=== PATIENT | male | born 1940 | race Caucasian/White ===

== ENCOUNTER → 2016-06-24 | Outpatient (CLI) | payer MEDICARE, OTHER | END | disposition home or self-care (01) | LOC: Rad HDHVI 11:01 | PROVIDERS: ATTEND Internal Medicine Cardiovascular Disease | DX: M41.84 Other forms of scoliosis, thoracic region (principal); M47.894 Other spondylosis, thoracic region; I77.810 Thoracic aortic ectasia | CPT/HCPCS: 72070 ==

== ENCOUNTER → 2016-07-02 | Outpatient (CLI) | payer MEDICARE, OTHER | END | disposition home or self-care (01) | LOC: Rad HDHVI 10:02 | PROVIDERS: ATTEND Internal Medicine Cardiovascular Disease | DX: I50.9 Heart failure, unspecified (principal); I48.0 Paroxysmal atrial fibrillation; M48.06 Spinal stenosis, lumbar region | CPT/HCPCS: 93306 ==

== ENCOUNTER → 2016-11-20 | Outpatient (CLI) | payer MEDICARE, OTHER ==
[~2016-11-20] VITALS: Ht 177.8 cm; Wt 99.8 kg
[~2016-11-20] MED LIST: ADENOSINE 84 MG in GIVE UN-DILUTED 0 ML IV ONE; ADENOSINE 90 MG/30 ML INJ IV ONE
== END | disposition home or self-care (01) ==
LOC: Rad HDHVI 10:04
PROVIDERS: ATTEND Internal Medicine Cardiovascular Disease
DX: I11.0 Hypertensive heart disease with heart failure (principal); J44.9 Chronic obstructive pulmonary disease, unspecified; E78.00 Pure hypercholesterolemia, unspecified; F17.210 Nicotine dependence, cigarettes, uncomplicated; Z95.0 Presence of cardiac pacemaker
CPT/HCPCS: 78452; 93005; 96374; 96375; A9500; J0153

== ENCOUNTER → 2016-12-22 | Outpatient (CLI) | payer MEDICARE, OTHER ==
[~2016-12-22] MED LIST changes: -ADENOSINE 84 MG in GIVE UN-DILUTED 0 ML IV ONE; -ADENOSINE 90 MG/30 ML INJ IV ONE; +ALPR0.25 PO; +ATOR20TA50 PO; +CARI-316 PO; +CHOL1TAB28 PO; +GABA-497 PO; +HYDR-4663 PO; +LIDO5DIS21 TOP; +LISI-706 PO; +METO-158 PO; +OME20T PO; +WARF4TAB33 PO
[2016-12-22 11:00] VITALS: BP 124/76
[2016-12-22 11:30] VITALS: BP 137/80
[2016-12-22 16:03] LABS: CONDITION Y; DEFINITIVE SEE PRINTOUT; Hemoglobin 11.8 g/dL (13.5-17.5); Mean Corpuscular Hemoglobin 23.9 pg (28.0-32.0); Mean Corpuscular Volume 74.7 fL (80.0-100.0); Mean Platelet Volume 10.8 fL (7.4-10.4); Platelet Count (auto) 184 10^3/uL (140-450); SUSPECT SEE PRINTOUT; White Blood Cell 20.9 10^3/uL (4.4-10.8)
[2016-12-22 16:10] LABS: Metamyelocytes % 0; Myelocytes % 0; Promyelocytes % 0; Reactive Lymphocytes 0; Red Cell Distribution Width 22.7 % (11.6-16.0)
[2016-12-22 16:11] LABS: INR 2.27 (0.9-1.15); Partial Thromboplastin Time 37.3 sec (22.64-33.71)
[2016-12-22 16:15] LABS: BUN/Creatinine Ratio 13.6; Calcium 8.7 mg/dL (8.5-10.1); Potassium 3.9 mmol/L (3.5-5.1)
[2016-12-22 16:25] LABS: Prothrombin Time 24.9 sec (9.37-12.3)
[2016-12-22 16:44] LABS: Anisocytosis Slight; Hypochromia Slight; Large Platelets FEW; Platelet Estimate Adequate
== END | disposition home or self-care (01) ==
LOC: Rad HDHVI 10:56
PROVIDERS: ATTEND Internal Medicine Cardiovascular Disease
DX: Z01.812 Encounter for preprocedural laboratory examination (principal); I10 Essential (primary) hypertension; J44.9 Chronic obstructive pulmonary disease, unspecified; D64.9 Anemia, unspecified; R79.1 Abnormal coagulation profile; Z95.0 Presence of cardiac pacemaker
CPT/HCPCS: 36415; 71020; 80048; 85007; 85027; 85610; 85730; 93005; G0463

== ENCOUNTER 2016-12-24 06:59 | Day surgery (SDC) | payer MEDICARE, OTHER ==
[2016-12-24] MEDS ORDERED: LIDOCAINE 2%HCL (LOCAL ANESTH.) INJ 20ML MDV ONE ×2 (07:37→08:57)
[2016-12-24] MEDS ORDERED: IOHEXOL 350 MG/ML 100ML IJ ONE (07:37)
[2016-12-24] MEDS ORDERED: fentaNYL CITRATE 100 MCG/2 ML VL ONE (08:32)
[2016-12-24] MEDS ORDERED: MIDAZOLAM HCL 1MG/1ML-2 ML VIAL ONE (08:32)
== END 2016-12-24 13:00 | disposition home or self-care (01) ==
LOC: CATH 06:59
PROVIDERS: ATTEND Internal Medicine Cardiovascular Disease
DX: I25.10 Atherosclerotic heart disease of native coronary artery without angina pectoris (principal); J44.9 Chronic obstructive pulmonary disease, unspecified; F17.200 Nicotine dependence, unspecified, uncomplicated; I10 Essential (primary) hypertension; E78.5 Hyperlipidemia, unspecified; I73.9 Peripheral vascular disease, unspecified
CPT/HCPCS: 93458; C1760; C1894; J1644; J2250; J3010; J7030; Q9967

== ENCOUNTER → 2017-07-06 | Outpatient (CLI) | payer MEDICARE, OTHER ==
[~2017-07-06] MED LIST changes: -GABA-497 PO; +GABA300C10 PO; -HYDR-4663 PO; +HYDR-4683 PO
== END | disposition home or self-care (01) ==
LOC: Rad HDHVI 10:01
PROVIDERS: ATTEND Internal Medicine Cardiovascular Disease
DX: M79.89 Other specified soft tissue disorders (principal)
CPT/HCPCS: 93926; 93970

== ENCOUNTER → 2017-08-20 | Outpatient (CLI) | payer MEDICARE, OTHER ==
[2017-08-20 12:24] LABS: BUN/Creatinine Ratio 15.3; Calcium 9.4 mg/dL (8.5-10.1); Potassium 4.2 mmol/L (3.5-5.1); Uric Acid 7.9 mg/dL (3.5-7.2)
== END | disposition home or self-care (01) ==
LOC: CHF HDHVI 10:23
PROVIDERS: ATTEND Internal Medicine Cardiovascular Disease
DX: M10.9 Gout, unspecified (principal); I10 Essential (primary) hypertension; I48.91 Unspecified atrial fibrillation
CPT/HCPCS: 36415; 80048; 84550; G0463

== ENCOUNTER → 2017-08-27 | Outpatient (CLI) | payer MEDICARE, OTHER ==
[2017-08-27 11:05] VITALS: BP 121/66
== END | disposition home or self-care (01) ==
LOC: LAB 11:07
PROVIDERS: ATTEND Internal Medicine Cardiovascular Disease
DX: I48.91 Unspecified atrial fibrillation (principal)
CPT/HCPCS: G0463

== ENCOUNTER → 2017-09-03 | Outpatient (CLI) | payer MEDICARE, OTHER ==
[2017-09-03 11:55] VITALS: BP 94/64
[2017-09-03 12:15] VITALS: BP 99/59
== END | disposition home or self-care (01) ==
LOC: CHF HDHVI 11:50
PROVIDERS: ATTEND Internal Medicine Cardiovascular Disease
DX: I48.91 Unspecified atrial fibrillation (principal)
CPT/HCPCS: 85610; G0463

== ENCOUNTER → 2017-09-08 | Outpatient (CLI) | payer MEDICARE, OTHER ==
[2017-09-08 11:10] VITALS: BP 90/54
[2017-09-08 11:30] VITALS: BP 80/59
== END | disposition home or self-care (01) ==
LOC: CHF HDHVI 11:06
PROVIDERS: ATTEND Internal Medicine Cardiovascular Disease
DX: I48.91 Unspecified atrial fibrillation (principal); I10 Essential (primary) hypertension
CPT/HCPCS: 85610; G0463

== ENCOUNTER → 2017-09-21 | Outpatient (CLI) | payer MEDICARE, OTHER ==
[~2017-09-21] VITALS: Ht 30.5 cm; Wt 88.0 kg
[~2017-09-21] MED LIST changes: +SODIUM CHLORIDE 0.9% 500 ML IV ONE
[2017-09-21 12:20] VITALS: BP 107/63
[2017-09-21 16:18] LABS: Hematocrit 36.2 % (41.0-53.0); Hemoglobin 10.9 g/dL (13.5-17.5); Mean Corpuscular Hemoglobin 24.1 pg (28.0-32.0); Mean Corpuscular Volume 80.6 fL (80.0-100.0); Platelet Count (auto) 272 10^3/uL (140-450); Red Blood Cells 4.49 10^6/uL (4.5-5.90)
[2017-09-21 16:19] LABS: BUN/Creatinine Ratio 12.9; Calcium 9.1 mg/dL (8.5-10.1); Magnesium 2.3 mg/dL (1.6-2.6); Potassium 4.3 mmol/L (3.5-5.1)
[2017-09-21 16:46] LABS: Red Cell Distribution Width 21.5 % (11.8-14.3)
[2017-09-21 16:55] LABS: Basophils % (manual) 0 (0.0-2.0); Eosinophils % (manual) 0 (0-7); Promyelocytes % 0; Reactive Lymphocytes 0
[2017-09-21 18:30] LABS: Band Neutrophils % (manual) 4; Lymphocytes % (manual) 1 (10.0-50.0); Metamyelocytes % 7; Monocytes % (manual) 2 (0-12); Myelocytes % 6
[2017-09-21 18:31] LABS: Blast Cells 10
== END | disposition home or self-care (01) ==
LOC: CHF HDHVI 10:47
PROVIDERS: ATTEND Internal Medicine Cardiovascular Disease
DX: D64.9 Anemia, unspecified (principal); I10 Essential (primary) hypertension; E83.40 Disorders of magnesium metabolism, unspecified; I48.91 Unspecified atrial fibrillation
CPT/HCPCS: 36415; 80048; 83735; 85007; 85027; 85610; 88300; 96360; G0463; J7040

== ENCOUNTER → 2017-09-22 | Outpatient (CLI) | payer MEDICARE, OTHER ==
[~2017-09-22] MED LIST changes: +KETOROLAC TROMETH 60MG/2ML VIAL IM ONE; -SODIUM CHLORIDE 0.9% 500 ML IV ONE
[2017-09-22 08:55] VITALS: BP 107/59
[2017-09-22 09:53] LABS: BUN/Creatinine Ratio 12.2; Calcium 8.9 mg/dL (8.5-10.1); Potassium 3.7 mmol/L (3.5-5.1)
[2017-09-22 10:15] VITALS: BP 106/58
[2017-09-22 10:18] LABS: Hematocrit 35.3 % (41.0-53.0); Hemoglobin 10.7 g/dL (13.5-17.5); Mean Corpuscular Hemoglobin 24.1 pg (28.0-32.0); Mean Corpuscular Hgb Conc. 30.2 g/dL (32.0-36.0); Mean Corpuscular Volume 79.8 fL (80.0-100.0); Platelet Count (auto) 254 10^3/uL (140-450); Red Blood Cells 4.43 10^6/uL (4.5-5.90)
[2017-09-22 10:21] LABS: Red Cell Distribution Width 21.2 % (11.8-14.3); White Blood Cell 205.2 10^3/uL (4.4-10.8)
[2017-09-22 10:27] LABS: Basophils % (manual) 0 (0.0-2.0); Promyelocytes % 0; Reactive Lymphocytes 0
[2017-09-22 13:11] LABS: Band Neutrophils % (manual) 6; Blast Cells 1; Eosinophils % (manual) 1 (0-7); Lymphocytes % (manual) 1 (10.0-50.0); Metamyelocytes % 1; Monocytes % (manual) 2 (0-12); Myelocytes % 25
== END | disposition home or self-care (01) ==
LOC: CHF HDHVI 08:54
PROVIDERS: ATTEND Internal Medicine Cardiovascular Disease
DX: D72.829 Elevated white blood cell count, unspecified (principal); I10 Essential (primary) hypertension
CPT/HCPCS: 36415; 80048; 85007; 85027; 96372; G0463; J1885

== ENCOUNTER → 2017-10-25 | Outpatient (CLI) | payer MEDICARE, OTHER ==
[~2017-10-25] MED LIST changes: +AMIO200T33 PO; +DILT30TA24 PO; -KETOROLAC TROMETH 60MG/2ML VIAL IM ONE; +METO25TA62 PO; +NILO150C PO
[2017-10-25 14:21] LABS: Hematocrit 35.4 % (41.0-53.0); Hemoglobin 11.2 g/dL (13.5-17.5); White Blood Cell 10.9 10^3/uL (4.4-10.8)
[2017-10-25 14:22] LABS: Mean Corpuscular Hemoglobin 26.7 pg (28.0-32.0); Mean Corpuscular Hgb Conc. 31.7 g/dL (32.0-36.0); Mean Corpuscular Volume 84.2 fL (80.0-100.0); Platelet Count (auto) 390 10^3/uL (140-450)
[2017-10-25 14:28] LABS: Red Cell Distribution Width 21.1 % (11.8-14.3)
[2017-10-25 14:40] LABS: Band Neutrophils % (manual) 0; Basophils % (manual) 0 (0.0-2.0); Blast Cells 0; Eosinophils % (manual) 0 (0-7); Promyelocytes % 0; Reactive Lymphocytes 0
[2017-10-25 15:57] LABS: Lymphocytes % (manual) 22 (10.0-50.0); Metamyelocytes % 1; Monocytes % (manual) 8 (0-12); Myelocytes % 4
== END | disposition home or self-care (01) ==
LOC: LAB 13:36
PROVIDERS: ATTEND Internal Medicine Cardiovascular Disease
DX: D64.0 Hereditary sideroblastic anemia (principal); I11.0 Hypertensive heart disease with heart failure; I50.9 Heart failure, unspecified; I48.91 Unspecified atrial fibrillation; D64.9 Anemia, unspecified; J44.9 Chronic obstructive pulmonary disease, unspecified; E78.5 Hyperlipidemia, unspecified; I73.9 Peripheral vascular disease, unspecified; E78.00 Pure hypercholesterolemia, unspecified; I48.0 Paroxysmal atrial fibrillation; Z87.891 Personal history of nicotine dependence; Z95.0 Presence of cardiac pacemaker
CPT/HCPCS: 36415; 85007; 85027

== ENCOUNTER 2017-11-02 15:27 | Inpatient (IN) | payer MEDICARE, OTHER ==
[~2017-11-02] VITALS: Ht 177.8 cm; Wt 93.0 kg
[~2017-11-02 15:27] MED LIST changes: -AMIO200T33 PO; -DILT30TA24 PO; -IOHEXOL 300 MG/ML 100ML BOTTLE IJ ONE; -METO25TA62 PO; -NILO150C PO; -VANCOMYCIN 1GM/250ML 250 ML IV ONE; -cefTRIAXone 1GM/10ml IVPUSH 10 ML IV ONE; -cefTRIAXone SOD 1,000 MG VL IM ONE
[2017-11-02 16:00] VITALS: BP 131/59
[2017-11-02] MEDS: SODIUM CHLORIDE 0.9% 1,000 ML IV SCH (16:00)
[2017-11-02 16:32] VITALS: BP 131/59
[2017-11-02 16:35] VITALS: BP 131/59
[2017-11-02] MEDS ORDERED: AMIO200T33 PO (17:12)
[2017-11-02] MEDS ORDERED: METO25TA62 PO (17:12)
[2017-11-02] MEDS ORDERED: DILT30TA24 PO (17:12)
[2017-11-02] MEDS ORDERED: NILO150C PO (17:14)
[2017-11-02] MEDS: cefTRIAXone 1GM/10ml IVPUSH 10 ML IV SCH (17:15)
[2017-11-02] MEDS: DILTIAZEM HCL 60 MG TAB PO SCH ×2 (17:50→22:21)
[2017-11-02] MEDS ORDERED: VANCOMYCIN 1GM/250ML 250 ML IV ONE (18:00)
[2017-11-02] MEDS: HYDROcodone-ACET 10/325MG TAB PO PRN (18:31)
[2017-11-02 22:00] VITALS: BP 118/67
[2017-11-02] MEDS: METOPROLOL SUCCINATE XL 50 MG TAB PO SCH (22:00)
[2017-11-02] MEDS: GABAPENTIN 300 MG CAP PO SCH (22:17)
[2017-11-02] MEDS: ATORVASTATIN 20 MG TAB PO SCH (22:18)
[2017-11-02] MEDS: TASIGNA 150 MG PO SCH (22:18)
[2017-11-02] MEDS: AMIODARONE HCL 200 MG TAB PO SCH (22:19)
[2017-11-02] MEDS: CARISOPRODOL 350 MG TAB PO PRN (22:20)
[2017-11-02] MEDS: ALPRAZolam 0.25 MG TAB PO SCH (22:20)
[2017-11-03] MEDS: SODIUM CHLORIDE 0.9% 1,000 ML IV SCH ×3 (02:15→22:15)
[2017-11-03] MEDS: DILTIAZEM HCL 60 MG TAB PO SCH ×4 (05:15→21:23)
[2017-11-03] MEDS: GABAPENTIN 300 MG CAP PO SCH ×3 (05:15→21:23)
[2017-11-03 05:30] VITALS: BP 127/67
[2017-11-03 06:32] LABS: Hematocrit 29.5 % (41.0-53.0); Hemoglobin 9.5 g/dL (13.5-17.5); Mean Corpuscular Hemoglobin 27.9 pg (28.0-32.0); Mean Corpuscular Volume 87.1 fL (80.0-100.0); Platelet Count (auto) 147 10^3/uL (140-450); Red Blood Cells 3.39 10^6/uL (4.5-5.90); White Blood Cell 7.6 10^3/uL (4.4-10.8)
[2017-11-03 06:57] LABS: Potassium 3.3 mmol/L (3.5-5.1)
[2017-11-03 07:15] LABS: Albumin 2.8 g/dL (3.4-5.0); BUN/Creatinine Ratio 7.1; Bilirubin, Total 0.9 mg/dL (0.2-1.0); Calcium 8.2 mg/dL (8.5-10.1); Total Protein 6.2 g/dL (6.4-8.2)
[2017-11-03 07:27] LABS: Red Cell Distribution Width 25.7 % (11.8-14.3)
[2017-11-03 07:29] LABS: Band Neutrophils % (manual) 0; Basophils % (manual) 0 (0.0-2.0); Blast Cells 0; Eosinophils % (manual) 0 (0-7); Metamyelocytes % 0; Promyelocytes % 0; Reactive Lymphocytes 0
[2017-11-03 09:00] VITALS: BP 136/69
[2017-11-03 10:00] LABS: Lymphocytes % (manual) 18 (10.0-50.0); Monocytes % (manual) 10 (0-12); Myelocytes % 1
[2017-11-03] MEDS: cefTRIAXone 1GM/10ml IVPUSH 10 ML IV SCH (10:09)
[2017-11-03] MEDS: PANTOPRAZOLE 40 MG TAB PO SCH (10:11)
[2017-11-03] MEDS: TASIGNA 150 MG PO SCH ×2 (10:11→21:25)
[2017-11-03] MEDS: AMIODARONE HCL 200 MG TAB PO SCH ×2 (10:11→21:24)
[2017-11-03] MEDS: METOPROLOL SUCCINATE XL 50 MG TAB PO SCH ×2 (10:23→21:23)
[2017-11-03] MEDS: ALPRAZolam 0.25 MG TAB PO SCH ×2 (10:23→21:23)
[2017-11-03 13:00] VITALS: BP 138/79
[2017-11-03] MEDS: HYDROcodone-ACET 10/325MG TAB PO PRN (14:18)
[2017-11-03 15:03] LABS: % Iron Saturation 13.2 % (20-55)
[2017-11-03 15:07] LABS: Folate (Folic Acid) 5.57 ng/mL (5.38-24)
[2017-11-03 16:51] VITALS: BP 139/72
[2017-11-03 20:00] VITALS: BP 111/64
[2017-11-03] MEDS: CARISOPRODOL 350 MG TAB PO PRN (21:22)
[2017-11-03] MEDS: ATORVASTATIN 20 MG TAB PO SCH (21:24)
[2017-11-04 04:59] VITALS: BP 117/55
[2017-11-04] MEDS: GABAPENTIN 300 MG CAP PO SCH ×3 (05:18→21:51)
[2017-11-04] MEDS: DILTIAZEM HCL 60 MG TAB PO SCH ×4 (05:19→21:54)
[2017-11-04 07:07] LABS: Immunoglobulin G, Serum 669 mg/dL (700-1600)
[2017-11-04] MEDS: SODIUM CHLORIDE 0.9% 1,000 ML IV SCH ×2 (08:15→18:46)
[2017-11-04 09:00] VITALS: BP 144/66
[2017-11-04] MEDS: TASIGNA 150 MG PO SCH ×2 (10:00→21:54)
[2017-11-04] MEDS: cefTRIAXone 1GM/10ml IVPUSH 10 ML IV SCH (10:28)
[2017-11-04] MEDS: AMIODARONE HCL 200 MG TAB PO SCH ×2 (10:28→21:52)
[2017-11-04] MEDS: ALPRAZolam 0.25 MG TAB PO SCH ×2 (10:32→21:51)
[2017-11-04] MEDS: PANTOPRAZOLE 40 MG TAB PO SCH (10:32)
[2017-11-04] MEDS: METOPROLOL SUCCINATE XL 50 MG TAB PO SCH ×2 (10:32→21:53)
[2017-11-04 13:00] VITALS: BP 143/80
[2017-11-04] MEDS: HYDROcodone-ACET 10/325MG TAB PO PRN (13:03)
[2017-11-04 17:10] VITALS: BP 136/77
[2017-11-04] MEDS: ATORVASTATIN 20 MG TAB PO SCH (21:53)
[2017-11-04] MEDS: CARISOPRODOL 350 MG TAB PO PRN (21:53)
[2017-11-04 22:41] VITALS: BP 145/74
[2017-11-05] MEDS: SODIUM CHLORIDE 0.9% 1,000 ML IV SCH ×2 (04:15→14:41)
[2017-11-05] MEDS: GABAPENTIN 300 MG CAP PO SCH ×3 (05:14→21:13)
[2017-11-05] MEDS: DILTIAZEM HCL 60 MG TAB PO SCH ×4 (05:14→21:13)
[2017-11-05 05:37] VITALS: BP 126/86
[2017-11-05] MEDS: cefTRIAXone 1GM/10ml IVPUSH 10 ML IV SCH (08:50)
[2017-11-05 09:00] VITALS: BP 116/55
[2017-11-05] MEDS: ALPRAZolam 0.25 MG TAB PO SCH ×2 (09:36→21:14)
[2017-11-05] MEDS: AMIODARONE HCL 200 MG TAB PO SCH ×2 (09:37→21:14)
[2017-11-05] MEDS: METOPROLOL SUCCINATE XL 50 MG TAB PO SCH ×2 (09:37→21:15)
[2017-11-05] MEDS: PANTOPRAZOLE 40 MG TAB PO SCH (09:38)
[2017-11-05] MEDS: TASIGNA 150 MG PO SCH ×2 (09:38→21:16)
[2017-11-05 13:00] VITALS: BP 116/55
[2017-11-05] MEDS: SODIUM FERR GLUC 62.5MG/5ML 125 MG in SODIUM CHL 0.9% 100 ML IV SCH (13:18)
[2017-11-05 16:55] VITALS: BP 139/74
[2017-11-05] MEDS: ATORVASTATIN 20 MG TAB PO SCH (21:14)
[2017-11-05] MEDS: CARISOPRODOL 350 MG TAB PO PRN (21:14)
[2017-11-05 22:12] VITALS: BP 125/75
[2017-11-06] MEDS: HYDROcodone-ACET 10/325MG TAB PO PRN ×3 (00:13→21:41)
[2017-11-06] MEDS: SODIUM CHLORIDE 0.9% 1,000 ML IV SCH ×3 (00:15→20:15)
[2017-11-06 05:30] VITALS: BP 120/83
[2017-11-06] MEDS: GABAPENTIN 300 MG CAP PO SCH ×3 (06:00→21:41)
[2017-11-06] MEDS: DILTIAZEM HCL 60 MG TAB PO SCH ×4 (06:01→21:43)
[2017-11-06] MEDS: ALPRAZolam 0.25 MG TAB PO SCH ×2 (06:16→21:41)
[2017-11-06 08:00] VITALS: BP 137/76
[2017-11-06 08:15] VITALS: BP 137/76
[2017-11-06] MEDS: PANTOPRAZOLE 40 MG TAB PO SCH (10:00)
[2017-11-06] MEDS: METOPROLOL SUCCINATE XL 50 MG TAB PO SCH ×2 (10:02→21:42)
[2017-11-06] MEDS: cefTRIAXone 1GM/10ml IVPUSH 10 ML IV SCH (10:02)
[2017-11-06] MEDS: AMIODARONE HCL 200 MG TAB PO SCH ×2 (10:03→21:43)
[2017-11-06] MEDS: TASIGNA 150 MG PO SCH ×2 (10:05→21:44)
[2017-11-06 13:07] VITALS: BP 131/75
[2017-11-06] MEDS: SODIUM FERR GLUC 62.5MG/5ML 125 MG in SODIUM CHL 0.9% 100 ML IV SCH (13:30)
[2017-11-06 16:41] VITALS: BP 125/74
[2017-11-06] MEDS: ATORVASTATIN 20 MG TAB PO SCH (21:40)
[2017-11-06] MEDS: CARISOPRODOL 350 MG TAB PO PRN (21:40)
[2017-11-06 22:00] VITALS: BP 127/77
[2017-11-07 04:40] VITALS: BP 137/80
[2017-11-07] MEDS: DILTIAZEM HCL 60 MG TAB PO SCH ×4 (06:17→22:00)
[2017-11-07] MEDS: SODIUM CHLORIDE 0.9% 1,000 ML IV SCH ×2 (06:17→16:15)
[2017-11-07] MEDS: GABAPENTIN 300 MG CAP PO SCH ×3 (06:17→22:01)
[2017-11-07 08:15] VITALS: BP 137/80
[2017-11-07 09:00] VITALS: BP 138/93
[2017-11-07] MEDS: TASIGNA 150 MG PO SCH ×2 (09:26→22:13)
[2017-11-07] MEDS: cefTRIAXone 1GM/10ml IVPUSH 10 ML IV SCH (09:26)
[2017-11-07] MEDS: ALPRAZolam 0.25 MG TAB PO SCH ×2 (09:28→22:01)
[2017-11-07] MEDS: METOPROLOL SUCCINATE XL 50 MG TAB PO SCH ×2 (09:28→22:01)
[2017-11-07] MEDS: PANTOPRAZOLE 40 MG TAB PO SCH (09:28)
[2017-11-07] MEDS: SODIUM FERR GLUC 62.5MG/5ML 125 MG in SODIUM CHL 0.9% 100 ML IV SCH (11:47)
[2017-11-07 13:00] VITALS: BP 126/76
[2017-11-07 17:00] VITALS: BP 129/71
[2017-11-07 21:27] VITALS: BP 149/92
[2017-11-07] MEDS: AMIODARONE HCL 200 MG TAB PO SCH (22:00)
[2017-11-07] MEDS: ATORVASTATIN 20 MG TAB PO SCH (22:00)
[2017-11-07] MEDS: CARISOPRODOL 350 MG TAB PO PRN (22:02)
[2017-11-07] MEDS: HYDROcodone-ACET 10/325MG TAB PO PRN (22:02)
[2017-11-08] MEDS: SODIUM CHLORIDE 0.9% 1,000 ML IV SCH ×3 (03:41→22:07)
[2017-11-08 04:45] VITALS: BP 127/81
[2017-11-08] MEDS: GABAPENTIN 300 MG CAP PO SCH ×3 (05:48→22:06)
[2017-11-08] MEDS: DILTIAZEM HCL 60 MG TAB PO SCH ×4 (05:48→22:06)
[2017-11-08 08:00] VITALS: BP 124/74
[2017-11-08 09:00] VITALS: BP 124/74
[2017-11-08] MEDS: TASIGNA 150 MG PO SCH ×2 (09:11→22:03)
[2017-11-08] MEDS: cefTRIAXone 1GM/10ml IVPUSH 10 ML IV SCH (09:11)
[2017-11-08] MEDS: PANTOPRAZOLE 40 MG TAB PO SCH (09:11)
[2017-11-08] MEDS: ALPRAZolam 0.25 MG TAB PO SCH ×2 (09:13→22:04)
[2017-11-08] MEDS: AMIODARONE HCL 200 MG TAB PO SCH ×2 (09:13→22:05)
[2017-11-08] MEDS: METOPROLOL SUCCINATE XL 50 MG TAB PO SCH ×2 (09:13→22:04)
[2017-11-08] MEDS: SODIUM FERR GLUC 62.5MG/5ML 125 MG in SODIUM CHL 0.9% 100 ML IV SCH (12:29)
[2017-11-08 13:00] VITALS: BP 130/77
[2017-11-08 14:12] LABS: Hematocrit 31.7 % (41.0-53.0); Hemoglobin 9.9 g/dL (13.5-17.5); Mean Corpuscular Hemoglobin 27.1 pg (28.0-32.0); Mean Corpuscular Hgb Conc. 31.2 g/dL (32.0-36.0); Mean Corpuscular Volume 86.8 fL (80.0-100.0); Platelet Count (auto) 221 10^3/uL (140-450); Red Blood Cells 3.65 10^6/uL (4.5-5.90); White Blood Cell 13.5 10^3/uL (4.4-10.8)
[2017-11-08 14:15] LABS: Red Cell Distribution Width 24.1 % (11.8-14.3)
[2017-11-08 14:16] LABS: Band Neutrophils % (manual) 0; Basophils % (manual) 0 (0.0-2.0); Blast Cells 0; Eosinophils % (manual) 0 (0-7); Promyelocytes % 0; Reactive Lymphocytes 0
[2017-11-08 15:16] LABS: Lymphocytes % (manual) 5 (10.0-50.0); Metamyelocytes % 3; Monocytes % (manual) 7 (0-12); Myelocytes % 3
[2017-11-08 17:00] VITALS: BP 151/94
[2017-11-08 22:04] VITALS: BP 143/75
[2017-11-08] MEDS: ATORVASTATIN 20 MG TAB PO SCH (22:04)
[2017-11-08] MEDS: HYDROcodone-ACET 10/325MG TAB PO PRN (22:34)
[2017-11-08] MEDS: CARISOPRODOL 350 MG TAB PO PRN (22:34)
[2017-11-09 04:57] VITALS: BP 133/77
[2017-11-09] MEDS: GABAPENTIN 300 MG CAP PO SCH ×3 (06:25→21:58)
[2017-11-09] MEDS: DILTIAZEM HCL 60 MG TAB PO SCH ×4 (06:26→22:00)
[2017-11-09 07:23] VITALS: BP 106/70
[2017-11-09 08:00] VITALS: BP 133/84
[2017-11-09] MEDS: SODIUM CHLORIDE 0.9% 1,000 ML IV SCH ×2 (08:15→18:15)
[2017-11-09] MEDS: AMIODARONE HCL 200 MG TAB PO SCH ×2 (09:17→21:58)
[2017-11-09] MEDS: PANTOPRAZOLE 40 MG TAB PO SCH (09:17)
[2017-11-09] MEDS: TASIGNA 150 MG PO SCH ×2 (09:17→22:18)
[2017-11-09] MEDS: METOPROLOL SUCCINATE XL 50 MG TAB PO SCH ×2 (09:18→22:01)
[2017-11-09] MEDS: cefTRIAXone 1GM/10ml IVPUSH 10 ML IV SCH (09:19)
[2017-11-09] MEDS: ALPRAZolam 0.25 MG TAB PO SCH ×2 (09:19→21:58)
[2017-11-09 11:49] VITALS: BP 138/83
[2017-11-09 13:58] LABS: INR 1.09 (0.9-1.15); Prothrombin Time 11.6 sec (9.27-12.13)
[2017-11-09] MEDS: SODIUM FERR GLUC 62.5MG/5ML 125 MG in SODIUM CHL 0.9% 100 ML IV SCH (14:37)
[2017-11-09 16:14] VITALS: BP 146/79
[2017-11-09] MEDS: ATORVASTATIN 20 MG TAB PO SCH (21:57)
[2017-11-09 22:00] VITALS: BP 139/83
[2017-11-09] MEDS: CARISOPRODOL 350 MG TAB PO PRN (22:18)
[2017-11-09] MEDS: HYDROcodone-ACET 10/325MG TAB PO PRN (22:19)
[2017-11-10] MEDS: SODIUM CHLORIDE 0.9% 1,000 ML IV SCH ×2 (04:15→14:15)
[2017-11-10 05:30] VITALS: BP 105/60
[2017-11-10] MEDS: GABAPENTIN 300 MG CAP PO SCH ×3 (05:48→21:48)
[2017-11-10] MEDS: DILTIAZEM HCL 60 MG TAB PO SCH ×4 (05:50→21:49)
[2017-11-10 08:27] VITALS: BP 116/61
[2017-11-10] MEDS: cefTRIAXone 1GM/10ml IVPUSH 10 ML IV SCH (10:47)
[2017-11-10] MEDS: AMIODARONE HCL 200 MG TAB PO SCH ×2 (10:48→21:48)
[2017-11-10] MEDS: TASIGNA 150 MG PO SCH ×2 (10:48→21:51)
[2017-11-10] MEDS: PANTOPRAZOLE 40 MG TAB PO SCH (10:48)
[2017-11-10] MEDS: METOPROLOL SUCCINATE XL 50 MG TAB PO SCH ×2 (10:49→21:50)
[2017-11-10] MEDS: ALPRAZolam 0.25 MG TAB PO SCH ×2 (10:49→21:51)
[2017-11-10] MEDS: SODIUM FERR GLUC 62.5MG/5ML 125 MG in SODIUM CHL 0.9% 100 ML IV SCH (12:00)
[2017-11-10 12:42] VITALS: BP 132/75
[2017-11-10 17:09] VITALS: BP 132/72
[2017-11-10 21:30] VITALS: BP 133/78
[2017-11-10] MEDS: CARISOPRODOL 350 MG TAB PO PRN (21:49)
[2017-11-10] MEDS: ATORVASTATIN 20 MG TAB PO SCH (21:49)
[2017-11-10] MEDS: HYDROcodone-ACET 10/325MG TAB PO PRN (21:58)
[2017-11-11] MEDS: SODIUM CHLORIDE 0.9% 1,000 ML IV SCH ×2 (00:15→09:07)
[2017-11-11 04:56] VITALS: BP 101/60
[2017-11-11] MEDS: GABAPENTIN 300 MG CAP PO SCH (05:15)
[2017-11-11] MEDS: DILTIAZEM HCL 60 MG TAB PO SCH ×2 (05:16→12:00)
[2017-11-11 07:26] LABS: Basophils # (auto) 0.4 uL; Basophils % (auto) 2.7 % (0.0-2.0); Eosinophils # (auto) 0.2 uL; Eosinophils % (auto) 1.2 % (0.0-7.0); Hematocrit 35.9 % (41.0-53.0); Hemoglobin 11.3 g/dL (13.5-17.5); Lymphocytes # (auto) 1.4 uL; Lymphocytes % (auto) 8.4 % (10.0-50.0); Mean Corpuscular Hemoglobin 27.1 pg (28.0-32.0); Mean Corpuscular Hgb Conc. 31.4 g/dL (32.0-36.0); Mean Corpuscular Volume 86.4 fL (80.0-100.0); Monocytes # (auto) 0.9 uL; Monocytes % (auto) 5.5 % (0.0-12.0); Neutrophils # (auto) 13.5 uL; Neutrophils % (auto) 82.2 % (37.0-80.0); Nucleated Red Blood Cells % 0.3 %; Platelet Count (auto) 275 10^3/uL (140-450); Red Blood Cells 4.16 10^6/uL (4.5-5.90); White Blood Cell 16.5 10^3/uL (4.4-10.8)
[2017-11-11 07:31] LABS: BUN/Creatinine Ratio 5.8; Calcium 8.2 mg/dL (8.5-10.1); Red Cell Distribution Width 23.7 % (11.8-14.3)
[2017-11-11 07:50] LABS: Potassium 2.8 mmol/L (3.5-5.1)
[2017-11-11 08:12] VITALS: BP 123/70
[2017-11-11] MEDS ORDERED: POTASSIUM CHL 20 Meq TABLET PO ONE ×3 (08:30→13:00)
[2017-11-11] MEDS: AMIODARONE HCL 200 MG TAB PO SCH (09:05)
[2017-11-11] MEDS: cefTRIAXone 1GM/10ml IVPUSH 10 ML IV SCH (09:05)
[2017-11-11] MEDS: TASIGNA 150 MG PO SCH (09:05)
[2017-11-11] MEDS: PANTOPRAZOLE 40 MG TAB PO SCH (09:06)
[2017-11-11] MEDS: METOPROLOL SUCCINATE XL 50 MG TAB PO SCH (09:06)
[2017-11-11] MEDS: ALPRAZolam 0.25 MG TAB PO SCH (09:06)
[2017-11-11] MEDS: POTASSIUM CHL 20 Meq TABLET PO SCH ×2 (09:06→11:33)
[2017-11-11] MEDS ORDERED: LEVOFLOXACIN 750MG 150 ML IV SCH (12:00)
[2017-11-11] MEDS ORDERED: SODIUM FERR GLUC 62.5MG/5ML 125 MG in SODIUM CHL 0.9% 100 ML IV SCH (13:00)
[2017-11-11 13:40] VITALS: BP 121/69
[2017-11-12] MEDS ORDERED: NILO150C PO (18:04)
[2017-11-12] MEDS ORDERED: HYDR-4683 PO (18:35)
== END 2017-11-11 17:50 | disposition home or self-care (01) | DRG 871 ==
LOC: WEST WING 15:28 → TELE-WESTW 11-06 05:41
PROVIDERS: ADMIT Internal Medicine Cardiovascular Disease; ATTEND Internal Medicine Cardiovascular Disease
DX: A41.9 Sepsis, unspecified organism (principal); J15.0 Pneumonia due to Klebsiella pneumoniae; J90 Pleural effusion, not elsewhere classified; E44.0 Moderate protein-calorie malnutrition; C92.10 Chronic myeloid leukemia, BCR/ABL-positive, not having achieved remission; I48.2 Chronic atrial fibrillation; R16.1 Splenomegaly, not elsewhere classified; J44.0 Chronic obstructive pulmonary disease with (acute) lower respiratory infection; J43.9 Emphysema, unspecified; E86.1 Hypovolemia; D50.9 Iron deficiency anemia, unspecified; I10 Essential (primary) hypertension; Z87.891 Personal history of nicotine dependence; I25.10 Atherosclerotic heart disease of native coronary artery without angina pectoris; Z85.828 Personal history of other malignant neoplasm of skin; Z95.0 Presence of cardiac pacemaker
CPT/HCPCS: 36415; 71046; 71250; 71260; 80048; 80053; 82607; 82746; 82784; 83540; 83550; 84550; 85007; 85025; 85027; 85610; 87040; 87070; 87077; 87081; 87186; 87205; 96365; 96367; G0463; J1956

== ENCOUNTER → 2017-11-02 | Outpatient (CLI) | payer MEDICARE, OTHER ==
[~2017-11-02] MED LIST changes: +IOHEXOL 300 MG/ML 100ML BOTTLE IJ ONE; +VANCOMYCIN 1GM/250ML 250 ML IV ONE; +cefTRIAXone 1GM/10ml IVPUSH 10 ML IV ONE; +cefTRIAXone SOD 1,000 MG VL IM ONE
[2017-11-02 15:02] LABS: Hematocrit 30.9 % (41.0-53.0); Hemoglobin 9.8 g/dL (13.5-17.5); Mean Corpuscular Hemoglobin 27.6 pg (28.0-32.0); Mean Corpuscular Hgb Conc. 31.8 g/dL (32.0-36.0); Mean Corpuscular Volume 86.8 fL (80.0-100.0); Platelet Count (auto) 187 10^3/uL (140-450); Red Blood Cells 3.56 10^6/uL (4.5-5.90); White Blood Cell 12.9 10^3/uL (4.4-10.8)
[2017-11-02 15:25] VITALS: BP 130/66
[2017-11-02 16:03] LABS: Red Cell Distribution Width 25.6 % (11.8-14.3)
[2017-11-02 16:16] LABS: Band Neutrophils % (manual) 0; Basophils % (manual) 0 (0.0-2.0); Blast Cells 0; Eosinophils % (manual) 0 (0-7); Promyelocytes % 0; Reactive Lymphocytes 0
[2017-11-02 16:18] LABS: Lymphocytes % (manual) 12 (10.0-50.0); Metamyelocytes % 2; Monocytes % (manual) 7 (0-12); Myelocytes % 2
[2017-11-04 21:51] LABS: BUN/Creatinine Ratio 5.4; Calcium 8.1 mg/dL (8.5-10.1)
== END | disposition home or self-care (01) ==
LOC: CHF HDHVI 13:40
PROVIDERS: ATTEND Internal Medicine Cardiovascular Disease
DX: J90 Pleural effusion, not elsewhere classified (principal); R04.2 Hemoptysis; J43.9 Emphysema, unspecified; I25.10 Atherosclerotic heart disease of native coronary artery without angina pectoris; R16.1 Splenomegaly, not elsewhere classified; C92.10 Chronic myeloid leukemia, BCR/ABL-positive, not having achieved remission; R07.9 Chest pain, unspecified; R50.9 Fever, unspecified; I48.91 Unspecified atrial fibrillation; I11.0 Hypertensive heart disease with heart failure; I50.9 Heart failure, unspecified; E78.5 Hyperlipidemia, unspecified; E78.00 Pure hypercholesterolemia, unspecified; I48.0 Paroxysmal atrial fibrillation; Z87.891 Personal history of nicotine dependence; Z95.0 Presence of cardiac pacemaker
CPT/HCPCS: 36415; 71046; 80048; 85007; 85027; 96365; 96367; G0463

== ENCOUNTER 2017-11-12 04:15 | Inpatient (IN) | payer MEDICARE, OTHER ==
[~2017-11-12] VITALS: Ht 177.8 cm; Wt 93.4 kg
[~2017-11-12 04:15] MED LIST changes: +AMIO200T33 PO; -CHOL1TAB28 PO; +DILT30TA24 PO; -LIDO5DIS21 TOP; -LISI-706 PO; -METO-158 PO; +METO25TA62 PO; +NILO150C PO; -WARF4TAB33 PO
[2017-11-12] MEDS ORDERED: cefTRIAXone 1GM/10ml IVPUSH 10 ML IV ONE ×2 (04:45→11:30)
[2017-11-12] MEDS ORDERED: methylPREDNISolone SOD SUCC 125 MG/2 ML VL IV ONE (04:45)
[2017-11-12] MEDS ORDERED: ALBUTEROL SULF 2.5 MG/0.5ML(0.5%) NEB SOLN NEB ONE (04:45)
[2017-11-12] MEDS ORDERED: IPRATROPIUM BROM 0.5 MG/2.5ML INH SOL NEB ONE (04:45)
[2017-11-12 05:12] LABS: Neutrophils # (auto) 22.7 uL; Platelet Count (auto) 273 10^3/uL (140-450)
[2017-11-12 05:14] LABS: Basophils # (auto) 0.5 uL; Basophils % (auto) 1.8 % (0.0-2.0); Eosinophils # (auto) 0.2 uL; Eosinophils % (auto) 0.9 % (0.0-7.0); Hematocrit 36.2 % (41.0-53.0); Hemoglobin 11.3 g/dL (13.5-17.5); Mean Corpuscular Hemoglobin 27.6 pg (28.0-32.0); Mean Corpuscular Hgb Conc. 31.1 g/dL (32.0-36.0); Mean Corpuscular Volume 88.9 fL (80.0-100.0); Monocytes # (auto) 1.3 uL; Monocytes % (auto) 5.2 % (0.0-12.0); Neutrophils % (auto) 88.1 % (37.0-80.0); Nucleated Red Blood Cells % 0.1 %; Red Blood Cells 4.08 10^6/uL (4.5-5.90); White Blood Cell 25.8 10^3/uL (4.4-10.8)
[2017-11-12 05:18] LABS: Red Cell Distribution Width 24.8 % (11.8-14.3)
[2017-11-12 05:33] LABS: Alanine Aminotransferase 18 U/L (16-61); Albumin 3.4 g/dL (3.4-5.0); Alkaline Phosphatase 90 U/L (45-117); Anion Gap 10 (5-15); Aspartate Aminotransferase 15 U/L (15-37); Bilirubin, Total 1.1 mg/dL (0.2-1.0); Blood Urea Nitrogen 9 mg/dL (7-18); Calcium 8.1 mg/dL (8.5-10.1); Carbon Dioxide 26 mmol/L (21-32); Chloride 105 mmol/L (98-107); GFR African American 70 mL/min; GFR Non-African American 58 mL/min; Glucose 179 mg/dL (74-106); Magnesium 2.3 mg/dL (1.6-2.6); Potassium 3.7 mmol/L (3.5-5.1); Sodium 141 mmol/L (136-145); Total Protein 7.4 g/dL (6.4-8.2)
[2017-11-12] MEDS: MAGNESIUM SULFATE 1GM/100ML 100 ML IV SCH ×2 (06:11→07:45)
[2017-11-12 08:44] LABS: Urine Bacteria NONE SEEN /hpf (None Seen); Urine Blood Negative /uL (Negative); Urine Hyaline Cast FEW /lpf (0 - 2); Urine Specific Gravity 1.006 (1.001-1.035); Urine WBC 2 /hpf (0 - 3)
[2017-11-12] MEDS ORDERED: MORPHINE SULFATE 8mg/ml INJ SDV IV PRN (11:00)
[2017-11-12] MEDS ORDERED: NITROGLYCERIN 0.4 MG SL TAB SL PRN (11:00)
[2017-11-12] MEDS: SODIUM CHLORIDE 0.9% 1,000 ML IV SCH ×2 (11:00→21:04)
[2017-11-12] MEDS ORDERED: ALPRAZolam 0.25 MG TAB PO ONE (11:30)
[2017-11-12] MEDS ORDERED: PANTOPRAZOLE 40 MG TAB PO ONE (11:30)
[2017-11-12] MEDS ORDERED: AMIODARONE HCL 200 MG TAB PO ONE (11:30)
[2017-11-12] MEDS ORDERED: METOPROLOL SUCCINATE XL 50 MG TAB PO ONE (11:30)
[2017-11-12] MEDS ORDERED: VANCOMYCIN 1GM/250ML 250 ML IV ONE (11:30)
[2017-11-12] MEDS ORDERED: IPRATROPIUM BROM 0.5 MG/2.5ML INH SOL NEB SCH (12:00)
[2017-11-12] MEDS: DILTIAZEM HCL 60 MG TAB PO SCH ×3 (12:16→22:05)
[2017-11-12] MEDS: VANCOMYCIN 1GM/250ML 250 ML IV SCH (13:27)
[2017-11-12] MEDS: methylPREDNISolone SOD SUCC 40 MG/ML VL IV SCH ×2 (14:08→22:02)
[2017-11-12 14:43] VITALS: BP 142/91
[2017-11-12 17:00] VITALS: BP 141/79
[2017-11-12 17:15] VITALS: BP 141/79
[2017-11-12] MEDS ORDERED: NILO150C PO (18:04)
[2017-11-12] MEDS ORDERED: HYDR-4683 PO (18:35)
[2017-11-12] MEDS: IPRATROPIUM BROM 0.5 MG/2.5ML INH SOL NEB SCH (20:07)
[2017-11-12 22:00] VITALS: BP 122/67
[2017-11-12] MEDS ORDERED: [UNRECOGNIZED DRUG - OTHER] PO SCH (22:00)
[2017-11-12] MEDS: ALPRAZolam 0.25 MG TAB PO SCH (22:00)
[2017-11-12] MEDS: METOPROLOL SUCCINATE XL 50 MG TAB PO SCH (22:04)
[2017-11-12] MEDS: ATORVASTATIN 20 MG TAB PO SCH (22:05)
[2017-11-12] MEDS: AMIODARONE HCL 200 MG TAB PO SCH (22:06)
[2017-11-12] MEDS: HYDROcodone-ACET 10/325MG TAB PO PRN (22:07)
[2017-11-12] MEDS: CARISOPRODOL 350 MG TAB PO PRN (22:19)
[2017-11-13] MEDS: IPRATROPIUM BROM 0.5 MG/2.5ML INH SOL NEB SCH ×4 (01:43→19:39)
[2017-11-13 05:00] VITALS: BP 114/71
[2017-11-13] MEDS: methylPREDNISolone SOD SUCC 40 MG/ML VL IV SCH ×3 (06:00→22:00)
[2017-11-13] MEDS: DILTIAZEM HCL 60 MG TAB PO SCH ×4 (06:00→22:00)
[2017-11-13 06:27] LABS: Albumin 2.9 g/dL (3.4-5.0); Calcium 8.4 mg/dL (8.5-10.1); Potassium 4.8 mmol/L (3.5-5.1)
[2017-11-13 06:30] LABS: BUN/Creatinine Ratio 12.1
[2017-11-13 06:32] LABS: Bilirubin, Total 0.7 mg/dL (0.2-1.0); Total Protein 6.8 g/dL (6.4-8.2)
[2017-11-13] MEDS: SODIUM CHLORIDE 0.9% 1,000 ML IV SCH (06:34)
[2017-11-13 09:00] VITALS: BP 144/86
[2017-11-13] MEDS ORDERED: VANCOMYCIN 1GM/250ML 250 ML IV SCH (10:00)
[2017-11-13] MEDS: ALPRAZolam 0.25 MG TAB PO SCH ×2 (11:21→22:00)
[2017-11-13] MEDS: PANTOPRAZOLE 40 MG TAB PO SCH (11:22)
[2017-11-13] MEDS: AMIODARONE HCL 200 MG TAB PO SCH ×2 (11:22→22:00)
[2017-11-13] MEDS: METOPROLOL SUCCINATE XL 50 MG TAB PO SCH ×2 (11:23→22:00)
[2017-11-13] MEDS: TASIGNA 150 MG PO SCH ×2 (11:25→22:00)
[2017-11-13] MEDS: cefTRIAXone 1GM/10ml IVPUSH 10 ML IV SCH (11:26)
[2017-11-13] MEDS: VANCOMYCIN 1GM/250ML 250 ML IV SCH (12:33)
[2017-11-13 12:44] VITALS: BP 146/81
[2017-11-13] MEDS: SODIUM FERR GLUC 62.5MG/5ML 125 MG in SODIUM CHL 0.9% 100 ML IV SCH (14:11)
[2017-11-13 14:17] LABS: Eosinophils # (auto) 0 uL; Lymphocytes # (auto) 0.5 uL; Platelet Count (auto) 227 10^3/uL (140-450); White Blood Cell 24.8 10^3/uL (4.4-10.8)
[2017-11-13 14:19] LABS: Basophils # (auto) 0.1 uL; Basophils % (auto) 0.3 % (0.0-2.0); Hematocrit 34.3 % (41.0-53.0); Hemoglobin 10.7 g/dL (13.5-17.5); Lymphocytes % (auto) 2.2 % (10.0-50.0); Mean Corpuscular Hemoglobin 27.1 pg (28.0-32.0); Mean Corpuscular Hgb Conc. 31.1 g/dL (32.0-36.0); Mean Corpuscular Volume 87.1 fL (80.0-100.0); Monocytes # (auto) 0.7 uL; Neutrophils # (auto) 23.4 uL; Neutrophils % (auto) 94.5 % (37.0-80.0); Red Blood Cells 3.93 10^6/uL (4.5-5.90)
[2017-11-13 14:23] LABS: Red Cell Distribution Width 23.8 % (11.8-14.3)
[2017-11-13 14:30] LABS: BUN/Creatinine Ratio 12.5; Calcium 8.1 mg/dL (8.5-10.1); Potassium 4.4 mmol/L (3.5-5.1)
[2017-11-13] MEDS: POTASSIUM CHL 20 Meq TABLET PO SCH (15:23)
[2017-11-13] MEDS: FUROSEMIDE 40 MG/4 ML VIAL IV SCH (15:25)
[2017-11-13] MEDS: HYDROcodone-ACET 10/325MG TAB PO PRN ×2 (16:34→22:59)
[2017-11-13 17:00] VITALS: BP 143/87
[2017-11-13] MEDS: ATORVASTATIN 20 MG TAB PO SCH (22:00)
[2017-11-13 22:13] VITALS: BP 134/77
[2017-11-13] MEDS: CARISOPRODOL 350 MG TAB PO PRN (22:59)
[2017-11-14 04:46] VITALS: BP 109/69
[2017-11-14] MEDS: methylPREDNISolone SOD SUCC 40 MG/ML VL IV SCH ×3 (05:38→21:43)
[2017-11-14] MEDS: DILTIAZEM HCL 60 MG TAB PO SCH ×4 (05:38→21:46)
[2017-11-14 06:00] LABS: Albumin 3.3 g/dL (3.4-5.0); BUN/Creatinine Ratio 14.7; Bilirubin, Total 0.5 mg/dL (0.2-1.0); Calcium 7.9 mg/dL (8.5-10.1); Potassium 3.5 mmol/L (3.5-5.1); Total Protein 6.9 g/dL (6.4-8.2)
[2017-11-14] MEDS: IPRATROPIUM BROM 0.5 MG/2.5ML INH SOL NEB SCH ×3 (06:14→18:00)
[2017-11-14 07:55] VITALS: BP 106/61
[2017-11-14] MEDS: METOPROLOL SUCCINATE XL 50 MG TAB PO SCH ×2 (10:00→21:45)
[2017-11-14] MEDS: cefTRIAXone 1GM/10ml IVPUSH 10 ML IV SCH (11:07)
[2017-11-14] MEDS: SODIUM FERR GLUC 62.5MG/5ML 125 MG in SODIUM CHL 0.9% 100 ML IV SCH (11:07)
[2017-11-14] MEDS: TASIGNA 150 MG PO SCH ×2 (11:08→21:47)
[2017-11-14] MEDS: PANTOPRAZOLE 40 MG TAB PO SCH (11:08)
[2017-11-14] MEDS: POTASSIUM CHL 20 Meq TABLET PO SCH (11:09)
[2017-11-14] MEDS: AMIODARONE HCL 200 MG TAB PO SCH ×2 (11:09→21:43)
[2017-11-14] MEDS: ALPRAZolam 0.25 MG TAB PO SCH ×2 (11:09→21:47)
[2017-11-14] MEDS: FUROSEMIDE 40 MG/4 ML VIAL IV SCH (11:11)
[2017-11-14] MEDS: VANCOMYCIN 1GM/250ML 250 ML IV SCH (13:00)
[2017-11-14 13:12] VITALS: BP 136/78
[2017-11-14 16:13] VITALS: BP 131/74
[2017-11-14] MEDS: HYDROcodone-ACET 10/325MG TAB PO PRN (20:11)
[2017-11-14] MEDS: ATORVASTATIN 20 MG TAB PO SCH (21:44)
[2017-11-14 22:00] VITALS: BP 132/76
[2017-11-15] MEDS: IPRATROPIUM BROM 0.5 MG/2.5ML INH SOL NEB SCH ×4 (00:08→19:15)
[2017-11-15 04:53] VITALS: BP 119/72
[2017-11-15] MEDS: methylPREDNISolone SOD SUCC 40 MG/ML VL IV SCH ×3 (05:23→21:10)
[2017-11-15] MEDS: DILTIAZEM HCL 60 MG TAB PO SCH ×4 (05:24→21:11)
[2017-11-15 06:28] LABS: Bilirubin, Total 0.5 mg/dL (0.2-1.0); Calcium 7.6 mg/dL (8.5-10.1); Potassium 3.4 mmol/L (3.5-5.1); Total Protein 6.1 g/dL (6.4-8.2)
[2017-11-15 09:00] VITALS: BP 129/79
[2017-11-15] MEDS ORDERED: POTASSIUM CHL 20 Meq TABLET PO ONE (09:45)
[2017-11-15] MEDS: SODIUM FERR GLUC 62.5MG/5ML 125 MG in SODIUM CHL 0.9% 100 ML IV SCH (10:00)
[2017-11-15] MEDS: FUROSEMIDE 40 MG/4 ML VIAL IV SCH (10:15)
[2017-11-15] MEDS: TASIGNA 150 MG PO SCH ×2 (10:16→21:12)
[2017-11-15] MEDS: cefTRIAXone 1GM/10ml IVPUSH 10 ML IV SCH (10:16)
[2017-11-15] MEDS: AMIODARONE HCL 200 MG TAB PO SCH ×2 (10:16→21:11)
[2017-11-15] MEDS: PANTOPRAZOLE 40 MG TAB PO SCH (10:17)
[2017-11-15] MEDS: METOPROLOL SUCCINATE XL 50 MG TAB PO SCH ×2 (10:17→21:12)
[2017-11-15] MEDS: POTASSIUM CHL 20 Meq TABLET PO SCH (10:17)
[2017-11-15] MEDS: ALPRAZolam 0.25 MG TAB PO SCH ×2 (10:17→21:13)
[2017-11-15 10:48] LABS: Red Blood Cells 4.34 10^6/uL (4.5-5.90)
[2017-11-15 10:50] LABS: Hemoglobin 11.7 g/dL (13.5-17.5); Mean Corpuscular Hgb Conc. 30.8 g/dL (32.0-36.0); Mean Corpuscular Volume 87.5 fL (80.0-100.0); Platelet Count (auto) 198 10^3/uL (140-450); Red Cell Distribution Width 24.3 % (11.8-14.3); White Blood Cell 14.8 10^3/uL (4.4-10.8)
[2017-11-15 10:51] LABS: Band Neutrophils % (manual) 0; Basophils % (manual) 0 (0.0-2.0); Blast Cells 0; Eosinophils % (manual) 0 (0-7); Myelocytes % 0; Promyelocytes % 0; Reactive Lymphocytes 0
[2017-11-15 11:58] LABS: Lymphocytes % (manual) 5 (10.0-50.0); Metamyelocytes % 1; Monocytes % (manual) 2 (0-12)
[2017-11-15 12:42] VITALS: BP 129/79
[2017-11-15 13:00] VITALS: BP 145/96
[2017-11-15] MEDS: VANCOMYCIN 1GM/250ML 250 ML IV SCH (13:42)
[2017-11-15] MEDS: HYDROcodone-ACET 10/325MG TAB PO PRN ×2 (13:43→19:38)
[2017-11-15 17:00] VITALS: BP 155/99
[2017-11-15] MEDS: ATORVASTATIN 20 MG TAB PO SCH (21:10)
[2017-11-15 22:00] VITALS: BP 134/81
[2017-11-16] MEDS: VANCOMYCIN 1GM/250ML 250 ML IV SCH ×2 (00:57→15:05)
[2017-11-16 05:00] VITALS: BP 125/72
[2017-11-16] MEDS: methylPREDNISolone SOD SUCC 40 MG/ML VL IV SCH ×2 (05:17→15:06)
[2017-11-16] MEDS: DILTIAZEM HCL 60 MG TAB PO SCH ×2 (05:17→12:13)
[2017-11-16 06:20] LABS: Potassium 3.7 mmol/L (3.5-5.1)
[2017-11-16 06:32] LABS: Albumin 2.9 g/dL (3.4-5.0); BUN/Creatinine Ratio 20.7; Calcium 7.5 mg/dL (8.5-10.1)
[2017-11-16 06:35] LABS: Bilirubin, Total 0.7 mg/dL (0.2-1.0); Total Protein 6.3 g/dL (6.4-8.2)
[2017-11-16] MEDS: IPRATROPIUM BROM 0.5 MG/2.5ML INH SOL NEB SCH ×3 (07:10→12:00)
[2017-11-16 08:18] VITALS: BP 142/88
[2017-11-16] MEDS: SODIUM FERR GLUC 62.5MG/5ML 125 MG in SODIUM CHL 0.9% 100 ML IV SCH (10:00)
[2017-11-16] MEDS: ALPRAZolam 0.25 MG TAB PO SCH (10:00)
[2017-11-16] MEDS: HYDROcodone-ACET 10/325MG TAB PO PRN (10:14)
[2017-11-16] MEDS: cefTRIAXone 1GM/10ml IVPUSH 10 ML IV SCH (10:14)
[2017-11-16] MEDS: PANTOPRAZOLE 40 MG TAB PO SCH (10:15)
[2017-11-16] MEDS: POTASSIUM CHL 20 Meq TABLET PO SCH (10:15)
[2017-11-16] MEDS: AMIODARONE HCL 200 MG TAB PO SCH (10:16)
[2017-11-16] MEDS: METOPROLOL SUCCINATE XL 50 MG TAB PO SCH (10:17)
[2017-11-16] MEDS: FUROSEMIDE 40 MG/4 ML VIAL IV SCH (10:17)
[2017-11-16] MEDS: TASIGNA 150 MG PO SCH (10:22)
[2017-11-16 16:10] VITALS: BP 140/78
[2017-11-16 16:18] VITALS: BP 140/78
[2017-11-16] MEDS ORDERED: TASIGNA 150 MG PO SCH (22:00)
== END 2017-11-16 17:30 | disposition home or self-care (01) | DRG 871 ==
LOC: ER 04:16 → TELE 04:17 → TELE-WESTW 15:40
PROVIDERS: ADMIT Internal Medicine Cardiovascular Disease; ATTEND Internal Medicine Cardiovascular Disease
DX: A41.9 Sepsis, unspecified organism (principal); J18.9 Pneumonia, unspecified organism; J96.90 Respiratory failure, unspecified, unspecified whether with hypoxia or hypercapnia; I11.0 Hypertensive heart disease with heart failure; I48.91 Unspecified atrial fibrillation; I50.20 Unspecified systolic (congestive) heart failure; C92.10 Chronic myeloid leukemia, BCR/ABL-positive, not having achieved remission; J44.0 Chronic obstructive pulmonary disease with (acute) lower respiratory infection; I25.10 Atherosclerotic heart disease of native coronary artery without angina pectoris; Z92.21 Personal history of antineoplastic chemotherapy
CPT/HCPCS: 36415; 36600; 71045; 80048; 80053; 80202; 81001; 82805; 83605; 83735; 83880; 84484; 85007; 85025; 85027; 87040; 87081; 93005; 94640; 96365; 96375

== ENCOUNTER → 2017-11-19 | Outpatient (CLI) | payer MEDICARE, OTHER ==
[~2017-11-19] MED LIST changes: +IOHEXOL 350 MG/ML 100ML IJ ONE
[2017-11-19 10:45] VITALS: BP 126/70
[2017-11-19 12:00] VITALS: BP 158/77
[2017-11-19 16:03] LABS: Basophils # (auto) 0 uL; Basophils % (auto) 0.4 % (0.0-2.0); Eosinophils # (auto) 0.1 uL; Eosinophils % (auto) 0.6 % (0.0-7.0); Hematocrit 39.5 % (41.0-53.0); Hemoglobin 12.7 g/dL (13.5-17.5); Lymphocytes # (auto) 0.3 uL; Lymphocytes % (auto) 2.6 % (10.0-50.0); Mean Corpuscular Hemoglobin 28.2 pg (28.0-32.0); Mean Corpuscular Hgb Conc. 32.2 g/dL (32.0-36.0); Mean Corpuscular Volume 87.7 fL (80.0-100.0); Monocytes # (auto) 0.5 uL; Monocytes % (auto) 4.1 % (0.0-12.0); Neutrophils # (auto) 12.2 uL; Neutrophils % (auto) 92.3 % (37.0-80.0); Nucleated Red Blood Cells % 0.1 %; White Blood Cell 13.2 10^3/uL (4.4-10.8)
[2017-11-19 16:11] LABS: Albumin 3.6 g/dL (3.4-5.0); Calcium 7.4 mg/dL (8.5-10.1); Magnesium 2.5 mg/dL (1.6-2.6); Potassium 3.7 mmol/L (3.5-5.1)
[2017-11-19 16:27] LABS: BUN/Creatinine Ratio 21.2; Bilirubin, Total 1.1 mg/dL (0.2-1.0); Total Protein 6.7 g/dL (6.4-8.2)
[2017-11-19 16:56] LABS: Platelet Count (auto) 118 10^3/uL (140-450); Red Cell Distribution Width 23.3 % (11.8-14.3)
== END | disposition home or self-care (01) ==
LOC: CHF HDHVI 10:57
PROVIDERS: ATTEND Internal Medicine Cardiovascular Disease
DX: J90 Pleural effusion, not elsewhere classified (principal); R16.1 Splenomegaly, not elsewhere classified; I11.0 Hypertensive heart disease with heart failure; I50.23 Acute on chronic systolic (congestive) heart failure; D64.9 Anemia, unspecified; J44.9 Chronic obstructive pulmonary disease, unspecified
CPT/HCPCS: 36415; 71260; 80053; 82306; 82565; 83735; 85025; 93005; G0463; Q9967

== ENCOUNTER → 2017-11-30 | Outpatient (CLI) | payer MEDICARE, BC ==
[~2017-11-30] MED LIST changes: -IOHEXOL 350 MG/ML 100ML IJ ONE
[2017-11-30 11:10] VITALS: BP 115/65
[2017-11-30 11:40] VITALS: BP 104/60
== END | disposition home or self-care (01) ==
LOC: CHF HDHVI 11:01
PROVIDERS: ATTEND Internal Medicine Cardiovascular Disease
DX: C95.90 Leukemia, unspecified not having achieved remission (principal); J44.9 Chronic obstructive pulmonary disease, unspecified; I11.0 Hypertensive heart disease with heart failure; I50.9 Heart failure, unspecified; E78.5 Hyperlipidemia, unspecified
CPT/HCPCS: G0463

== ENCOUNTER → 2017-12-08 | Outpatient (CLI) | payer MEDICARE, BC ==
[~2017-12-08] MED LIST changes: +IOHEXOL 350 MG/ML 100ML IJ ONE
[2017-12-08 09:45] VITALS: BP 113/64
[2017-12-08 10:30] VITALS: BP 129/71
== END | disposition home or self-care (01) ==
LOC: Rad HDHVI 09:39
PROVIDERS: ATTEND Internal Medicine Cardiovascular Disease
DX: C92.10 Chronic myeloid leukemia, BCR/ABL-positive, not having achieved remission (principal); J18.9 Pneumonia, unspecified organism; J43.9 Emphysema, unspecified; I25.10 Atherosclerotic heart disease of native coronary artery without angina pectoris; N13.30 Unspecified hydronephrosis; R91.1 Solitary pulmonary nodule; I11.0 Hypertensive heart disease with heart failure; I50.23 Acute on chronic systolic (congestive) heart failure; E78.5 Hyperlipidemia, unspecified; E78.00 Pure hypercholesterolemia, unspecified; R16.1 Splenomegaly, not elsewhere classified; R04.2 Hemoptysis
CPT/HCPCS: 71260; 82565; G0463; Q9967

== ENCOUNTER → 2018-01-25 | Outpatient (CLI) | payer MEDICARE, BC ==
[~2018-01-25] MED LIST changes: -IOHEXOL 350 MG/ML 100ML IJ ONE
== END | disposition home or self-care (01) ==
LOC: Rad HDHVI 08:46
PROVIDERS: ATTEND Internal Medicine Cardiovascular Disease
DX: I70.0 Atherosclerosis of aorta (principal); R16.1 Splenomegaly, not elsewhere classified; J18.9 Pneumonia, unspecified organism; N13.30 Unspecified hydronephrosis
CPT/HCPCS: 71250

== ENCOUNTER → 2018-02-28 | Outpatient (CLI) | payer MEDICARE, BC ==
[~2018-02-28] VITALS: Ht 30.5 cm; Wt 0.5 kg
[~2018-02-28] MED LIST changes: -CARI-316 PO; +CARI350T22 PO; +CYANOCOBALAMIN (B-12) 1000 MCG/1 ML VIAL IM ONE; +CYANOCOBALAMIN (B-12) 1000 MCG/1 ML VIAL ONE; +MVI in SODIUM CHLORIDE 0.9% 1,010 ML ONE; +MVI in SODIUM CHLORIDE 0.9% 500 ML IVB ONE; +ONDANSETRON HCL 4 MG/2 ML VIAL IV ONE; +ONDANSETRON HCL 4 MG/2 ML VIAL ONE
[2018-02-28 16:57] LABS: Basophils # (auto) 0.1 uL; Basophils % (auto) 0.7 % (0.0-2.0); Eosinophils # (auto) 0.1 uL; Eosinophils % (auto) 1.3 % (0.0-7.0); Hematocrit 41.9 % (41.0-53.0); Hemoglobin 14.5 g/dL (13.5-17.5); Lymphocytes # (auto) 1.3 uL; Lymphocytes % (auto) 15.4 % (10.0-50.0); Mean Corpuscular Hemoglobin 32.6 pg (28.0-32.0); Mean Corpuscular Hgb Conc. 34.7 g/dL (32.0-36.0); Mean Corpuscular Volume 94.1 fL (80.0-100.0); Monocytes # (auto) 0.7 uL; Monocytes % (auto) 8.5 % (0.0-12.0); Neutrophils # (auto) 6.2 uL; Neutrophils % (auto) 74.1 % (37.0-80.0); Nucleated Red Blood Cells % 0.2 %; Platelet Count (auto) 99 10^3/uL (140-450); Red Blood Cells 4.46 10^6/uL (4.5-5.90); Red Cell Distribution Width 15.2 % (11.8-14.3); White Blood Cell 8.3 10^3/uL (4.4-10.8)
[2018-02-28 17:13] LABS: Albumin 4.1 g/dL (3.4-5.0); BUN/Creatinine Ratio 17.1; Bilirubin, Total 0.6 mg/dL (0.2-1.0); Calcium 8.6 mg/dL (8.5-10.1); Potassium 4.1 mmol/L (3.5-5.1); Total Protein 7.2 g/dL (6.4-8.2)
[2018-03-01 13:45] VITALS: BP 135/76
== END | disposition home or self-care (01) ==
LOC: CHF HDHVI 14:03
PROVIDERS: ATTEND Internal Medicine Cardiovascular Disease
DX: C92.10 Chronic myeloid leukemia, BCR/ABL-positive, not having achieved remission (principal); D64.9 Anemia, unspecified; I10 Essential (primary) hypertension
CPT/HCPCS: 36415; 80053; 81206; 81207; 83615; 85025; 93005; 96365; 96366; 96372; G0463; J2405; J3411; J3420; J3475

== ENCOUNTER → 2018-05-16 | Outpatient (CLI) | payer MEDICARE, BC ==
[~2018-05-16] MED LIST changes: -CYANOCOBALAMIN (B-12) 1000 MCG/1 ML VIAL IM ONE; -CYANOCOBALAMIN (B-12) 1000 MCG/1 ML VIAL ONE; -MVI in SODIUM CHLORIDE 0.9% 1,010 ML ONE; -MVI in SODIUM CHLORIDE 0.9% 500 ML IVB ONE; -ONDANSETRON HCL 4 MG/2 ML VIAL IV ONE; -ONDANSETRON HCL 4 MG/2 ML VIAL ONE
== END | disposition home or self-care (01) ==
LOC: LAB 09:16
PROVIDERS: ATTEND Internal Medicine Cardiovascular Disease
DX: C61 Malignant neoplasm of prostate (principal)
CPT/HCPCS: 84153

== ENCOUNTER → 2018-11-28 | Outpatient (CLI) | payer MEDICARE, BC ==
[2018-11-28 16:33] LABS: Albumin 4.2 g/dL (3.4-5.0)
[2018-11-28 16:36] LABS: Bilirubin, Direct 0.2 mg/dL (0-0.2); Bilirubin, Total 0.8 mg/dL (0.2-1.0); Total Protein 7.6 g/dL (6.4-8.2)
[2018-12-01 09:07] LABS: Hepatitis B Surface Antibody Negative
[2018-12-01 09:43] LABS: Hepatitis A Total Antibody Positive
[2018-12-01 10:14] LABS: Hepatitis B Core Total AB Negative; Hepatitis B Surface Antigen Negative (Negative); Hepatitis C Antibody Negative (Negative)
== END | disposition home or self-care (01) ==
LOC: LAB 12:26
PROVIDERS: ATTEND Internal Medicine Cardiovascular Disease
DX: K74.1 Hepatic sclerosis (principal); R94.4 Abnormal results of kidney function studies; B20 Human immunodeficiency virus [HIV] disease; Z11.59 Encounter for screening for other viral diseases
CPT/HCPCS: 36415; 80076; 82565; 86704; 86706; 86708; 86803; 87340

== ENCOUNTER → 2018-11-29 | Outpatient (CLI) | payer MEDICARE, BC ==
[~2018-11-29] MED LIST changes: +IOHEXOL 350 MG/ML 100ML IJ ONE; +READI-CAT 2 (BARIUM SULF)(VANILLA SMOOTHIE) 450ML ONE
[2018-11-29 09:57] VITALS: BP 135/71
[2018-11-29 11:03] VITALS: BP 144/76
== END | disposition home or self-care (01) ==
LOC: Rad HDHVI 09:49
PROVIDERS: ATTEND Internal Medicine Cardiovascular Disease
DX: K31.4 Gastric diverticulum (principal); I70.0 Atherosclerosis of aorta; J98.4 Other disorders of lung
CPT/HCPCS: 74177; G0463; Q9967

== ENCOUNTER → 2019-01-16 | Outpatient (CLI) | payer MEDICARE, BC ==
[~2019-01-16] MED LIST changes: -HYDR-4683 PO; +HYDR-4833 PO; -IOHEXOL 350 MG/ML 100ML IJ ONE; +LEVOFLOXACIN 500MG 100 ML IV ONE; +MAGNESIUM CITRATE SOLUTION 300 ML BTL ONE; +MAGNESIUM CITRATE SOLUTION 300 ML BTL PO ONE; +ONDANSETRON HCL 4 MG/2 ML VIAL IV ONE; +ONDANSETRON HCL 4 MG/2 ML VIAL ONE; -READI-CAT 2 (BARIUM SULF)(VANILLA SMOOTHIE) 450ML ONE; +SODIUM CHLORIDE 0.9% 1,000 ML IV ONE
[2019-01-16 14:00] VITALS: BP 138/69
[2019-01-16 15:24] LABS: Albumin 3.9 g/dL (3.4-5.0); Calcium 8.6 mg/dL (8.5-10.1); Magnesium 2.8 mg/dL (1.6-2.6)
[2019-01-16 15:48] LABS: BUN/Creatinine Ratio 7.1; Bilirubin, Total 0.9 mg/dL (0.2-1.0); Potassium 3.7 mmol/L (3.5-5.1); Total Protein 7.8 g/dL (6.4-8.2)
[2019-01-16 15:55] LABS: Basophils # (auto) 0 uL; Basophils % (auto) 0.5 % (0.0-2.0); Eosinophils # (auto) 0.1 uL; Eosinophils % (auto) 0.9 % (0.0-7.0); Hematocrit 40.3 % (41.0-53.0); Hemoglobin 13.5 g/dL (13.5-17.5); Lymphocytes # (auto) 0.9 uL; Lymphocytes % (auto) 11.3 % (10.0-50.0); Mean Corpuscular Hemoglobin 30.8 pg (28.0-32.0); Mean Corpuscular Hgb Conc. 33.6 g/dL (32.0-36.0); Mean Corpuscular Volume 91.6 fL (80.0-100.0); Monocytes # (auto) 0.9 uL; Monocytes % (auto) 11.3 % (0.0-12.0); Neutrophils # (auto) 6.4 uL; Platelet Count (auto) 102 10^3/uL (140-450); Red Cell Distribution Width 14.7 % (11.8-14.3); White Blood Cell 8.4 10^3/uL (4.4-10.8)
--- NOTE | 2019-01-16 16:30 | NUR ---
PRESCRIPTION CALLED INTO PT [facility]ARM[facility]Y FOR LEVAQUIN 500MG PO DAILY X 7 DAYS.
[2019-01-16 17:02] VITALS: BP 133/70
--- NOTE | 2019-01-16 17:02 | NUR ---
[facility] Discharge Instructions See e-MAR for any mediations given with this visit. Patient education given on disease process. Patient verbalized understanding. Previous labs reviewed. Patient discharged in stable condition with after care instructions and follow up appointment. NOTE NS [id number] ADMIN BY RAMU AGGARWAL. LEVAQUIN [id number] ADMIN BY RAMU AGGARWAL. ZOFRAN IVP ADMIN BY RAMU AGGARWAL. MAG CITRATE ADMIN BY RAMU AGGARWAL.
== END | disposition home or self-care (01) ==
LOC: CHF HDHVI 14:01
PROVIDERS: ATTEND Internal Medicine Cardiovascular Disease
DX: I11.0 Hypertensive heart disease with heart failure (principal); I50.9 Heart failure, unspecified; R11.0 Nausea; D64.9 Anemia, unspecified; E83.40 Disorders of magnesium metabolism, unspecified; R53.83 Other fatigue; R50.9 Fever, unspecified
CPT/HCPCS: 36415; 80053; 83735; 83880; 85025; 96361; 96365; 96375; G0463; J1956; J2405; 96367

== ENCOUNTER → 2019-01-18 | Outpatient (CLI) | payer MEDICARE, BC ==
[~2019-01-18] MED LIST changes: -LEVOFLOXACIN 500MG 100 ML IV ONE; -MAGNESIUM CITRATE SOLUTION 300 ML BTL ONE; -MAGNESIUM CITRATE SOLUTION 300 ML BTL PO ONE; -ONDANSETRON HCL 4 MG/2 ML VIAL IV ONE; -ONDANSETRON HCL 4 MG/2 ML VIAL ONE; -SODIUM CHLORIDE 0.9% 1,000 ML IV ONE
[2019-01-18 09:53] VITALS: BP 129/66
--- NOTE | 2019-01-18 09:53 | NUR ---
[facility] PT ARRIVED AT THE [facility] TO FOLLOW UP FROM LAST WEDNESDAY, PT FEELS BETTER 0 DISTRESS VSS
[2019-01-18 10:55] LABS: Basophils # (auto) 0 uL; Basophils % (auto) 0.5 % (0.0-2.0); Eosinophils # (auto) 0.2 uL; Eosinophils % (auto) 2.7 % (0.0-7.0); Hematocrit 38.9 % (41.0-53.0); Lymphocytes # (auto) 0.9 uL; Lymphocytes % (auto) 15.6 % (10.0-50.0); Mean Corpuscular Hemoglobin 30.5 pg (28.0-32.0); Mean Corpuscular Hgb Conc. 33.3 g/dL (32.0-36.0); Mean Corpuscular Volume 91.6 fL (80.0-100.0); Monocytes # (auto) 0.6 uL; Neutrophils # (auto) 4.3 uL; Neutrophils % (auto) 71.2 % (37.0-80.0); Nucleated Red Blood Cells % 0.1 %; Platelet Count (auto) 106 10^3/uL (140-450); Red Blood Cells 4.25 10^6/uL (4.5-5.90); Red Cell Distribution Width 14.9 % (11.8-14.3)
[2019-01-18 11:01] LABS: Potassium 3.8 mmol/L (3.5-5.1)
--- NOTE | 2019-01-18 11:21 | NUR ---
Discharge Instructions See e-MAR for any mediations given with this visit. Patient education given on disease process. Patient verbalized understanding. Previous labs reviewed. Patient discharged in stable condition with after care instructions and follow up appointment. PT LABS DRAWN AND SENT STAT . PT VERBALIZES CONSTIPATION IS IMPROVED, ABX HAVE MADE PT FEEL BETTER LABS WNL. VITAMIN D SPRAY SAMPLE PROVIDED TO THE PATIENT
[2019-01-18 11:26] VITALS: BP 136/74
== END | disposition home or self-care (01) ==
LOC: CHF HDHVI 10:05
PROVIDERS: ATTEND Internal Medicine Cardiovascular Disease
DX: K90.9 Intestinal malabsorption, unspecified (principal); E87.5 Hyperkalemia; R94.4 Abnormal results of kidney function studies; C95.91 Leukemia, unspecified, in remission
CPT/HCPCS: 36415; 82306; 82565; 84132; 84520; 85025; G0463

== ENCOUNTER → 2019-08-08 | Outpatient (CLI) | payer MEDICARE, BC ==
[~2019-08-08] MED LIST changes: -METO25TA62 PO; +METO25TA93 PO
== END | disposition home or self-care (01) ==
LOC: Rad HDHVI 08:02
PROVIDERS: ATTEND Internal Medicine Cardiovascular Disease
DX: R00.2 Palpitations (principal); I11.0 Hypertensive heart disease with heart failure; I50.33 Acute on chronic diastolic (congestive) heart failure
CPT/HCPCS: 93306

== ENCOUNTER → 2019-08-14 | Outpatient (CLI) | payer MEDICARE, BC ==
[~2019-08-14] VITALS: Ht 180.3 cm; Wt 99.8 kg
[~2019-08-14] MED LIST changes: +ADENOSINE 84 MG in GIVE UN-DILUTED 0 ML IV ONE; +ADENOSINE 90 MG/30 ML INJ IV ONE
[2019-08-14 12:02] LABS: Basophils # (auto) 0 10 ^3/uL (0-0.2); Basophils % (auto) 0.5 % (0.0-2.0); Eosinophils # (auto) 0.2 10 ^3/uL (0-0.8); Eosinophils % (auto) 2.1 % (0.0-7.0); Hemoglobin 14.4 g/dL (13.5-17.5); Lymphocytes # (auto) 1.3 10 ^3/uL (0.4-5.4); Mean Corpuscular Hemoglobin 30.1 pg (28.0-32.0); Mean Corpuscular Hgb Conc. 33.4 g/dL (32.0-36.0); Monocytes # (auto) 0.8 10 ^3/uL (0-1.3); Monocytes % (auto) 9.6 % (0.0-12.0); Neutrophils # (auto) 5.6 10 ^3/uL (1.6-8.6); Neutrophils % (auto) 70.8 % (37.0-80.0); Nucleated Red Blood Cells % 0.1 %; Platelet Count (auto) 124 10^3/uL (140-450); Red Blood Cells 4.78 10^6/uL (4.5-5.90); Red Cell Distribution Width 15.6 % (11.8-14.3); White Blood Cell 7.9 10^3/uL (4.4-10.8)
[2019-08-14 12:21] LABS: Potassium 3.6 mmol/L (3.5-5.1)
[2019-08-14 12:32] LABS: Free T4 (Free Thyroxine) 0.97 ng/dL (0.89-1.76); Prostate Specific Antigen 0.42 ng/mL (0.0-4.0)
[2019-08-14 12:33] LABS: BUN/Creatinine Ratio 12.7; Bilirubin, Total 0.7 mg/dL (0.2-1.0); Calcium 8.8 mg/dL (8.5-10.1); Total Protein 7.8 g/dL (6.4-8.2)
[2019-08-14 12:43] LABS: Urine Blood Negative /uL (Negative); Urine Specific Gravity 1.006 (1.001-1.035)
== END | disposition home or self-care (01) ==
LOC: Rad HDHVI 08:11
PROVIDERS: ATTEND Internal Medicine Cardiovascular Disease
DX: I48.91 Unspecified atrial fibrillation (principal); I10 Essential (primary) hypertension; R07.9 Chest pain, unspecified; E03.9 Hypothyroidism, unspecified; K90.9 Intestinal malabsorption, unspecified; C61 Malignant neoplasm of prostate; E29.1 Testicular hypofunction; N39.0 Urinary tract infection, site not specified; D51.9 Vitamin B12 deficiency anemia, unspecified; Z79.899 Other long term (current) drug therapy; Z95.0 Presence of cardiac pacemaker
CPT/HCPCS: 36415; 78452; 80053; 80061; 81003; 82306; 82607; 83036; 84153; 84403; 84439; 84443; 85025; 93005; 96374; 96375; A9500; J0153

== ENCOUNTER 2020-05-12 11:54 | Inpatient (IN) | payer MEDICARE, BC ==
[~2020-05-12] VITALS: Ht 180.3 cm; Wt 91.9 kg
[2020-05-12] MEDS: GABAPENTIN 300 MG CAP PO SCH (00:45)
[2020-05-12] MEDS: AMIODARONE HCL 200 MG TAB PO SCH (00:45)
[2020-05-12] MEDS: METOPROLOL SUCCINATE XL 50 MG TAB PO SCH (00:45)
[~2020-05-12 11:54] MED LIST changes: -ADENOSINE 84 MG in GIVE UN-DILUTED 0 ML IV ONE; -ADENOSINE 90 MG/30 ML INJ IV ONE
[2020-05-12] MEDS ORDERED: ACETAMINOPHEN 500 MG TAB PO ONE ×3 (14:15→22:45)
[2020-05-12 15:40] LABS: Basophils # (auto) 0 10 ^3/uL (0-0.2); Basophils % (auto) 0.3 % (0.0-2.0); Eosinophils # (auto) 0 10 ^3/uL (0-0.8); Hematocrit 40.6 % (41.0-53.0); Hemoglobin 13.7 g/dL (13.5-17.5); Lymphocytes # (auto) 0.4 10 ^3/uL (0.4-5.4); Lymphocytes % (auto) 5.6 % (10.0-50.0); Mean Corpuscular Hemoglobin 30.3 pg (28.0-32.0); Mean Corpuscular Hgb Conc. 33.9 g/dL (32.0-36.0); Mean Corpuscular Volume 89.4 fL (80.0-100.0); Monocytes # (auto) 0.7 10 ^3/uL (0-1.3); Monocytes % (auto) 10.5 % (0.0-12.0); Neutrophils # (auto) 5.6 10 ^3/uL (1.6-8.6); Neutrophils % (auto) 83.6 % (37.0-80.0); Nucleated Red Blood Cells % 0.1 %; Platelet Count (auto) 66 10^3/uL (140-450); Red Blood Cells 4.54 10^6/uL (4.5-5.90); Red Cell Distribution Width 15.4 % (11.8-14.3); White Blood Cell 6.7 10^3/uL (4.4-10.8)
[2020-05-12 15:58] LABS: Albumin 3.7 g/dL (3.4-5.0); Anion Gap 10 (5-15); Blood Urea Nitrogen 18 mg/dL (7-18); Calcium 7.8 mg/dL (8.5-10.1); Carbon Dioxide 23 mmol/L (21-32); Chloride 96 mmol/L (98-107); Potassium 3.4 mmol/L (3.5-5.1); Sodium 129 mmol/L (136-145)
[2020-05-12 16:10] LABS: Alanine Aminotransferase 77 U/L (16-61); Alkaline Phosphatase 88 U/L (45-117); Aspartate Aminotransferase 92 U/L (15-37); BUN/Creatinine Ratio 12.5; Bilirubin, Total 1.1 mg/dL (0.2-1.0); GFR African American 61 mL/min; GFR Non-African American 51 mL/min; Glucose 142 mg/dL (74-106); Lactate Dehydrogenase 466 U/L (87-241); Total Protein 7.5 g/dL (6.4-8.2)
[2020-05-12] MEDS ORDERED: MORPHINE SULF INJ 2 MG/ML SYRINGE 1ML IV PRN (17:00)
[2020-05-12] MEDS ORDERED: POTASSIUM CHL 20 Meq TABLET PO ONE (17:00)
[2020-05-12] MEDS ORDERED: NITROGLYCERIN 0.4 MG SL TAB SL PRN (17:00)
[2020-05-12] MEDS ORDERED: ONDANSETRON HCL 4 MG/2 ML VIAL IV PRN (17:00)
[2020-05-12] MEDS ORDERED: FUROSEMIDE 40 MG/4 ML VIAL IV ONE (17:00)
[2020-05-12 18:32] LABS: INR 1.12 (0.9-1.15); Partial Thromboplastin Time 38.6 sec (23.0-31.2)
[2020-05-12] MEDS ORDERED: NILOTINIB 150 MG PO SCH (22:00)
[2020-05-12] MEDS: ALPRAZolam 0.25 MG TAB PO SCH (22:00)
[2020-05-13] MEDS: NILOTINIB 150 MG PO SCH ×2 (06:00→18:54)
[2020-05-13] MEDS: ZINC SULFATE 220mg CAP or TAB PO SCH (10:00)
[2020-05-13] MEDS: FAMOTIDINE 20 MG TAB PO SCH (10:00)
[2020-05-13] MEDS: ALPRAZolam 0.25 MG TAB PO SCH ×2 (10:00→22:32)
[2020-05-13] MEDS: ASCORBIC ACID 1,000 MG TAB PO SCH (10:00)
[2020-05-13] MEDS: METOPROLOL SUCCINATE XL 50 MG TAB PO SCH ×2 (10:00→22:30)
[2020-05-13] MEDS: AMIODARONE HCL 200 MG TAB PO SCH ×2 (10:00→22:32)
[2020-05-13] MEDS: CHOLECALCIFEROL (VITD3) 2,000 UNIT CAP PO SCH (10:00)
[2020-05-13] MEDS ORDERED: DexAMETHasone SOD PHOS 10MG/1ML VIAL INJ IV SCH (10:00)
[2020-05-13] MEDS ORDERED: REMDESIVIR PER PHARMACY IV SCH (10:00)
[2020-05-13] MEDS: AZITHROMYCIN 500MG/ 250ML 250 ML IV SCH (10:00)
[2020-05-13] MEDS: GABAPENTIN 300 MG CAP PO SCH ×3 (10:27→22:30)
[2020-05-13] MEDS ORDERED: ACETAMINOPHEN 650 mg PER 20.3 mL UD ONE (10:50)
[2020-05-13] MEDS: HYDROcodone-ACET 10/325MG TAB PO PRN (10:56)
[2020-05-13] MEDS: ACETAMINOPHEN 650 mg PER 20.3 mL UD PO PRN ×2 (11:16→22:38)
[2020-05-13] MEDS ORDERED: POTASSIUM CHL 20 Meq TABLET PO ONE ×2 (11:20→11:30)
[2020-05-13] MEDS ORDERED: REMDESIVIR 200 MG in NS 210ml LOADING DOSE ADULT IV ONE (12:15)
[2020-05-13 12:31] LABS: Basophils # (auto) 0 10 ^3/uL (0-0.2); Basophils % (auto) 0.2 % (0.0-2.0); Eosinophils # (auto) 0 10 ^3/uL (0-0.8); Hematocrit 43.2 % (41.0-53.0); Hemoglobin 14.6 g/dL (13.5-17.5); Lymphocytes # (auto) 0.4 10 ^3/uL (0.4-5.4); Lymphocytes % (auto) 6.6 % (10.0-50.0); Mean Corpuscular Hemoglobin 30.3 pg (28.0-32.0); Mean Corpuscular Hgb Conc. 33.8 g/dL (32.0-36.0); Mean Corpuscular Volume 89.6 fL (80.0-100.0); Monocytes # (auto) 0.6 10 ^3/uL (0-1.3); Monocytes % (auto) 8.6 % (0.0-12.0); Neutrophils # (auto) 5.5 10 ^3/uL (1.6-8.6); Neutrophils % (auto) 84.6 % (37.0-80.0); Nucleated Red Blood Cells % 0.1 %; Platelet Count (auto) 79 10^3/uL (140-450); Red Blood Cells 4.82 10^6/uL (4.5-5.90); Red Cell Distribution Width 15.2 % (11.8-14.3); White Blood Cell 6.5 10^3/uL (4.4-10.8)
[2020-05-13 12:41] LABS: Albumin 3.6 g/dL (3.4-5.0)
[2020-05-13 12:44] LABS: BUN/Creatinine Ratio 11.3; Bilirubin, Total 0.9 mg/dL (0.2-1.0); Total Protein 7.6 g/dL (6.4-8.2)
[2020-05-13 13:02] VITALS: BP 128/72
[2020-05-13 17:00] VITALS: BP 129/80
[2020-05-13] MEDS: POTASSIUM CHL 20MEQ/100ML 100 ML IV SCH ×2 (18:54→23:34)
[2020-05-14] MEDS ORDERED: POTASSIUM CHL 20MEQ/100ML 100 ML IV SCH (02:15)
[2020-05-14] MEDS: POTASSIUM CHL 20MEQ/100ML 100 ML IV SCH (02:15)
[2020-05-14 04:51] LABS: Urine Amorphous Crystal FEW /hpf (None Seen); Urine Bacteria FEW /hpf (None Seen); Urine Blood Negative /uL (Negative); Urine Hyaline Cast FEW /lpf (0 - 2); Urine Specific Gravity 1.019 (1.001-1.035); Urine WBC 1 /hpf (0 - 3)
[2020-05-14 06:00] VITALS: BP 109/73
[2020-05-14] MEDS: GABAPENTIN 300 MG CAP PO SCH ×3 (07:26→22:00)
[2020-05-14] MEDS: NILOTINIB 150 MG PO SCH ×2 (07:27→18:25)
[2020-05-14 08:00] VITALS: BP 122/73
[2020-05-14] MEDS: ACETAMINOPHEN 650 mg PER 20.3 mL UD PO PRN (08:17)
[2020-05-14 08:20] LABS: Potassium 3.6 mmol/L (3.5-5.1)
[2020-05-14 08:28] LABS: Albumin 3.2 g/dL (3.4-5.0); BUN/Creatinine Ratio 15.1; Calcium 7.7 mg/dL (8.5-10.1); Total Protein 6.9 g/dL (6.4-8.2)
[2020-05-14] MEDS ORDERED: REMDESIVIR PER PHARMACY IV SCH ×2 (10:00→11:00)
[2020-05-14] MEDS: AZITHROMYCIN 500MG/ 250ML 250 ML IV SCH (10:26)
[2020-05-14] MEDS: ZINC SULFATE 220mg CAP or TAB PO SCH (10:27)
[2020-05-14] MEDS: AMIODARONE HCL 200 MG TAB PO SCH ×2 (10:28→22:01)
[2020-05-14] MEDS: METOPROLOL SUCCINATE XL 50 MG TAB PO SCH ×2 (10:28→22:00)
[2020-05-14] MEDS: FAMOTIDINE 20 MG TAB PO SCH (10:28)
[2020-05-14] MEDS: ASCORBIC ACID 1,000 MG TAB PO SCH (10:29)
[2020-05-14] MEDS: CHOLECALCIFEROL (VITD3) 2,000 UNIT CAP PO SCH (10:29)
[2020-05-14] MEDS: ALPRAZolam 0.25 MG TAB PO SCH ×2 (10:49→22:00)
[2020-05-14 12:00] VITALS: BP 113/75
[2020-05-14] MEDS: DexAMETHasone SOD PHOS 10MG/1ML VIAL INJ IV SCH (14:14)
[2020-05-14 16:59] VITALS: BP 118/62
[2020-05-14] MEDS: REMDESIVIR 100mg in NS 230ml DAILYx4DAYS (NO VENT) IV SCH (17:22)
[2020-05-14 22:00] VITALS: BP 116/74
[2020-05-14] MEDS: CARISOPRODOL 350 MG TAB PO PRN (22:01)
[2020-05-14] MEDS: HYDROcodone-ACET 10/325MG TAB PO PRN (22:02)
[2020-05-14] MEDS: guaiFENesin-DM 100/10mg/5ml SYR PO PRN (22:08)
[2020-05-15 05:00] VITALS: BP 120/71
[2020-05-15] MEDS: GABAPENTIN 300 MG CAP PO SCH ×3 (06:16→23:08)
[2020-05-15] MEDS: NILOTINIB 150 MG PO SCH ×2 (06:21→18:53)
[2020-05-15 07:33] LABS: Albumin 3.4 g/dL (3.4-5.0); Calcium 8.3 mg/dL (8.5-10.1)
[2020-05-15 07:36] LABS: BUN/Creatinine Ratio 20.6; Bilirubin, Total 0.9 mg/dL (0.2-1.0); Total Protein 7.3 g/dL (6.4-8.2)
[2020-05-15 09:00] VITALS: BP 118/69
[2020-05-15] MEDS: FAMOTIDINE 20 MG TAB PO SCH (10:00)
[2020-05-15] MEDS: DexAMETHasone SOD PHOS 10MG/1ML VIAL INJ IV SCH (10:22)
[2020-05-15] MEDS: AMIODARONE HCL 200 MG TAB PO SCH ×2 (10:22→23:08)
[2020-05-15] MEDS: ZINC SULFATE 220mg CAP or TAB PO SCH (10:22)
[2020-05-15] MEDS: AZITHROMYCIN 500MG/ 250ML 250 ML IV SCH (10:22)
[2020-05-15] MEDS: ASCORBIC ACID 1,000 MG TAB PO SCH (10:23)
[2020-05-15] MEDS: METOPROLOL SUCCINATE XL 50 MG TAB PO SCH ×2 (10:23→23:09)
[2020-05-15] MEDS: ALPRAZolam 0.25 MG TAB PO SCH ×2 (10:24→23:09)
[2020-05-15] MEDS: CHOLECALCIFEROL (VITD3) 2,000 UNIT CAP PO SCH (10:24)
[2020-05-15 13:00] VITALS: BP 104/64
[2020-05-15] MEDS: HYDROcodone-ACET 10/325MG TAB PO PRN (14:31)
[2020-05-15 17:00] VITALS: BP 114/77
[2020-05-15] MEDS: REMDESIVIR 100mg in NS 230ml DAILYx4DAYS (NO VENT) IV SCH (17:45)
[2020-05-15] MEDS: ACETAMINOPHEN 650 mg PER 20.3 mL UD PO PRN (20:41)
[2020-05-16 05:00] VITALS: BP 124/73
[2020-05-16] MEDS: NILOTINIB 150 MG PO SCH ×2 (07:38→18:00)
[2020-05-16] MEDS: GABAPENTIN 300 MG CAP PO SCH ×3 (07:38→21:39)
[2020-05-16 07:48] LABS: Calcium 8.1 mg/dL (8.5-10.1); Potassium 3.6 mmol/L (3.5-5.1)
[2020-05-16 07:53] LABS: Albumin 3.1 g/dL (3.4-5.0); BUN/Creatinine Ratio 22.1; Bilirubin, Total 0.8 mg/dL (0.2-1.0); Total Protein 6.7 g/dL (6.4-8.2)
[2020-05-16 08:30] VITALS: BP 124/70
[2020-05-16 09:00] VITALS: BP 124/70
[2020-05-16] MEDS: AMIODARONE HCL 200 MG TAB PO SCH ×2 (09:27→21:39)
[2020-05-16] MEDS: DexAMETHasone SOD PHOS 10MG/1ML VIAL INJ IV SCH (09:27)
[2020-05-16] MEDS: ZINC SULFATE 220mg CAP or TAB PO SCH (09:27)
[2020-05-16] MEDS: FAMOTIDINE 20 MG TAB PO SCH (09:27)
[2020-05-16] MEDS: METOPROLOL SUCCINATE XL 50 MG TAB PO SCH ×2 (09:27→21:40)
[2020-05-16] MEDS: AZITHROMYCIN 500MG/ 250ML 250 ML IV SCH (09:27)
[2020-05-16] MEDS: ALPRAZolam 0.25 MG TAB PO SCH ×2 (09:28→21:40)
[2020-05-16] MEDS: CHOLECALCIFEROL (VITD3) 2,000 UNIT CAP PO SCH (09:28)
[2020-05-16] MEDS: ASCORBIC ACID 1,000 MG TAB PO SCH (09:28)
[2020-05-16] MEDS: HYDROcodone-ACET 10/325MG TAB PO PRN ×2 (09:40→21:50)
[2020-05-16 13:00] VITALS: BP 117/78
[2020-05-16] MEDS: ACETAMINOPHEN 650 mg PER 20.3 mL UD PO PRN (14:38)
[2020-05-16] MEDS: CARISOPRODOL 350 MG TAB PO PRN (14:38)
[2020-05-16] MEDS: REMDESIVIR 100mg in NS 230ml DAILYx4DAYS (NO VENT) IV SCH (16:53)
[2020-05-16 16:58] VITALS: BP 137/74
[2020-05-16 21:50] VITALS: BP 151/77
[2020-05-17 05:00] VITALS: BP 116/72
[2020-05-17] MEDS: NILOTINIB 150 MG PO SCH ×2 (06:28→18:44)
[2020-05-17] MEDS: GABAPENTIN 300 MG CAP PO SCH ×3 (06:29→21:53)
[2020-05-17 07:50] VITALS: BP 129/72
[2020-05-17 08:29] LABS: Calcium 7.9 mg/dL (8.5-10.1); Potassium 3.9 mmol/L (3.5-5.1)
[2020-05-17 08:33] LABS: BUN/Creatinine Ratio 20.8; Bilirubin, Total 0.9 mg/dL (0.2-1.0); Total Protein 6.4 g/dL (6.4-8.2)
[2020-05-17 09:08] VITALS: BP 129/72
[2020-05-17] MEDS: ZINC SULFATE 220mg CAP or TAB PO SCH (10:00)
[2020-05-17] MEDS: DexAMETHasone SOD PHOS 10MG/1ML VIAL INJ IV SCH (10:00)
[2020-05-17] MEDS: AZITHROMYCIN 500MG/ 250ML 250 ML IV SCH (10:00)
[2020-05-17] MEDS: ASCORBIC ACID 1,000 MG TAB PO SCH (10:00)
[2020-05-17] MEDS ORDERED: MAGNESIUM CITRATE SOLUTION 300 ML BTL PO ONE (10:00)
[2020-05-17] MEDS: FAMOTIDINE 20 MG TAB PO SCH (10:00)
[2020-05-17] MEDS: ALPRAZolam 0.25 MG TAB PO SCH ×2 (10:00→21:53)
[2020-05-17] MEDS: METOPROLOL SUCCINATE XL 50 MG TAB PO SCH ×2 (10:00→21:53)
[2020-05-17] MEDS: AMIODARONE HCL 200 MG TAB PO SCH ×2 (10:00→21:52)
[2020-05-17] MEDS: CHOLECALCIFEROL (VITD3) 2,000 UNIT CAP PO SCH (10:00)
[2020-05-17 13:00] VITALS: BP 130/90
[2020-05-17] MEDS ORDERED: LIDOCAINE 5% TOPICAL PATCH TOP ONE (13:45)
[2020-05-17 17:00] VITALS: BP 152/71
[2020-05-17] MEDS: REMDESIVIR 100mg in NS 230ml DAILYx4DAYS (NO VENT) IV SCH (17:17)
[2020-05-17] MEDS: guaiFENesin-DM 100/10mg/5ml SYR PO PRN (18:44)
[2020-05-17] MEDS: HYDROcodone-ACET 10/325MG TAB PO PRN (21:54)
[2020-05-17 22:00] VITALS: BP 126/77
[2020-05-18 05:00] VITALS: BP 119/67
[2020-05-18] MEDS: NILOTINIB 150 MG PO SCH ×3 (06:05→19:03)
[2020-05-18] MEDS: GABAPENTIN 300 MG CAP PO SCH ×3 (06:05→22:15)
[2020-05-18 08:32] VITALS: BP 105/74
[2020-05-18] MEDS: FAMOTIDINE 20 MG TAB PO SCH (10:00)
[2020-05-18] MEDS: DexAMETHasone SOD PHOS 10MG/1ML VIAL INJ IV SCH (10:07)
[2020-05-18] MEDS: AMIODARONE HCL 200 MG TAB PO SCH ×2 (10:08→22:15)
[2020-05-18] MEDS: ZINC SULFATE 220mg CAP or TAB PO SCH (10:08)
[2020-05-18] MEDS: AZITHROMYCIN 500MG/ 250ML 250 ML IV SCH (10:08)
[2020-05-18] MEDS: ASCORBIC ACID 1,000 MG TAB PO SCH (10:09)
[2020-05-18] MEDS: METOPROLOL SUCCINATE XL 50 MG TAB PO SCH ×2 (10:09→22:16)
[2020-05-18] MEDS: ALPRAZolam 0.25 MG TAB PO SCH ×2 (10:10→22:16)
[2020-05-18] MEDS: LIDOCAINE 5% TOPICAL PATCH TOP SCH (10:10)
[2020-05-18] MEDS: CHOLECALCIFEROL (VITD3) 2,000 UNIT CAP PO SCH (10:10)
[2020-05-18 12:22] VITALS: BP 120/91
[2020-05-18 16:50] VITALS: BP 136/78
[2020-05-18] MEDS: HYDROcodone-ACET 10/325MG TAB PO PRN (18:00)
[2020-05-18] MEDS ORDERED: NILO150C PO (18:49)
[2020-05-18 22:00] VITALS: BP 122/79
[2020-05-19 05:00] VITALS: BP 144/72
[2020-05-19] MEDS: NILOTINIB 150 MG PO SCH ×2 (05:53→17:59)
[2020-05-19] MEDS: GABAPENTIN 300 MG CAP PO SCH ×3 (05:53→21:32)
[2020-05-19 09:00] VITALS: BP 120/73
[2020-05-19] MEDS: DexAMETHasone SOD PHOS 10MG/1ML VIAL INJ IV SCH (10:00)
[2020-05-19] MEDS: FAMOTIDINE 20 MG TAB PO SCH (10:00)
[2020-05-19] MEDS ORDERED: FUROSEMIDE 40 MG/4 ML VIAL IV ONE (10:45)
[2020-05-19] MEDS: AZITHROMYCIN 500MG/ 250ML 250 ML IV SCH (11:09)
[2020-05-19] MEDS: ASCORBIC ACID 1,000 MG TAB PO SCH (11:10)
[2020-05-19] MEDS: ZINC SULFATE 220mg CAP or TAB PO SCH (11:10)
[2020-05-19] MEDS: LIDOCAINE 5% TOPICAL PATCH TOP SCH (11:11)
[2020-05-19] MEDS: AMIODARONE HCL 200 MG TAB PO SCH ×2 (11:11→21:32)
[2020-05-19] MEDS: METOPROLOL SUCCINATE XL 50 MG TAB PO SCH ×2 (11:14→21:32)
[2020-05-19] MEDS: ALPRAZolam 0.25 MG TAB PO SCH ×2 (11:14→21:33)
[2020-05-19] MEDS: CHOLECALCIFEROL (VITD3) 2,000 UNIT CAP PO SCH (11:14)
[2020-05-19 12:16] LABS: Basophils # (auto) 0 10 ^3/uL (0-0.2); Basophils % (auto) 0.1 % (0.0-2.0); Eosinophils # (auto) 0 10 ^3/uL (0-0.8); Eosinophils % (auto) 0.3 % (0.0-7.0); Hematocrit 42.2 % (41.0-53.0); Hemoglobin 13.8 g/dL (13.5-17.5); Lymphocytes # (auto) 0.5 10 ^3/uL (0.4-5.4); Lymphocytes % (auto) 3.7 % (10.0-50.0); Mean Corpuscular Hemoglobin 29.7 pg (28.0-32.0); Mean Corpuscular Hgb Conc. 32.8 g/dL (32.0-36.0); Mean Corpuscular Volume 90.7 fL (80.0-100.0); Monocytes # (auto) 0.6 10 ^3/uL (0-1.3); Monocytes % (auto) 4.9 % (0.0-12.0); Neutrophils # (auto) 11.9 10 ^3/uL (1.6-8.6); Platelet Count (auto) 90 10^3/uL (140-450); Red Blood Cells 4.66 10^6/uL (4.5-5.90); Red Cell Distribution Width 15.9 % (11.8-14.3); White Blood Cell 13.1 10^3/uL (4.4-10.8)
[2020-05-19 12:32] LABS: Albumin 2.9 g/dL (3.4-5.0)
[2020-05-19 12:36] LABS: BUN/Creatinine Ratio 17.6; Bilirubin, Total 1.2 mg/dL (0.2-1.0); Total Protein 6.4 g/dL (6.4-8.2)
[2020-05-19 13:00] VITALS: BP 109/65
[2020-05-19] MEDS: HYDROcodone-ACET 10/325MG TAB PO PRN (14:43)
[2020-05-19 17:00] VITALS: BP 121/71
[2020-05-19] MEDS: ACETAMINOPHEN 650 mg PER 20.3 mL UD PO PRN (21:33)
[2020-05-19 22:00] VITALS: BP 124/66
[2020-05-20] MEDS: ACETAMINOPHEN 650 mg PER 20.3 mL UD PO PRN (04:49)
[2020-05-20 05:00] VITALS: BP 119/78
[2020-05-20] MEDS: NILOTINIB 150 MG PO SCH ×2 (05:58→18:39)
[2020-05-20] MEDS: GABAPENTIN 300 MG CAP PO SCH ×3 (05:58→22:09)
[2020-05-20] MEDS: NYSTATIN (MOUTH-THROAT) 500,000 UNITS/5 ML SUSP MT SCH ×4 (05:58→22:08)
[2020-05-20] MEDS: LIDOCAINE 5% TOPICAL PATCH TOP SCH (08:46)
[2020-05-20] MEDS: HYDROcodone-ACET 10/325MG TAB PO PRN ×2 (08:47→22:23)
[2020-05-20 09:08] VITALS: BP 112/79
[2020-05-20] MEDS: AZITHROMYCIN 500MG/ 250ML 250 ML IV SCH (09:34)
[2020-05-20] MEDS: DexAMETHasone SOD PHOS 10MG/1ML VIAL INJ IV SCH (09:34)
[2020-05-20] MEDS: ZINC SULFATE 220mg CAP or TAB PO SCH (09:35)
[2020-05-20] MEDS: AMIODARONE HCL 200 MG TAB PO SCH ×2 (09:35→22:10)
[2020-05-20] MEDS: FAMOTIDINE 20 MG TAB PO SCH (09:35)
[2020-05-20] MEDS: CHOLECALCIFEROL (VITD3) 2,000 UNIT CAP PO SCH (09:36)
[2020-05-20] MEDS: ASCORBIC ACID 1,000 MG TAB PO SCH (09:36)
[2020-05-20] MEDS: METOPROLOL SUCCINATE XL 50 MG TAB PO SCH ×2 (09:36→22:10)
[2020-05-20] MEDS: ALPRAZolam 0.25 MG TAB PO SCH ×2 (09:36→22:09)
[2020-05-20 13:00] VITALS: BP 122/76
[2020-05-20 17:00] VITALS: BP 138/88
[2020-05-20 22:00] VITALS: BP 129/60
[2020-05-21 05:00] VITALS: BP 101/65
[2020-05-21] MEDS: NYSTATIN (MOUTH-THROAT) 500,000 UNITS/5 ML SUSP MT SCH ×4 (05:29→21:59)
[2020-05-21] MEDS: GABAPENTIN 300 MG CAP PO SCH ×3 (05:29→21:58)
[2020-05-21] MEDS: NILOTINIB 150 MG PO SCH ×2 (05:29→17:51)
[2020-05-21 08:00] VITALS: BP 100/70
[2020-05-21 09:00] VITALS: BP 108/70
[2020-05-21] MEDS: DexAMETHasone SOD PHOS 10MG/1ML VIAL INJ IV SCH (09:39)
[2020-05-21] MEDS: LIDOCAINE 5% TOPICAL PATCH TOP SCH (09:39)
[2020-05-21] MEDS: CHOLECALCIFEROL (VITD3) 2,000 UNIT CAP PO SCH (09:40)
[2020-05-21] MEDS: ZINC SULFATE 220mg CAP or TAB PO SCH (09:40)
[2020-05-21] MEDS: ASCORBIC ACID 1,000 MG TAB PO SCH (09:40)
[2020-05-21] MEDS: AZITHROMYCIN 500MG/ 250ML 250 ML IV SCH (09:40)
[2020-05-21] MEDS: ALPRAZolam 0.25 MG TAB PO SCH ×2 (09:41→21:58)
[2020-05-21] MEDS: HYDROcodone-ACET 10/325MG TAB PO PRN ×2 (09:42→17:02)
[2020-05-21] MEDS: FAMOTIDINE 20 MG TAB PO SCH (09:42)
[2020-05-21] MEDS: AMIODARONE HCL 200 MG TAB PO SCH ×2 (09:43→21:58)
[2020-05-21] MEDS: METOPROLOL SUCCINATE XL 50 MG TAB PO SCH ×2 (10:00→21:59)
[2020-05-21 13:00] VITALS: BP 138/89
[2020-05-21 17:00] VITALS: BP 117/84
[2020-05-21 17:12] LABS: Albumin 2.6 g/dL (3.4-5.0); BUN/Creatinine Ratio 20.4; Calcium 8.5 mg/dL (8.5-10.1); Potassium 4.7 mmol/L (3.5-5.1)
[2020-05-21 17:15] LABS: Bilirubin, Total 1.1 mg/dL (0.2-1.0); Total Protein 7.2 g/dL (6.4-8.2)
[2020-05-21 17:17] LABS: Basophils # (auto) 0 10 ^3/uL (0-0.2); Basophils % (auto) 0.1 % (0.0-2.0); Eosinophils # (auto) 0 10 ^3/uL (0-0.8); Eosinophils % (auto) 0.1 % (0.0-7.0); Hematocrit 42.6 % (41.0-53.0); Hemoglobin 13.9 g/dL (13.5-17.5); Lymphocytes # (auto) 0.5 10 ^3/uL (0.4-5.4); Lymphocytes % (auto) 2.5 % (10.0-50.0); Mean Corpuscular Hemoglobin 29.9 pg (28.0-32.0); Mean Corpuscular Hgb Conc. 32.7 g/dL (32.0-36.0); Mean Corpuscular Volume 91.6 fL (80.0-100.0); Monocytes # (auto) 0.7 10 ^3/uL (0-1.3); Monocytes % (auto) 3.7 % (0.0-12.0); Neutrophils # (auto) 18.9 10 ^3/uL (1.6-8.6); Neutrophils % (auto) 93.6 % (37.0-80.0); Platelet Count (auto) 76 10^3/uL (140-450); Red Blood Cells 4.65 10^6/uL (4.5-5.90); Red Cell Distribution Width 15.9 % (11.8-14.3); White Blood Cell 20.2 10^3/uL (4.4-10.8)
[2020-05-21 20:00] VITALS: BP 126/81
[2020-05-22] MEDS: guaiFENesin-DM 100/10mg/5ml SYR PO PRN (01:30)
[2020-05-22] MEDS: HYDROcodone-ACET 10/325MG TAB PO PRN ×3 (01:30→18:00)
[2020-05-22 05:12] VITALS: BP 109/59
[2020-05-22] MEDS: NILOTINIB 150 MG PO SCH ×3 (05:19→18:00)
[2020-05-22] MEDS: NYSTATIN (MOUTH-THROAT) 500,000 UNITS/5 ML SUSP MT SCH ×4 (05:19→22:28)
[2020-05-22] MEDS: GABAPENTIN 300 MG CAP PO SCH ×3 (05:20→22:29)
[2020-05-22] MEDS: DexAMETHasone SOD PHOS 10MG/1ML VIAL INJ IV SCH (10:27)
[2020-05-22] MEDS: ASCORBIC ACID 1,000 MG TAB PO SCH (10:28)
[2020-05-22] MEDS: LIDOCAINE 5% TOPICAL PATCH TOP SCH (10:28)
[2020-05-22] MEDS: CHOLECALCIFEROL (VITD3) 2,000 UNIT CAP PO SCH (10:28)
[2020-05-22] MEDS: FAMOTIDINE 20 MG TAB PO SCH (10:30)
[2020-05-22] MEDS: ZINC SULFATE 220mg CAP or TAB PO SCH (10:32)
[2020-05-22] MEDS: AMIODARONE HCL 200 MG TAB PO SCH ×2 (10:33→22:29)
[2020-05-22] MEDS: METOPROLOL SUCCINATE XL 50 MG TAB PO SCH ×2 (10:34→22:40)
[2020-05-22] MEDS: ALPRAZolam 0.25 MG TAB PO SCH ×2 (10:35→22:29)
[2020-05-22] MEDS: AZITHROMYCIN 500MG/ 250ML 250 ML IV SCH (11:09)
[2020-05-22 22:00] VITALS: BP 96/61
[2020-05-23 05:00] VITALS: BP 111/61
[2020-05-23] MEDS: NILOTINIB 150 MG PO SCH ×2 (06:51→17:43)
[2020-05-23] MEDS: NYSTATIN (MOUTH-THROAT) 500,000 UNITS/5 ML SUSP MT SCH ×4 (06:51→21:36)
[2020-05-23] MEDS: GABAPENTIN 300 MG CAP PO SCH ×3 (06:52→21:36)
[2020-05-23 09:00] VITALS: BP 113/87
[2020-05-23] MEDS: DexAMETHasone SOD PHOS 10MG/1ML VIAL INJ IV SCH (09:29)
[2020-05-23] MEDS: ASCORBIC ACID 1,000 MG TAB PO SCH (09:29)
[2020-05-23] MEDS: AMIODARONE HCL 200 MG TAB PO SCH ×2 (09:29→21:36)
[2020-05-23] MEDS: ZINC SULFATE 220mg CAP or TAB PO SCH (09:29)
[2020-05-23] MEDS: AZITHROMYCIN 500MG/ 250ML 250 ML IV SCH (09:29)
[2020-05-23] MEDS: ALPRAZolam 0.25 MG TAB PO SCH ×2 (09:30→21:38)
[2020-05-23] MEDS: FAMOTIDINE 20 MG TAB PO SCH (09:30)
[2020-05-23] MEDS: HYDROcodone-ACET 10/325MG TAB PO PRN ×2 (09:30→13:20)
[2020-05-23] MEDS: LIDOCAINE 5% TOPICAL PATCH TOP SCH (09:31)
[2020-05-23] MEDS: CHOLECALCIFEROL (VITD3) 2,000 UNIT CAP PO SCH (09:31)
[2020-05-23] MEDS: METOPROLOL SUCCINATE XL 50 MG TAB PO SCH ×2 (09:31→21:37)
[2020-05-23] MEDS ORDERED: MAGNESIUM CITRATE SOLUTION 300 ML BTL PO ONE (10:00)
[2020-05-23 13:00] VITALS: BP 152/73
[2020-05-23 17:00] VITALS: BP 147/85
[2020-05-23] MEDS ORDERED: FUROSEMIDE 40 MG/4 ML VIAL IV ONE (18:45)
[2020-05-23 21:35] VITALS: BP 122/70
[2020-05-24 05:44] VITALS: BP 117/67
[2020-05-24] MEDS: NILOTINIB 150 MG PO SCH ×2 (06:11→18:21)
[2020-05-24] MEDS: NYSTATIN (MOUTH-THROAT) 500,000 UNITS/5 ML SUSP MT SCH ×4 (06:11→22:26)
[2020-05-24] MEDS: HYDROcodone-ACET 10/325MG TAB PO PRN ×2 (06:12→20:11)
[2020-05-24] MEDS: GABAPENTIN 300 MG CAP PO SCH ×3 (06:12→22:26)
[2020-05-24] MEDS: AZITHROMYCIN 500MG/ 250ML 250 ML IV SCH (11:34)
[2020-05-24] MEDS: DexAMETHasone SOD PHOS 10MG/1ML VIAL INJ IV SCH (11:34)
[2020-05-24] MEDS: AMIODARONE HCL 200 MG TAB PO SCH (11:34)
[2020-05-24] MEDS: ZINC SULFATE 220mg CAP or TAB PO SCH (11:34)
[2020-05-24] MEDS: FAMOTIDINE 20 MG TAB PO SCH (11:35)
[2020-05-24] MEDS: ALPRAZolam 0.25 MG TAB PO SCH ×2 (11:36→22:29)
[2020-05-24] MEDS: METOPROLOL SUCCINATE XL 50 MG TAB PO SCH ×2 (11:36→22:28)
[2020-05-24] MEDS: LIDOCAINE 5% TOPICAL PATCH TOP SCH (11:36)
[2020-05-24] MEDS: ASCORBIC ACID 1,000 MG TAB PO SCH (11:36)
[2020-05-24] MEDS: CHOLECALCIFEROL (VITD3) 2,000 UNIT CAP PO SCH (11:36)
[2020-05-24] MEDS: BUDESONIDE (INHALATION) 0.5 MG/2 ML NEB NEB SCH (20:15)
[2020-05-24] MEDS: LEVALBUTEROL HCL 1.25 MG/3 ML NEB NEB SCH (20:15)
[2020-05-24 22:00] VITALS: BP 113/83
[2020-05-25 05:00] VITALS: BP 114/61
[2020-05-25] MEDS: GABAPENTIN 300 MG CAP PO SCH ×3 (05:52→21:33)
[2020-05-25] MEDS: NYSTATIN (MOUTH-THROAT) 500,000 UNITS/5 ML SUSP MT SCH ×4 (05:52→21:33)
[2020-05-25] MEDS: NILOTINIB 150 MG PO SCH ×2 (05:52→19:02)
[2020-05-25] MEDS: LEVALBUTEROL HCL 1.25 MG/3 ML NEB NEB SCH ×4 (06:00→18:44)
[2020-05-25 09:00] VITALS: BP 115/74
[2020-05-25] MEDS: DexAMETHasone SOD PHOS 10MG/1ML VIAL INJ IV SCH (09:06)
[2020-05-25] MEDS: levoFLOXacin 500MG 100 ML IV SCH (09:06)
[2020-05-25] MEDS: ZINC SULFATE 220mg CAP or TAB PO SCH (09:06)
[2020-05-25] MEDS: AMIODARONE HCL 200 MG TAB PO SCH (09:07)
[2020-05-25] MEDS: ASCORBIC ACID 1,000 MG TAB PO SCH (09:07)
[2020-05-25] MEDS: FAMOTIDINE 20 MG TAB PO SCH (09:07)
[2020-05-25] MEDS: ALPRAZolam 0.25 MG TAB PO SCH ×2 (09:07→21:34)
[2020-05-25] MEDS: CHOLECALCIFEROL (VITD3) 2,000 UNIT CAP PO SCH (09:07)
[2020-05-25] MEDS: LIDOCAINE 5% TOPICAL PATCH TOP SCH (09:08)
[2020-05-25] MEDS: METOPROLOL SUCCINATE XL 50 MG TAB PO SCH ×2 (09:10→21:33)
[2020-05-25] MEDS: BUDESONIDE (INHALATION) 0.5 MG/2 ML NEB NEB SCH ×2 (10:00→18:44)
[2020-05-25 13:00] VITALS: BP 108/62
[2020-05-25] MEDS: HYDROcodone-ACET 10/325MG TAB PO PRN ×2 (14:35→21:42)
[2020-05-25] MEDS ORDERED: FURO20TA3 PO (14:47)
[2020-05-25] MEDS ORDERED: POTASSIUM CHL 20 Meq TABLET PO ONE (15:00)
[2020-05-25] MEDS ORDERED: FUROSEMIDE 40 MG/4 ML VIAL IV ONE (15:00)
[2020-05-25 17:28] VITALS: BP 117/69
[2020-05-25 18:53] LABS: Basophils # (auto) 0 10 ^3/uL (0-0.2); Eosinophils # (auto) 0 10 ^3/uL (0-0.8); Hematocrit 45.4 % (41.0-53.0); Hemoglobin 14.7 g/dL (13.5-17.5); Lymphocytes # (auto) 0.5 10 ^3/uL (0.4-5.4); Lymphocytes % (auto) 2.1 % (10.0-50.0); Mean Corpuscular Hemoglobin 29.4 pg (28.0-32.0); Mean Corpuscular Hgb Conc. 32.3 g/dL (32.0-36.0); Mean Corpuscular Volume 90.8 fL (80.0-100.0); Monocytes # (auto) 1.3 10 ^3/uL (0-1.3); Monocytes % (auto) 5.2 % (0.0-12.0); Neutrophils # (auto) 22.5 10 ^3/uL (1.6-8.6); Neutrophils % (auto) 92.7 % (37.0-80.0); Nucleated Red Blood Cells % 0.1 %; Platelet Count (auto) 67 10^3/uL (140-450); Red Blood Cells 4.99 10^6/uL (4.5-5.90); Red Cell Distribution Width 15.6 % (11.8-14.3); White Blood Cell 24.3 10^3/uL (4.4-10.8)
[2020-05-25 19:21] LABS: Albumin 2.9 g/dL (3.4-5.0); Calcium 8.3 mg/dL (8.5-10.1); Potassium 4.8 mmol/L (3.5-5.1)
[2020-05-25 19:26] LABS: BUN/Creatinine Ratio 31.8; Bilirubin, Total 1.3 mg/dL (0.2-1.0); Total Protein 7.8 g/dL (6.4-8.2)
[2020-05-25 21:57] VITALS: BP 97/49
[2020-05-26 05:00] VITALS: BP 102/55
[2020-05-26] MEDS: NYSTATIN (MOUTH-THROAT) 500,000 UNITS/5 ML SUSP MT SCH ×4 (05:29→21:53)
[2020-05-26] MEDS: GABAPENTIN 300 MG CAP PO SCH ×3 (05:29→21:53)
[2020-05-26] MEDS: NILOTINIB 150 MG PO SCH ×2 (05:29→18:06)
[2020-05-26 09:00] VITALS: BP 101/61
[2020-05-26] MEDS: POTASSIUM CHL 20 Meq TABLET PO SCH (10:00)
[2020-05-26] MEDS: BUDESONIDE (INHALATION) 0.5 MG/2 ML NEB NEB SCH (10:00)
[2020-05-26] MEDS: LEVALBUTEROL HCL 1.25 MG/3 ML NEB NEB SCH ×2 (10:20→13:13)
[2020-05-26] MEDS: DexAMETHasone SOD PHOS 10MG/1ML VIAL INJ IV SCH (10:40)
[2020-05-26] MEDS: levoFLOXacin 500MG 100 ML IV SCH (10:41)
[2020-05-26] MEDS: ZINC SULFATE 220mg CAP or TAB PO SCH (10:41)
[2020-05-26] MEDS: AMIODARONE HCL 200 MG TAB PO SCH (10:42)
[2020-05-26] MEDS: FAMOTIDINE 20 MG TAB PO SCH (10:43)
[2020-05-26] MEDS: METOPROLOL SUCCINATE XL 50 MG TAB PO SCH ×2 (10:44→21:54)
[2020-05-26] MEDS: LIDOCAINE 5% TOPICAL PATCH TOP SCH (10:45)
[2020-05-26] MEDS: ALPRAZolam 0.25 MG TAB PO SCH ×2 (10:45→21:53)
[2020-05-26] MEDS: ASCORBIC ACID 1,000 MG TAB PO SCH (10:45)
[2020-05-26] MEDS: CHOLECALCIFEROL (VITD3) 2,000 UNIT CAP PO SCH (10:45)
[2020-05-26 13:00] VITALS: BP 108/66
[2020-05-26] MEDS: HYDROcodone-ACET 10/325MG TAB PO PRN ×2 (13:17→21:54)
[2020-05-26] MEDS: FUROSEMIDE 40 MG/4 ML VIAL IV SCH (13:18)
[2020-05-26] MEDS ORDERED: IPRATROPIUM BROM 0.5 MG/2.5ML INH SOL NEB PRN (16:15)
[2020-05-26 17:00] VITALS: BP 119/76
[2020-05-26] MEDS: BUDESONIDE (INHALATION) 180 MCG IH IN SCH (21:24)
[2020-05-26] MEDS: IPRATROPIUM BROMIDE HFA AER IN PRN (21:25)
[2020-05-26 22:00] VITALS: BP 111/63
[2020-05-27 05:00] VITALS: BP 101/59
[2020-05-27] MEDS: GABAPENTIN 300 MG CAP PO SCH ×3 (05:53→21:08)
[2020-05-27] MEDS: NILOTINIB 150 MG PO SCH ×2 (05:53→19:16)
[2020-05-27] MEDS: NYSTATIN (MOUTH-THROAT) 500,000 UNITS/5 ML SUSP MT SCH ×4 (05:53→21:07)
[2020-05-27] MEDS: HYDROcodone-ACET 10/325MG TAB PO PRN ×2 (05:54→21:49)
[2020-05-27 09:00] VITALS: BP 92/63
[2020-05-27] MEDS: LIDOCAINE 5% TOPICAL PATCH TOP SCH (09:54)
[2020-05-27] MEDS: ASCORBIC ACID 1,000 MG TAB PO SCH (09:54)
[2020-05-27] MEDS: levoFLOXacin 500MG 100 ML IV SCH (09:54)
[2020-05-27] MEDS: FAMOTIDINE 20 MG TAB PO SCH (09:55)
[2020-05-27] MEDS: POTASSIUM CHL 20 Meq TABLET PO SCH (09:55)
[2020-05-27] MEDS: ZINC SULFATE 220mg CAP or TAB PO SCH (09:55)
[2020-05-27] MEDS: AMIODARONE HCL 200 MG TAB PO SCH (09:55)
[2020-05-27] MEDS: FUROSEMIDE 40 MG/4 ML VIAL IV SCH (09:56)
[2020-05-27] MEDS: DexAMETHasone SOD PHOS 10MG/1ML VIAL INJ IV SCH (09:56)
[2020-05-27] MEDS: CHOLECALCIFEROL (VITD3) 2,000 UNIT CAP PO SCH (09:57)
[2020-05-27] MEDS: ALPRAZolam 0.25 MG TAB PO SCH ×2 (09:57→21:08)
[2020-05-27] MEDS: BUDESONIDE (INHALATION) 180 MCG IH IN SCH ×2 (10:00→22:00)
[2020-05-27] MEDS: METOPROLOL SUCCINATE XL 50 MG TAB PO SCH ×2 (10:00→21:47)
[2020-05-27 13:00] VITALS: BP 107/66
[2020-05-27 17:00] VITALS: BP 132/67
[2020-05-27 19:50] LABS: Albumin 2.5 g/dL (3.4-5.0); Calcium 8.1 mg/dL (8.5-10.1)
[2020-05-27 19:54] LABS: BUN/Creatinine Ratio 37.6; Bilirubin, Total 1.3 mg/dL (0.2-1.0); Total Protein 7.2 g/dL (6.4-8.2)
[2020-05-27 21:02] LABS: Potassium 5.7 mmol/L (3.5-5.1)
[2020-05-27 21:42] LABS: Basophils # (auto) 0 10 ^3/uL (0-0.2); Basophils % (auto) 0.1 % (0.0-2.0); Eosinophils # (auto) 0 10 ^3/uL (0-0.8); Eosinophils % (auto) 0.1 % (0.0-7.0); Hematocrit 39.4 % (41.0-53.0); Hemoglobin 12.7 g/dL (13.5-17.5); Lymphocytes # (auto) 0.5 10 ^3/uL (0.4-5.4); Lymphocytes % (auto) 3.4 % (10.0-50.0); Mean Corpuscular Hemoglobin 29.4 pg (28.0-32.0); Mean Corpuscular Hgb Conc. 32.4 g/dL (32.0-36.0); Monocytes # (auto) 0.7 10 ^3/uL (0-1.3); Monocytes % (auto) 4.5 % (0.0-12.0); Neutrophils % (auto) 91.9 % (37.0-80.0); Platelet Count (auto) 75 10^3/uL (140-450); Red Blood Cells 4.33 10^6/uL (4.5-5.90); Red Cell Distribution Width 15.4 % (11.8-14.3); White Blood Cell 15.2 10^3/uL (4.4-10.8)
[2020-05-27 21:59] VITALS: BP 101/59
[2020-05-27] MEDS ORDERED: SODIUM CHLORIDE 0.9% 250 ML IV ONE (22:00)
[2020-05-27] MEDS: IPRATROPIUM BROMIDE HFA AER IN PRN (23:49)
[2020-05-28 05:00] VITALS: BP 91/58
[2020-05-28] MEDS: HYDROcodone-ACET 10/325MG TAB PO PRN ×3 (05:05→19:27)
[2020-05-28] MEDS: GABAPENTIN 300 MG CAP PO SCH ×3 (05:50→22:04)
[2020-05-28] MEDS: NILOTINIB 150 MG PO SCH ×2 (05:50→17:12)
[2020-05-28] MEDS: NYSTATIN (MOUTH-THROAT) 500,000 UNITS/5 ML SUSP MT SCH ×4 (05:50→22:04)
[2020-05-28 06:00] VITALS: BP 107/65
[2020-05-28 09:00] VITALS: BP 107/55
[2020-05-28] MEDS: BUDESONIDE (INHALATION) 180 MCG IH IN SCH ×2 (10:00→21:44)
[2020-05-28] MEDS: DexAMETHasone SOD PHOS 10MG/1ML VIAL INJ IV SCH (11:03)
[2020-05-28] MEDS: FUROSEMIDE 40 MG/4 ML VIAL IV SCH (11:03)
[2020-05-28] MEDS: AMIODARONE HCL 200 MG TAB PO SCH (11:04)
[2020-05-28] MEDS: ZINC SULFATE 220mg CAP or TAB PO SCH (11:04)
[2020-05-28] MEDS: POTASSIUM CHL 20 Meq TABLET PO SCH (11:04)
[2020-05-28] MEDS: levoFLOXacin 500MG 100 ML IV SCH (11:04)
[2020-05-28] MEDS: METOPROLOL SUCCINATE XL 50 MG TAB PO SCH ×2 (11:05→22:00)
[2020-05-28] MEDS: ASCORBIC ACID 1,000 MG TAB PO SCH (11:05)
[2020-05-28] MEDS: CHOLECALCIFEROL (VITD3) 2,000 UNIT CAP PO SCH (11:05)
[2020-05-28] MEDS: FAMOTIDINE 20 MG TAB PO SCH (11:05)
[2020-05-28] MEDS: LIDOCAINE 5% TOPICAL PATCH TOP SCH (11:06)
[2020-05-28] MEDS: LACTULOSE 20Gm/30ML SOLN PO PRN (11:30)
[2020-05-28 13:00] VITALS: BP 142/93
[2020-05-28] MEDS: IPRATROPIUM BROMIDE HFA AER IN PRN ×2 (13:01→21:44)
[2020-05-28 17:00] VITALS: BP 97/54
[2020-05-28 21:13] LABS: Albumin 2.4 g/dL (3.4-5.0); Calcium 8.1 mg/dL (8.5-10.1); Potassium 5.1 mmol/L (3.5-5.1)
[2020-05-28 21:17] LABS: BUN/Creatinine Ratio 34.9; Bilirubin, Total 1.1 mg/dL (0.2-1.0); Total Protein 6.7 g/dL (6.4-8.2)
[2020-05-28 22:00] VITALS: BP 100/67
[2020-05-29 05:00] VITALS: BP 104/71
[2020-05-29] MEDS: NYSTATIN (MOUTH-THROAT) 500,000 UNITS/5 ML SUSP MT SCH ×4 (05:40→22:04)
[2020-05-29] MEDS: NILOTINIB 150 MG PO SCH ×2 (05:40→18:00)
[2020-05-29] MEDS: GABAPENTIN 300 MG CAP PO SCH ×3 (05:40→22:04)
[2020-05-29] MEDS: IPRATROPIUM BROMIDE HFA AER IN PRN ×2 (07:54→22:06)
[2020-05-29] MEDS: BUDESONIDE (INHALATION) 180 MCG IH IN SCH ×2 (07:54→22:06)
[2020-05-29] MEDS: METOPROLOL SUCCINATE XL 50 MG TAB PO SCH ×2 (10:00→22:00)
[2020-05-29] MEDS: FUROSEMIDE 40 MG/4 ML VIAL IV SCH (10:00)
[2020-05-29] MEDS: DexAMETHasone SOD PHOS 10MG/1ML VIAL INJ IV SCH (10:47)
[2020-05-29] MEDS: ZINC SULFATE 220mg CAP or TAB PO SCH (10:48)
[2020-05-29] MEDS: levoFLOXacin 500MG 100 ML IV SCH (10:48)
[2020-05-29] MEDS: AMIODARONE HCL 200 MG TAB PO SCH (10:49)
[2020-05-29] MEDS: POTASSIUM CHL 20 Meq TABLET PO SCH (10:49)
[2020-05-29] MEDS: FAMOTIDINE 20 MG TAB PO SCH (10:50)
[2020-05-29] MEDS: ASCORBIC ACID 1,000 MG TAB PO SCH (10:51)
[2020-05-29] MEDS: CHOLECALCIFEROL (VITD3) 2,000 UNIT CAP PO SCH (10:51)
[2020-05-29] MEDS: HYDROcodone-ACET 10/325MG TAB PO PRN ×2 (10:54→19:32)
[2020-05-29] MEDS: LIDOCAINE 5% TOPICAL PATCH TOP SCH (11:36)
[2020-05-29 13:00] VITALS: BP 115/68
[2020-05-29 18:58] LABS: Basophils # (auto) 0 10 ^3/uL (0-0.2); Basophils % (auto) 0.1 % (0.0-2.0); Eosinophils # (auto) 0 10 ^3/uL (0-0.8); Hematocrit 41.3 % (41.0-53.0); Hemoglobin 13.8 g/dL (13.5-17.5); Lymphocytes # (auto) 0.3 10 ^3/uL (0.4-5.4); Mean Corpuscular Hemoglobin 30.2 pg (28.0-32.0); Mean Corpuscular Hgb Conc. 33.4 g/dL (32.0-36.0); Mean Corpuscular Volume 90.5 fL (80.0-100.0); Monocytes # (auto) 0.5 10 ^3/uL (0-1.3); Monocytes % (auto) 3.6 % (0.0-12.0); Neutrophils % (auto) 94.3 % (37.0-80.0); Nucleated Red Blood Cells % 0.2 %; Platelet Count (auto) 108 10^3/uL (140-450); Red Blood Cells 4.56 10^6/uL (4.5-5.90); Red Cell Distribution Width 15.2 % (11.8-14.3); White Blood Cell 14.8 10^3/uL (4.4-10.8)
[2020-05-29 19:12] LABS: Calcium 8.1 mg/dL (8.5-10.1); Potassium 5.2 mmol/L (3.5-5.1)
[2020-05-29 21:00] VITALS: BP 90/56
[2020-05-30 01:00] VITALS: BP 92/54
[2020-05-30 05:00] VITALS: BP 112/69
[2020-05-30] MEDS: NYSTATIN (MOUTH-THROAT) 500,000 UNITS/5 ML SUSP MT SCH ×4 (05:35→22:30)
[2020-05-30] MEDS: NILOTINIB 150 MG PO SCH ×2 (05:35→17:43)
[2020-05-30] MEDS: GABAPENTIN 300 MG CAP PO SCH ×3 (05:36→22:30)
[2020-05-30] MEDS: HYDROcodone-ACET 10/325MG TAB PO PRN ×2 (08:00→14:19)
[2020-05-30] MEDS: IPRATROPIUM BROMIDE HFA AER IN PRN ×2 (08:03→22:38)
[2020-05-30] MEDS: BUDESONIDE (INHALATION) 180 MCG IH IN SCH ×2 (08:03→22:37)
[2020-05-30 09:00] VITALS: BP 107/68
[2020-05-30] MEDS: DexAMETHasone SOD PHOS 10MG/1ML VIAL INJ IV SCH (09:41)
[2020-05-30] MEDS: levoFLOXacin 500MG 100 ML IV SCH (09:42)
[2020-05-30] MEDS: FUROSEMIDE 40 MG/4 ML VIAL IV SCH (09:42)
[2020-05-30] MEDS: POTASSIUM CHL 20 Meq TABLET PO SCH (09:42)
[2020-05-30] MEDS: AMIODARONE HCL 200 MG TAB PO SCH (09:42)
[2020-05-30] MEDS: ZINC SULFATE 220mg CAP or TAB PO SCH (09:42)
[2020-05-30] MEDS: FAMOTIDINE 20 MG TAB PO SCH (09:42)
[2020-05-30] MEDS: METOPROLOL SUCCINATE XL 50 MG TAB PO SCH ×2 (09:43→22:00)
[2020-05-30] MEDS: CHOLECALCIFEROL (VITD3) 2,000 UNIT CAP PO SCH (09:43)
[2020-05-30] MEDS: ASCORBIC ACID 1,000 MG TAB PO SCH (09:43)
[2020-05-30] MEDS: LIDOCAINE 5% TOPICAL PATCH TOP SCH (09:43)
[2020-05-30 13:00] VITALS: BP 111/66
[2020-05-30 17:00] VITALS: BP 115/71
[2020-05-30 22:00] VITALS: BP 93/57
[2020-05-30] MEDS: ACETAMINOPHEN 650 mg PER 20.3 mL UD PO PRN (22:33)
[2020-05-31 05:00] VITALS: BP 106/46
[2020-05-31] MEDS: NILOTINIB 150 MG PO SCH ×2 (05:20→18:01)
[2020-05-31] MEDS: NYSTATIN (MOUTH-THROAT) 500,000 UNITS/5 ML SUSP MT SCH ×4 (05:20→21:47)
[2020-05-31] MEDS: GABAPENTIN 300 MG CAP PO SCH ×3 (05:20→21:37)
[2020-05-31] MEDS: ACETAMINOPHEN 650 mg PER 20.3 mL UD PO PRN ×2 (06:40→15:34)
[2020-05-31] MEDS: BUDESONIDE (INHALATION) 180 MCG IH IN SCH ×2 (08:07→21:00)
[2020-05-31] MEDS: IPRATROPIUM BROMIDE HFA AER IN PRN (08:07)
[2020-05-31] MEDS: CARISOPRODOL 350 MG TAB PO PRN ×2 (08:49→22:54)
[2020-05-31] MEDS: AMIODARONE HCL 200 MG TAB PO SCH (08:51)
[2020-05-31] MEDS: ZINC SULFATE 220mg CAP or TAB PO SCH (08:51)
[2020-05-31] MEDS: DexAMETHasone SOD PHOS 10MG/1ML VIAL INJ IV SCH (08:52)
[2020-05-31] MEDS: FUROSEMIDE 40 MG/4 ML VIAL IV SCH (08:52)
[2020-05-31] MEDS: levoFLOXacin 500MG 100 ML IV SCH (08:52)
[2020-05-31] MEDS: POTASSIUM CHL 20 Meq TABLET PO SCH (08:53)
[2020-05-31] MEDS: FAMOTIDINE 20 MG TAB PO SCH (08:53)
[2020-05-31] MEDS: METOPROLOL SUCCINATE XL 50 MG TAB PO SCH ×2 (08:54→21:37)
[2020-05-31] MEDS: CHOLECALCIFEROL (VITD3) 2,000 UNIT CAP PO SCH (08:54)
[2020-05-31] MEDS: LIDOCAINE 5% TOPICAL PATCH TOP SCH (08:54)
[2020-05-31] MEDS: ASCORBIC ACID 1,000 MG TAB PO SCH (08:54)
[2020-05-31 09:00] VITALS: BP 103/54
[2020-05-31 13:00] VITALS: BP 108/60
[2020-05-31] MEDS: LACTULOSE 20Gm/30ML SOLN PO PRN (13:42)
[2020-05-31 17:00] VITALS: BP 113/59
[2020-05-31 19:03] LABS: Basophils # (auto) 0 10 ^3/uL (0-0.2); Basophils % (auto) 0.1 % (0.0-2.0); Eosinophils # (auto) 0 10 ^3/uL (0-0.8); Hematocrit 41.1 % (41.0-53.0); Hemoglobin 13.5 g/dL (13.5-17.5); Lymphocytes # (auto) 0.7 10 ^3/uL (0.4-5.4); Lymphocytes % (auto) 4.2 % (10.0-50.0); Mean Corpuscular Hemoglobin 29.5 pg (28.0-32.0); Mean Corpuscular Hgb Conc. 32.7 g/dL (32.0-36.0); Mean Corpuscular Volume 90.1 fL (80.0-100.0); Monocytes # (auto) 0.6 10 ^3/uL (0-1.3); Monocytes % (auto) 4.1 % (0.0-12.0); Neutrophils # (auto) 14.4 10 ^3/uL (1.6-8.6); Neutrophils % (auto) 91.6 % (37.0-80.0); Platelet Count (auto) 160 10^3/uL (140-450); Red Blood Cells 4.56 10^6/uL (4.5-5.90); Red Cell Distribution Width 15.1 % (11.8-14.3); White Blood Cell 15.7 10^3/uL (4.4-10.8)
[2020-05-31 19:44] LABS: Albumin 2.7 g/dL (3.4-5.0); BUN/Creatinine Ratio 28.7; Bilirubin, Total 0.8 mg/dL (0.2-1.0); Total Protein 6.6 g/dL (6.4-8.2)
[2020-05-31] MEDS: HYDROcodone-ACET 10/325MG TAB PO PRN (21:38)
[2020-05-31 22:00] VITALS: BP 115/74
[2020-06-01] MEDS: IPRATROPIUM BROMIDE HFA AER IN PRN ×3 (01:37→23:50)
[2020-06-01 05:30] VITALS: BP 118/65
[2020-06-01] MEDS: NYSTATIN (MOUTH-THROAT) 500,000 UNITS/5 ML SUSP MT SCH ×4 (06:00→22:19)
[2020-06-01] MEDS: GABAPENTIN 300 MG CAP PO SCH ×3 (06:18→22:18)
[2020-06-01] MEDS: NILOTINIB 150 MG PO SCH ×2 (06:18→18:11)
[2020-06-01] MEDS: BUDESONIDE (INHALATION) 180 MCG IH IN SCH ×2 (07:47→22:30)
[2020-06-01 09:00] VITALS: BP 95/56
[2020-06-01] MEDS: DexAMETHasone SOD PHOS 10MG/1ML VIAL INJ IV SCH (09:52)
[2020-06-01] MEDS: LIDOCAINE 5% TOPICAL PATCH TOP SCH (09:52)
[2020-06-01] MEDS: POTASSIUM CHL 20 Meq TABLET PO SCH (09:52)
[2020-06-01] MEDS: AMIODARONE HCL 200 MG TAB PO SCH (09:53)
[2020-06-01] MEDS: METOPROLOL SUCCINATE XL 50 MG TAB PO SCH ×2 (09:53→22:19)
[2020-06-01] MEDS: FUROSEMIDE 40 MG/4 ML VIAL IV SCH (09:54)
[2020-06-01] MEDS: levoFLOXacin 500MG 100 ML IV SCH (09:54)
[2020-06-01] MEDS: FAMOTIDINE 20 MG TAB PO SCH (09:55)
[2020-06-01] MEDS: CHOLECALCIFEROL (VITD3) 2,000 UNIT CAP PO SCH (09:55)
[2020-06-01] MEDS: ZINC SULFATE 220mg CAP or TAB PO SCH (09:55)
[2020-06-01] MEDS: ASCORBIC ACID 1,000 MG TAB PO SCH (09:55)
[2020-06-01] MEDS: HYDROcodone-ACET 10/325MG TAB PO PRN ×2 (12:37→22:53)
[2020-06-01 12:47] VITALS: BP 115/82
[2020-06-01 17:44] VITALS: BP 119/68
[2020-06-01 22:00] VITALS: BP 110/78
[2020-06-02 05:00] VITALS: BP 111/66
[2020-06-02] MEDS: NYSTATIN (MOUTH-THROAT) 500,000 UNITS/5 ML SUSP MT SCH ×4 (06:08→22:15)
[2020-06-02] MEDS: NILOTINIB 150 MG PO SCH ×2 (06:08→18:51)
[2020-06-02] MEDS: GABAPENTIN 300 MG CAP PO SCH ×3 (06:08→22:16)
[2020-06-02 08:25] VITALS: BP 94/61
[2020-06-02 08:41] VITALS: BP 94/61
[2020-06-02] MEDS: BUDESONIDE (INHALATION) 180 MCG IH IN SCH ×2 (09:26→23:00)
[2020-06-02] MEDS: FAMOTIDINE 20 MG TAB PO SCH (10:14)
[2020-06-02] MEDS: POTASSIUM CHL 20 Meq TABLET PO SCH (10:14)
[2020-06-02] MEDS: APIXABAN 5 MG TAB PO SCH ×2 (10:15→22:15)
[2020-06-02] MEDS: METOPROLOL SUCCINATE XL 50 MG TAB PO SCH ×2 (10:15→22:00)
[2020-06-02] MEDS: ASCORBIC ACID 1,000 MG TAB PO SCH (10:15)
[2020-06-02] MEDS: AMIODARONE HCL 200 MG TAB PO SCH (10:15)
[2020-06-02] MEDS: LIDOCAINE 5% TOPICAL PATCH TOP SCH (10:16)
[2020-06-02] MEDS: ACETAMINOPHEN 650 mg PER 20.3 mL UD PO PRN (10:16)
[2020-06-02] MEDS: FUROSEMIDE 40 MG/4 ML VIAL IV SCH (10:16)
[2020-06-02] MEDS: ZINC SULFATE 220mg CAP or TAB PO SCH (10:16)
[2020-06-02] MEDS: CHOLECALCIFEROL (VITD3) 2,000 UNIT CAP PO SCH (10:16)
[2020-06-02] MEDS: levoFLOXacin 500MG 100 ML IV SCH (10:16)
[2020-06-02 13:20] VITALS: BP 86/64
[2020-06-02 14:53] LABS: Basophils # (auto) 0 10 ^3/uL (0-0.2); Basophils % (auto) 0.3 % (0.0-2.0); Eosinophils # (auto) 0.1 10 ^3/uL (0-0.8); Eosinophils % (auto) 0.3 % (0.0-7.0); Hemoglobin 13.4 g/dL (13.5-17.5); Lymphocytes # (auto) 0.9 10 ^3/uL (0.4-5.4); Lymphocytes % (auto) 5.5 % (10.0-50.0); Mean Corpuscular Hemoglobin 29.9 pg (28.0-32.0); Mean Corpuscular Hgb Conc. 33.4 g/dL (32.0-36.0); Mean Corpuscular Volume 89.5 fL (80.0-100.0); Monocytes # (auto) 0.7 10 ^3/uL (0-1.3); Monocytes % (auto) 4.6 % (0.0-12.0); Neutrophils # (auto) 14.6 10 ^3/uL (1.6-8.6); Neutrophils % (auto) 89.3 % (37.0-80.0); Platelet Count (auto) 162 10^3/uL (140-450); Red Blood Cells 4.47 10^6/uL (4.5-5.90); Red Cell Distribution Width 15.5 % (11.8-14.3); White Blood Cell 16.3 10^3/uL (4.4-10.8)
[2020-06-02 15:14] LABS: Albumin 2.6 g/dL (3.4-5.0); Calcium 7.4 mg/dL (8.5-10.1)
[2020-06-02 15:34] LABS: BUN/Creatinine Ratio 25.9; Bilirubin, Total 0.9 mg/dL (0.2-1.0); Total Protein 6.1 g/dL (6.4-8.2)
[2020-06-02 16:08] LABS: Potassium 4.4 mmol/L (3.5-5.1)
[2020-06-02 17:28] VITALS: BP 120/54
[2020-06-02 22:00] VITALS: BP 89/52
[2020-06-02] MEDS: HYDROcodone-ACET 10/325MG TAB PO PRN (22:16)
[2020-06-02] MEDS: IPRATROPIUM BROMIDE HFA AER IN PRN (23:00)
[2020-06-03 04:50] VITALS: BP 109/66
[2020-06-03] MEDS: GABAPENTIN 300 MG CAP PO SCH ×3 (05:37→22:14)
[2020-06-03] MEDS: NYSTATIN (MOUTH-THROAT) 500,000 UNITS/5 ML SUSP MT SCH ×4 (05:37→22:14)
[2020-06-03] MEDS: NILOTINIB 150 MG PO SCH ×2 (05:37→17:55)
[2020-06-03] MEDS: BUDESONIDE (INHALATION) 180 MCG IH IN SCH ×2 (07:14→23:00)
[2020-06-03 08:15] VITALS: BP 101/63
[2020-06-03 09:00] VITALS: BP 109/68
[2020-06-03] MEDS: levoFLOXacin 500MG 100 ML IV SCH (10:13)
[2020-06-03] MEDS: ZINC SULFATE 220mg CAP or TAB PO SCH (10:13)
[2020-06-03] MEDS: APIXABAN 5 MG TAB PO SCH ×2 (10:13→22:15)
[2020-06-03] MEDS: FAMOTIDINE 20 MG TAB PO SCH (10:14)
[2020-06-03] MEDS: POTASSIUM CHL 20 Meq TABLET PO SCH (10:14)
[2020-06-03] MEDS: LIDOCAINE 5% TOPICAL PATCH TOP SCH (10:15)
[2020-06-03] MEDS: ASCORBIC ACID 1,000 MG TAB PO SCH (10:15)
[2020-06-03] MEDS: CHOLECALCIFEROL (VITD3) 2,000 UNIT CAP PO SCH (10:15)
[2020-06-03] MEDS: METOPROLOL SUCCINATE XL 50 MG TAB PO SCH ×3 (10:28→22:15)
[2020-06-03] MEDS: FUROSEMIDE 40 MG/4 ML VIAL IV SCH (10:28)
[2020-06-03] MEDS: AMIODARONE HCL 200 MG TAB PO SCH (10:28)
[2020-06-03 14:48] VITALS: BP 107/66
[2020-06-03] MEDS: LACTULOSE 20Gm/30ML SOLN PO PRN (16:05)
[2020-06-03 22:00] VITALS: BP 95/48
[2020-06-03] MEDS: CARISOPRODOL 350 MG TAB PO PRN (23:00)
[2020-06-03] MEDS: IPRATROPIUM BROMIDE HFA AER IN PRN (23:00)
[2020-06-04 05:00] VITALS: BP 91/58
[2020-06-04] MEDS: NYSTATIN (MOUTH-THROAT) 500,000 UNITS/5 ML SUSP MT SCH ×4 (06:16→22:01)
[2020-06-04] MEDS: GABAPENTIN 300 MG CAP PO SCH ×3 (06:16→22:01)
[2020-06-04] MEDS: NILOTINIB 150 MG PO SCH ×2 (06:16→18:48)
[2020-06-04] MEDS: BUDESONIDE (INHALATION) 180 MCG IH IN SCH ×2 (07:35→20:48)
[2020-06-04] MEDS: levoFLOXacin 500MG 100 ML IV SCH (09:31)
[2020-06-04] MEDS: ZINC SULFATE 220mg CAP or TAB PO SCH (09:31)
[2020-06-04] MEDS: AMIODARONE HCL 200 MG TAB PO SCH (09:32)
[2020-06-04] MEDS: APIXABAN 5 MG TAB PO SCH ×2 (09:32→22:01)
[2020-06-04] MEDS: ASCORBIC ACID 1,000 MG TAB PO SCH (09:32)
[2020-06-04] MEDS: FAMOTIDINE 20 MG TAB PO SCH (09:32)
[2020-06-04] MEDS: POTASSIUM CHL 20 Meq TABLET PO SCH ×2 (09:32→09:34)
[2020-06-04] MEDS: CHOLECALCIFEROL (VITD3) 2,000 UNIT CAP PO SCH (09:32)
[2020-06-04] MEDS: LIDOCAINE 5% TOPICAL PATCH TOP SCH (09:33)
[2020-06-04] MEDS: METOPROLOL SUCCINATE XL 50 MG TAB PO SCH ×3 (09:33→22:30)
[2020-06-04] MEDS: FUROSEMIDE 40 MG/4 ML VIAL IV SCH (09:33)
[2020-06-04 12:30] VITALS: BP 120/71
[2020-06-04] MEDS: LORazepam 0.5 MG TAB PO PRN (13:31)
[2020-06-04 17:00] VITALS: BP 98/69
[2020-06-04] MEDS: CARISOPRODOL 350 MG TAB PO PRN (20:07)
[2020-06-04] MEDS: IPRATROPIUM BROMIDE HFA AER IN PRN (20:48)
[2020-06-04 21:00] VITALS: BP 82/44
[2020-06-04] MEDS ORDERED: FAMOTIDINE 20 MG TAB PO SCH (22:00)
[2020-06-04 22:30] VITALS: BP 75/42
[2020-06-04] MEDS ORDERED: KETOROLAC TROMETH 30 MG/ML 1ML VIAL IV PRN (22:45)
[2020-06-04] MEDS ORDERED: SODIUM CHLORIDE 0.9% 500 ML IV ONE (23:45)
[2020-06-05] VITALS (7 sets, daily range): BP systolic 87–116; BP diastolic 51–68
[2020-06-05] MEDS: ACETAMINOPHEN 650 mg PER 20.3 mL UD PO PRN ×2 (06:32→20:22)
[2020-06-05] MEDS: GABAPENTIN 300 MG CAP PO SCH ×3 (06:32→21:36)
[2020-06-05] MEDS: NILOTINIB 150 MG PO SCH ×2 (06:32→17:48)
[2020-06-05] MEDS: NYSTATIN (MOUTH-THROAT) 500,000 UNITS/5 ML SUSP MT SCH ×4 (06:32→21:35)
[2020-06-05] MEDS: IPRATROPIUM BROMIDE HFA AER IN PRN ×2 (07:35→21:39)
[2020-06-05] MEDS: METOPROLOL SUCCINATE XL 50 MG TAB PO SCH ×2 (10:33→21:36)
[2020-06-05] MEDS: CHOLECALCIFEROL (VITD3) 2,000 UNIT CAP PO SCH (10:33)
[2020-06-05] MEDS: FAMOTIDINE 20 MG TAB PO SCH (10:33)
[2020-06-05] MEDS: POTASSIUM CHL 20 Meq TABLET PO SCH (10:33)
[2020-06-05] MEDS: ASCORBIC ACID 1,000 MG TAB PO SCH (10:33)
[2020-06-05] MEDS: LIDOCAINE 5% TOPICAL PATCH TOP SCH (10:33)
[2020-06-05] MEDS: APIXABAN 5 MG TAB PO SCH ×2 (10:34→21:36)
[2020-06-05] MEDS: ZINC SULFATE 220mg CAP or TAB PO SCH (10:39)
[2020-06-05] MEDS: AMIODARONE HCL 200 MG TAB PO SCH (10:39)
[2020-06-05] MEDS: levoFLOXacin 500MG 100 ML IV SCH (10:39)
[2020-06-05] MEDS: FUROSEMIDE 40 MG/4 ML VIAL IV SCH (10:40)
[2020-06-05] MEDS: BUDESONIDE (INHALATION) 180 MCG IH IN SCH ×2 (11:51→21:39)
[2020-06-05 13:37] LABS: Basophils # (auto) 0 10 ^3/uL (0-0.2); Basophils % (auto) 0.4 % (0.0-2.0); Eosinophils # (auto) 0.2 10 ^3/uL (0-0.8); Eosinophils % (auto) 1.2 % (0.0-7.0); Hematocrit 36.9 % (41.0-53.0); Hemoglobin 12.3 g/dL (13.5-17.5); Lymphocytes # (auto) 0.9 10 ^3/uL (0.4-5.4); Lymphocytes % (auto) 6.3 % (10.0-50.0); Mean Corpuscular Hemoglobin 29.9 pg (28.0-32.0); Mean Corpuscular Hgb Conc. 33.4 g/dL (32.0-36.0); Mean Corpuscular Volume 89.5 fL (80.0-100.0); Monocytes # (auto) 0.8 10 ^3/uL (0-1.3); Monocytes % (auto) 5.8 % (0.0-12.0); Neutrophils # (auto) 12.1 10 ^3/uL (1.6-8.6); Neutrophils % (auto) 86.3 % (37.0-80.0); Nucleated Red Blood Cells % 0.1 %; Platelet Count (auto) 132 10^3/uL (140-450); Red Blood Cells 4.12 10^6/uL (4.5-5.90); Red Cell Distribution Width 15.3 % (11.8-14.3)
[2020-06-05 13:42] LABS: Albumin 2.4 g/dL (3.4-5.0); Calcium 7.6 mg/dL (8.5-10.1)
[2020-06-05 13:45] LABS: BUN/Creatinine Ratio 19.8; Bilirubin, Total 1.1 mg/dL (0.2-1.0)
[2020-06-06] MEDS: NILOTINIB 150 MG PO SCH ×2 (05:22→18:01)
[2020-06-06] MEDS: NYSTATIN (MOUTH-THROAT) 500,000 UNITS/5 ML SUSP MT SCH ×4 (05:22→21:41)
[2020-06-06] MEDS: GABAPENTIN 300 MG CAP PO SCH ×3 (05:22→21:41)
[2020-06-06 06:00] VITALS: BP 91/59
[2020-06-06] MEDS: IPRATROPIUM BROMIDE HFA AER IN PRN (08:18)
[2020-06-06 08:30] VITALS: BP 87/48
[2020-06-06] MEDS: ZINC SULFATE 220mg CAP or TAB PO SCH (09:40)
[2020-06-06] MEDS: AMIODARONE HCL 200 MG TAB PO SCH (09:40)
[2020-06-06] MEDS: levoFLOXacin 500MG 100 ML IV SCH (09:40)
[2020-06-06] MEDS: FUROSEMIDE 40 MG/4 ML VIAL IV SCH (09:40)
[2020-06-06] MEDS: POTASSIUM CHL 20 Meq TABLET PO SCH (09:41)
[2020-06-06] MEDS: ASCORBIC ACID 1,000 MG TAB PO SCH (09:41)
[2020-06-06] MEDS: METOPROLOL SUCCINATE XL 50 MG TAB PO SCH ×2 (09:41→22:00)
[2020-06-06] MEDS: APIXABAN 5 MG TAB PO SCH ×2 (09:41→21:41)
[2020-06-06] MEDS: CHOLECALCIFEROL (VITD3) 2,000 UNIT CAP PO SCH (09:41)
[2020-06-06] MEDS: LIDOCAINE 5% TOPICAL PATCH TOP SCH (09:41)
[2020-06-06] MEDS: FAMOTIDINE 20 MG TAB PO SCH ×2 (09:41→21:41)
[2020-06-06] MEDS: BUDESONIDE (INHALATION) 180 MCG IH IN SCH ×2 (09:42→22:19)
[2020-06-06 16:00] VITALS: BP 96/68
[2020-06-06] MEDS: DOCUSATE SOD 100 MG CAP PO PRN (20:25)
[2020-06-06 22:00] VITALS: BP 108/80
[2020-06-07] MEDS: LORazepam 0.5 MG TAB PO PRN ×2 (04:32→22:39)
[2020-06-07 05:22] VITALS: BP 116/57
[2020-06-07] MEDS: GABAPENTIN 300 MG CAP PO SCH ×3 (05:52→21:49)
[2020-06-07] MEDS: NYSTATIN (MOUTH-THROAT) 500,000 UNITS/5 ML SUSP MT SCH (05:52)
[2020-06-07] MEDS: NILOTINIB 150 MG PO SCH ×2 (05:52→18:00)
[2020-06-07 08:39] VITALS: BP 90/54
[2020-06-07] MEDS: CHOLECALCIFEROL (VITD3) 2,000 UNIT CAP PO SCH (09:09)
[2020-06-07] MEDS: levoFLOXacin 500MG 100 ML IV SCH (09:09)
[2020-06-07] MEDS: ZINC SULFATE 220mg CAP or TAB PO SCH (09:09)
[2020-06-07] MEDS: ASCORBIC ACID 1,000 MG TAB PO SCH (09:10)
[2020-06-07] MEDS: FAMOTIDINE 20 MG TAB PO SCH ×2 (09:10→21:49)
[2020-06-07] MEDS: POTASSIUM CHL 20 Meq TABLET PO SCH (09:10)
[2020-06-07] MEDS: METOPROLOL SUCCINATE XL 50 MG TAB PO SCH ×2 (09:11→21:49)
[2020-06-07] MEDS: AMIODARONE HCL 200 MG TAB PO SCH (09:11)
[2020-06-07] MEDS: FUROSEMIDE 40 MG/4 ML VIAL IV SCH (09:12)
[2020-06-07] MEDS: APIXABAN 5 MG TAB PO SCH ×2 (09:12→21:48)
[2020-06-07] MEDS: LIDOCAINE 5% TOPICAL PATCH TOP SCH (09:17)
[2020-06-07] MEDS: BUDESONIDE (INHALATION) 180 MCG IH IN SCH ×2 (10:00→22:39)
[2020-06-07 16:00] VITALS: BP 95/61
[2020-06-07 22:29] VITALS: BP 97/50
[2020-06-08 04:49] VITALS: BP 85/47
[2020-06-08 05:26] VITALS: BP 85/47
[2020-06-08] MEDS: NILOTINIB 150 MG PO SCH ×2 (06:06→17:30)
[2020-06-08] MEDS: GABAPENTIN 300 MG CAP PO SCH ×3 (06:06→22:42)
[2020-06-08 06:21] VITALS: BP 107/56
[2020-06-08 08:00] VITALS: BP 105/56
[2020-06-08] MEDS: ZINC SULFATE 220mg CAP or TAB PO SCH (08:30)
[2020-06-08] MEDS: APIXABAN 5 MG TAB PO SCH ×2 (08:31→22:42)
[2020-06-08] MEDS: AMIODARONE HCL 200 MG TAB PO SCH (08:31)
[2020-06-08] MEDS: CHOLECALCIFEROL (VITD3) 2,000 UNIT CAP PO SCH (08:31)
[2020-06-08] MEDS: FAMOTIDINE 20 MG TAB PO SCH ×2 (08:32→22:42)
[2020-06-08] MEDS: POTASSIUM CHL 20 Meq TABLET PO SCH (08:32)
[2020-06-08] MEDS: ASCORBIC ACID 1,000 MG TAB PO SCH (08:32)
[2020-06-08] MEDS: levoFLOXacin 500MG 100 ML IV SCH (08:33)
[2020-06-08] MEDS: LIDOCAINE 5% TOPICAL PATCH TOP SCH (08:33)
[2020-06-08] MEDS: FUROSEMIDE 40 MG/4 ML VIAL IV SCH (08:49)
[2020-06-08] MEDS: BUDESONIDE (INHALATION) 180 MCG IH IN SCH (09:03)
[2020-06-08] MEDS: METOPROLOL SUCCINATE XL 50 MG TAB PO SCH ×2 (10:00→22:00)
[2020-06-08 16:00] VITALS: BP 88/42
[2020-06-08 16:14] LABS: Basophils # (auto) 0 10 ^3/uL (0-0.2); Basophils % (auto) 0.3 % (0.0-2.0); Eosinophils # (auto) 0.1 10 ^3/uL (0-0.8); Eosinophils % (auto) 1.1 % (0.0-7.0); Hematocrit 32.2 % (41.0-53.0); Hemoglobin 11.3 g/dL (13.5-17.5); Lymphocytes # (auto) 0.7 10 ^3/uL (0.4-5.4); Lymphocytes % (auto) 6.4 % (10.0-50.0); Mean Corpuscular Hemoglobin 31.4 pg (28.0-32.0); Mean Corpuscular Hgb Conc. 35.2 g/dL (32.0-36.0); Mean Corpuscular Volume 89.2 fL (80.0-100.0); Monocytes # (auto) 0.8 10 ^3/uL (0-1.3); Monocytes % (auto) 7.3 % (0.0-12.0); Neutrophils % (auto) 84.9 % (37.0-80.0); Platelet Count (auto) 120 10^3/uL (140-450); Red Blood Cells 3.61 10^6/uL (4.5-5.90); Red Cell Distribution Width 15.8 % (11.8-14.3); White Blood Cell 10.6 10^3/uL (4.4-10.8)
[2020-06-08 16:42] LABS: BUN/Creatinine Ratio 14.9; Calcium 8.1 mg/dL (8.5-10.1); Potassium 3.7 mmol/L (3.5-5.1)
[2020-06-08] MEDS: LORazepam 0.5 MG TAB PO PRN (22:45)
[2020-06-08] MEDS: DOCUSATE SOD 100 MG CAP PO PRN (22:45)
[2020-06-09] VITALS: BP 112/69
[2020-06-09] MEDS: GABAPENTIN 300 MG CAP PO SCH ×3 (06:27→21:39)
[2020-06-09] MEDS: BUDESONIDE (INHALATION) 180 MCG IH IN SCH ×3 (06:27→22:02)
[2020-06-09] MEDS: NILOTINIB 150 MG PO SCH ×2 (06:37→17:41)
[2020-06-09 07:57] VITALS: BP 105/65
[2020-06-09] MEDS: FAMOTIDINE 20 MG TAB PO SCH ×2 (08:51→21:39)
[2020-06-09] MEDS: CHOLECALCIFEROL (VITD3) 2,000 UNIT CAP PO SCH (08:51)
[2020-06-09] MEDS: levoFLOXacin 500MG 100 ML IV SCH (08:51)
[2020-06-09] MEDS: LIDOCAINE 5% TOPICAL PATCH TOP SCH (08:51)
[2020-06-09] MEDS: AMIODARONE HCL 200 MG TAB PO SCH (08:52)
[2020-06-09] MEDS: POTASSIUM CHL 20 Meq TABLET PO SCH (08:52)
[2020-06-09] MEDS: ZINC SULFATE 220mg CAP or TAB PO SCH (08:52)
[2020-06-09] MEDS: ASCORBIC ACID 1,000 MG TAB PO SCH (08:52)
[2020-06-09] MEDS: APIXABAN 5 MG TAB PO SCH ×2 (08:52→21:39)
[2020-06-09] MEDS: FUROSEMIDE 40 MG/4 ML VIAL IV SCH (08:53)
[2020-06-09] MEDS: METOPROLOL SUCCINATE XL 50 MG TAB PO SCH (09:52)
[2020-06-09 16:00] VITALS: BP 96/52
[2020-06-09] MEDS: LORazepam 0.5 MG TAB PO PRN (21:40)
[2020-06-09] MEDS: METOPROLOL TARTRATE 25 MG TAB PO SCH (22:00)
[2020-06-10] VITALS: BP 102/54
[2020-06-10] MEDS: GABAPENTIN 300 MG CAP PO SCH ×2 (06:24→14:00)
[2020-06-10] MEDS: NILOTINIB 150 MG PO SCH ×2 (06:25→18:00)
[2020-06-10 07:14] LABS: Hematocrit 31.5 % (41.0-53.0); Hemoglobin 10.8 g/dL (13.5-17.5); Mean Corpuscular Hemoglobin 30.6 pg (28.0-32.0); Mean Corpuscular Hgb Conc. 34.2 g/dL (32.0-36.0); Mean Corpuscular Volume 89.6 fL (80.0-100.0); Platelet Count (auto) 105 10^3/uL (140-450); Red Blood Cells 3.52 10^6/uL (4.5-5.90); Red Cell Distribution Width 16.1 % (11.8-14.3); White Blood Cell 9.6 10^3/uL (4.4-10.8)
[2020-06-10 07:19] LABS: Basophils % (manual) 0 (0.0-2.0); Blast Cells 0; Metamyelocytes % 0; Myelocytes % 0; Promyelocytes % 0; Reactive Lymphocytes 0
[2020-06-10 07:34] LABS: BUN/Creatinine Ratio 15.8; Calcium 8.1 mg/dL (8.5-10.1); Potassium 3.8 mmol/L (3.5-5.1)
[2020-06-10] MEDS: IPRATROPIUM BROMIDE HFA AER IN PRN (07:53)
[2020-06-10] MEDS: BUDESONIDE (INHALATION) 180 MCG IH IN SCH (07:53)
[2020-06-10 08:17] LABS: Band Neutrophils % (manual) 2; Eosinophils % (manual) 2 (0-7); Lymphocytes % (manual) 10 (10.0-50.0); Monocytes % (manual) 7 (0-12)
[2020-06-10 09:00] VITALS: BP 98/50
[2020-06-10] MEDS: AMIODARONE HCL 200 MG TAB PO SCH (10:00)
[2020-06-10] MEDS: FAMOTIDINE 20 MG TAB PO SCH (10:00)
[2020-06-10] MEDS: FUROSEMIDE 40 MG/4 ML VIAL IV SCH (10:00)
[2020-06-10] MEDS: levoFLOXacin 500MG 100 ML IV SCH (10:00)
[2020-06-10] MEDS: ZINC SULFATE 220mg CAP or TAB PO SCH (10:00)
[2020-06-10] MEDS: POTASSIUM CHL 20 Meq TABLET PO SCH (10:00)
[2020-06-10] MEDS: METOPROLOL TARTRATE 25 MG TAB PO SCH (10:00)
[2020-06-10] MEDS: APIXABAN 5 MG TAB PO SCH (10:00)
[2020-06-10] MEDS: LIDOCAINE 5% TOPICAL PATCH TOP SCH (10:00)
[2020-06-10] MEDS: ASCORBIC ACID 1,000 MG TAB PO SCH (10:00)
[2020-06-10] MEDS: CHOLECALCIFEROL (VITD3) 2,000 UNIT CAP PO SCH (10:00)
[2020-06-10 15:59] VITALS: BP 98/50
[2020-06-10 16:34] VITALS: BP 94/51
[2020-06-10] MEDS: ACETAMINOPHEN 650 mg PER 20.3 mL UD PO PRN (17:11)
== END 2020-06-10 18:25 | disposition home health service (06) | DRG 177 ==
LOC: ER 11:54 → TELE 17:06 → TELE-EAST 05-13 13:00
PROVIDERS: ADMIT Internal Medicine Cardiovascular Disease; ATTEND Internal Medicine Cardiovascular Disease
PROC: XW033E5 Introduction of Remdesivir Anti-infective into Peripheral Vein, Percutaneous Approach, New Technology Group 5 (ICD-10-PCS; principal; 2020-05-14)
PROC: 05HF33Z Insertion of Infusion Device into Left Cephalic Vein, Percutaneous Approach (ICD-10-PCS; 2020-05-16)
PROC: B54NZZA Ultrasonography of Left Upper Extremity Veins, Guidance (ICD-10-PCS; 2020-05-16)
PROC: 5A09357 Assistance with Respiratory Ventilation, Less than 24 Consecutive Hours, Continuous Positive Airway Pressure (ICD-10-PCS; 2020-05-23)
PROC: 5A09357 Assistance with Respiratory Ventilation, Less than 24 Consecutive Hours, Continuous Positive Airway Pressure (ICD-10-PCS; 2020-05-24)
DX: U07.1 COVID-19 (principal); J12.89 Other viral pneumonia; J96.01 Acute respiratory failure with hypoxia; I50.22 Chronic systolic (congestive) heart failure; N17.9 Acute kidney failure, unspecified; C91.10 Chronic lymphocytic leukemia of B-cell type not having achieved remission; I13.0 Hypertensive heart and chronic kidney disease with heart failure and stage 1 through stage 4 chronic kidney disease, or unspecified chronic kidney disease; D68.59 Other primary thrombophilia; I48.20 Chronic atrial fibrillation, unspecified; I25.10 Atherosclerotic heart disease of native coronary artery without angina pectoris; I48.91 Unspecified atrial fibrillation; I49.5 Sick sinus syndrome; I25.5 Ischemic cardiomyopathy; I70.0 Atherosclerosis of aorta; D69.6 Thrombocytopenia, unspecified; E87.6 Hypokalemia; N18.9 Chronic kidney disease, unspecified; E87.5 Hyperkalemia; Z88.8 Allergy status to other drugs, medicaments and biological substances; Z79.899 Other long term (current) drug therapy; Z95.0 Presence of cardiac pacemaker; Z91.19 Patient's noncompliance with other medical treatment and regimen
CPT/HCPCS: 36415; 36600; 71045; 80048; 80053; 81001; 82728; 82805; 83615; 83880; 84484; 85007; 85025; 85027; 85379; 85610; 85730; 86141; 87081; 87426; 93005; 94640; 94660; 94760; 97110; 97116; 97163; 97530; G0378; J1100; J1885; J1956; J3480

== ENCOUNTER → 2020-06-12 | Outpatient (CLI) | payer MEDICARE, BC ==
[~2020-06-12] MED LIST changes: -ATOR20TA50 PO; +CYANOCOBALAMIN (B-12) 1000 MCG/1 ML VIAL IM ONE; +CYANOCOBALAMIN (B-12) 1000 MCG/1 ML VIAL ONE; -DILT30TA24 PO; +FURO20TA3 PO; -HYDR-4833 PO; +KETOROLAC TROMETH 60MG/2ML VIAL IM ONE; +KETOROLAC TROMETH 60MG/2ML VIAL ONE; -OME20T PO; +TESTOSTERONE CYPIONATE 200 MG/ML 1ML VIAL IM ONE
[2020-06-12 10:00] VITALS: BP 93/49
[2020-06-12 12:40] VITALS: BP 103/56
== END | disposition home or self-care (01) ==
LOC: Rad HDHVI 09:42
PROVIDERS: ATTEND Internal Medicine Cardiovascular Disease
DX: J18.9 Pneumonia, unspecified organism (principal); I13.0 Hypertensive heart and chronic kidney disease with heart failure and stage 1 through stage 4 chronic kidney disease, or unspecified chronic kidney disease; N18.9 Chronic kidney disease, unspecified; I50.22 Chronic systolic (congestive) heart failure; I25.10 Atherosclerotic heart disease of native coronary artery without angina pectoris; I48.11 Longstanding persistent atrial fibrillation; I42.8 Other cardiomyopathies; E29.1 Testicular hypofunction; U07.1 COVID-19; R06.02 Shortness of breath; D64.9 Anemia, unspecified; R53.83 Other fatigue; Z79.899 Other long term (current) drug therapy
CPT/HCPCS: 71046; 96372; G0463; J1071; J1885; J3420

== ENCOUNTER → 2020-06-19 | Outpatient (CLI) | payer MEDICARE, BC ==
[~2020-06-19] MED LIST changes: +APIX5TAB PO; +ATOR20TA50 PO; +DIGO0.12 PO; +DILT40TA PO; +FUROSEMIDE 100 MG/10ML VIAL IV ONE; +FUROSEMIDE 40 MG/4 ML VIAL ONE; +HYDR-4072 PO; -KETOROLAC TROMETH 60MG/2ML VIAL IM ONE; -KETOROLAC TROMETH 60MG/2ML VIAL ONE; +LEV100T PO; +OMEP-434 PO; +POTA10TA51 PO; +POTASSIUM CHL 20 Meq TABLET PO ONE; -TESTOSTERONE CYPIONATE 200 MG/ML 1ML VIAL IM ONE
[2020-06-19 11:11] LABS: Basophils # (auto) 0 10 ^3/uL (0-0.2); Basophils % (auto) 0.5 % (0.0-2.0); Eosinophils # (auto) 0.1 10 ^3/uL (0-0.8); Eosinophils % (auto) 1.4 % (0.0-7.0); Hematocrit 33.2 % (41.0-53.0); Hemoglobin 10.9 g/dL (13.5-17.5); Lymphocytes # (auto) 0.9 10 ^3/uL (0.4-5.4); Lymphocytes % (auto) 12.5 % (10.0-50.0); Mean Corpuscular Hgb Conc. 32.9 g/dL (32.0-36.0); Mean Corpuscular Volume 91.3 fL (80.0-100.0); Monocytes # (auto) 0.6 10 ^3/uL (0-1.3); Monocytes % (auto) 7.4 % (0.0-12.0); Neutrophils # (auto) 5.9 10 ^3/uL (1.6-8.6); Neutrophils % (auto) 78.2 % (37.0-80.0); Nucleated Red Blood Cells % 0.1 %; Red Blood Cells 3.64 10^6/uL (4.5-5.90); Red Cell Distribution Width 17.6 % (11.8-14.3); White Blood Cell 7.5 10^3/uL (4.4-10.8)
[2020-06-19 11:14] LABS: Potassium 3.3 mmol/L (3.5-5.1)
[2020-06-19 11:22] LABS: Albumin 2.4 g/dL (3.4-5.0); BUN/Creatinine Ratio 10.2; Bilirubin, Total 0.5 mg/dL (0.2-1.0); Calcium 8.8 mg/dL (8.5-10.1); Magnesium 2.4 mg/dL (1.6-2.6); Total Protein 7.4 g/dL (6.4-8.2)
[2020-06-19 13:30] VITALS: BP 127/57
== END | disposition home or self-care (01) ==
LOC: Rad HDHVI 10:19
PROVIDERS: ATTEND Internal Medicine Cardiovascular Disease
DX: D64.9 Anemia, unspecified (principal); I13.0 Hypertensive heart and chronic kidney disease with heart failure and stage 1 through stage 4 chronic kidney disease, or unspecified chronic kidney disease; I50.22 Chronic systolic (congestive) heart failure; N18.9 Chronic kidney disease, unspecified; I25.10 Atherosclerotic heart disease of native coronary artery without angina pectoris; I48.11 Longstanding persistent atrial fibrillation; I82.409 Acute embolism and thrombosis of unspecified deep veins of unspecified lower extremity; I42.8 Other cardiomyopathies; U07.1 COVID-19; R53.83 Other fatigue; R09.02 Hypoxemia; Z79.899 Other long term (current) drug therapy
CPT/HCPCS: 36415; 71046; 80053; 83735; 83880; 85025; 96372; 96374; G0463; J1940; J3420

== ENCOUNTER → 2020-08-05 | Outpatient (CLI) | payer MEDICARE, BC ==
[~2020-08-05] MED LIST changes: -APIX5TAB PO; -ATOR20TA50 PO; -CYANOCOBALAMIN (B-12) 1000 MCG/1 ML VIAL IM ONE; -CYANOCOBALAMIN (B-12) 1000 MCG/1 ML VIAL ONE; -DIGO0.12 PO; -DILT40TA PO; -FUROSEMIDE 100 MG/10ML VIAL IV ONE; -FUROSEMIDE 40 MG/4 ML VIAL ONE; -HYDR-4072 PO; -LEV100T PO; -OMEP-434 PO; -POTA10TA51 PO; -POTASSIUM CHL 20 Meq TABLET PO ONE
== END | disposition home or self-care (01) ==
LOC: Rad HDHVI 10:12
PROVIDERS: ATTEND Internal Medicine Cardiovascular Disease
DX: I48.20 Chronic atrial fibrillation, unspecified (principal); I20.0 Unstable angina
CPT/HCPCS: 93306

== ENCOUNTER → 2020-10-25 | Outpatient (CLI) | payer MEDICARE, BC ==
[~2020-10-25] MED LIST changes: +APIX5TAB PO; +ATOR20TA50 PO; +DIGO0.12 PO; +DILT40TA PO; +HYDR-4072 PO; +LEV100T PO; +OMEP-434 PO; +POTA10TA51 PO
[2020-10-25 10:00] VITALS: BP 136/67
[2020-10-25 10:45] VITALS: BP 136/66
[2020-10-25 12:06] LABS: Basophils # (auto) 0 10 ^3/uL (0-0.2); Basophils % (auto) 0.4 % (0.0-2.0); Eosinophils # (auto) 0.1 10 ^3/uL (0-0.8); Hematocrit 42.2 % (41.0-53.0); Hemoglobin 13.9 g/dL (13.5-17.5); Lymphocytes # (auto) 1.4 10 ^3/uL (0.4-5.4); Mean Corpuscular Hemoglobin 29.6 pg (28.0-32.0); Mean Corpuscular Hgb Conc. 32.9 g/dL (32.0-36.0); Mean Corpuscular Volume 89.8 fL (80.0-100.0); Monocytes # (auto) 0.8 10 ^3/uL (0-1.3); Monocytes % (auto) 8.4 % (0.0-12.0); Neutrophils # (auto) 7.7 10 ^3/uL (1.6-8.6); Neutrophils % (auto) 76.2 % (37.0-80.0); Nucleated Red Blood Cells % 0.1 %; Platelet Count (auto) 101 10^3/uL (140-450); Red Cell Distribution Width 14.6 % (11.8-14.3); White Blood Cell 10.1 10^3/uL (4.4-10.8)
[2020-10-25 12:14] LABS: INR 1.01 (0.9-1.15); Partial Thromboplastin Time 30.8 sec (23.0-31.2)
[2020-10-25 12:20] LABS: Potassium 4.1 mmol/L (3.5-5.1)
[2020-10-25 12:24] LABS: BUN/Creatinine Ratio 14.8; Calcium 8.6 mg/dL (8.5-10.1)
== END | disposition home or self-care (01) ==
LOC: Rad HDHVI 09:51
PROVIDERS: ATTEND Internal Medicine Cardiovascular Disease
DX: Z01.812 Encounter for preprocedural laboratory examination (principal); J98.4 Other disorders of lung; I70.0 Atherosclerosis of aorta
CPT/HCPCS: 36415; 71046; 80048; 85025; 85610; 85730; 93005; G0463

== ENCOUNTER 2020-10-31 07:33 | Day surgery (SDC) | payer MEDICARE, BC ==
[~2020-10-31] VITALS: Ht 177.8 cm; Wt 90.7 kg
[2020-10-31] MEDS ORDERED: MIDAZOLAM HCL 2MG/2ML 2ml VIAL (1mg/ml) IV ONE ×2 (09:30→10:00)
== END 2020-10-31 11:55 | disposition home or self-care (01) ==
LOC: CATH 07:33
PROVIDERS: ATTEND Internal Medicine Cardiovascular Disease
DX: I49.5 Sick sinus syndrome (principal); J43.9 Emphysema, unspecified; I20.8 Other forms of angina pectoris; Z20.822 Contact with and (suspected) exposure to COVID-19; Z98.890 Other specified postprocedural states; Z87.891 Personal history of nicotine dependence; Z79.899 Other long term (current) drug therapy
CPT/HCPCS: 92960; J2250; J7030; U0003; 93005; 99152

== ENCOUNTER → 2020-12-04 | Outpatient (CLI) | payer MEDICARE, BC ==
[2020-12-04 11:52] LABS: Urine Blood Negative /uL (Negative); Urine Specific Gravity 1.018 (1.001-1.035)
== END | disposition home or self-care (01) ==
LOC: LAB 10:36
PROVIDERS: ATTEND Internal Medicine Cardiovascular Disease
DX: C61 Malignant neoplasm of prostate (principal); E11.9 Type 2 diabetes mellitus without complications; N39.0 Urinary tract infection, site not specified
CPT/HCPCS: 36415; 81003; 83036; 84153

== ENCOUNTER → 2021-01-27 | Outpatient (CLI) | payer MEDICARE, BC ==
[~2021-01-27] VITALS: Ht 167.6 cm; Wt 70.3 kg
[~2021-01-27] MED LIST changes: +ADENOSINE 59 MG in GIVE UN-DILUTED 0 ML IV ONE; +ADENOSINE 90 MG/30 ML INJ IV ONE
== END | disposition home or self-care (01) ==
LOC: Rad HDHVI 09:32
PROVIDERS: ATTEND Internal Medicine Cardiovascular Disease
DX: I11.0 Hypertensive heart disease with heart failure (principal); I50.43 Acute on chronic combined systolic (congestive) and diastolic (congestive) heart failure; I48.0 Paroxysmal atrial fibrillation; R07.9 Chest pain, unspecified; I25.5 Ischemic cardiomyopathy; E78.00 Pure hypercholesterolemia, unspecified; Z95.0 Presence of cardiac pacemaker
CPT/HCPCS: 78452; 93005; 96374; 96375; A9500; J0153

== ENCOUNTER 2021-04-26 16:53 | Emergency (ER) | payer MEDICARE, OTHER ==
[~2021-04-26] VITALS: Ht 177.8 cm; Wt 88.5 kg
[~2021-04-26 16:53] MED LIST changes: -ADENOSINE 59 MG in GIVE UN-DILUTED 0 ML IV ONE; -ADENOSINE 90 MG/30 ML INJ IV ONE
[2021-04-26 18:04] LABS: Basophils # (auto) 0.1 10 ^3/uL (0-0.2); Basophils % (auto) 0.7 % (0.0-2.0); Eosinophils # (auto) 0.1 10 ^3/uL (0-0.8); Hematocrit 41.2 % (41.0-53.0); Hemoglobin 13.5 g/dL (13.5-17.5); Lymphocytes # (auto) 1.4 10 ^3/uL (0.4-5.4); Mean Corpuscular Hemoglobin 29.1 pg (28.0-32.0); Mean Corpuscular Hgb Conc. 32.7 g/dL (32.0-36.0); Mean Corpuscular Volume 89.1 fL (80.0-100.0); Monocytes % (auto) 7.4 % (0.0-12.0); Neutrophils % (auto) 80.9 % (37.0-80.0); Nucleated Red Blood Cells % 0.1 %; Red Blood Cells 4.63 10^6/uL (4.5-5.90); Red Cell Distribution Width 17.6 % (11.8-14.3); White Blood Cell 13.6 10^3/uL (4.4-10.8)
[2021-04-26 18:18] LABS: Albumin 2.8 g/dL (3.4-5.0); Calcium 7.9 mg/dL (8.5-10.1); Magnesium 2.9 mg/dL (1.6-2.6); Potassium 5.1 mmol/L (3.5-5.1)
[2021-04-26 18:21] LABS: Bilirubin, Total 1.2 mg/dL (0.2-1.0); Total Protein 6.5 g/dL (6.4-8.2)
[2021-04-26 22:29] LABS: Urine Bacteria FEW /hpf (None Seen); Urine Blood Negative /uL (Negative); Urine Hyaline Cast FEW /lpf (0 - 2); Urine Specific Gravity 1.005 (1.001-1.035); Urine WBC 1 /hpf (0 - 3)
[2021-04-27] MEDS ORDERED: UROJET2 MM (00:40)
[2021-04-27] MEDS ORDERED: PHEN1TAB38 PO (00:40)
[2021-04-27 01:10] VITALS: BP 104/77
== END 2021-04-27 03:16 | disposition home or self-care (01) ==
LOC: ER 16:53
DX: R33.9 Retention of urine, unspecified (principal); I10 Essential (primary) hypertension; I25.10 Atherosclerotic heart disease of native coronary artery without angina pectoris; Z79.899 Other long term (current) drug therapy
CPT/HCPCS: 36415; 80053; 81001; 83735; 84484; 85025; 87086; 93005

== ENCOUNTER → 2021-05-14 | Outpatient (CLI) | payer MEDICARE, OTHER ==
[~2021-05-14] MED LIST changes: +ALPR0.5T7 PO; +ASCO500T11 PO; +CHOL400C7 PO; +COEN100C30 PO; +FURO40TA4 PO; +IOHEXOL 300 MG/ML 100ML BOTTLE IJ ONE; +LIDO4PAD8 EX; +OMEG120017 PO; +PHEN1TAB38 PO; +SACC1CAP3 PO; +UROJET2 MM; +ZINC50TA7 PO
[2021-05-14 11:42] VITALS: BP 151/78
[2021-05-14 12:12] VITALS: BP 138/75
[2021-05-14 15:09] LABS: Basophils # (auto) 0.1 10 ^3/uL (0-0.2); Eosinophils # (auto) 0.1 10 ^3/uL (0-0.8); Eosinophils % (auto) 0.9 % (0.0-7.0); Hemoglobin 12.7 g/dL (13.5-17.5); Monocytes # (auto) 0.8 10 ^3/uL (0-1.3); White Blood Cell 12.8 10^3/uL (4.4-10.8)
[2021-05-14 15:11] LABS: Basophils % (auto) 0.5 % (0.0-2.0); Hematocrit 39.2 % (41.0-53.0); Lymphocytes # (auto) 0.9 10 ^3/uL (0.4-5.4); Lymphocytes % (auto) 7.1 % (10.0-50.0); Mean Corpuscular Hemoglobin 29.4 pg (28.0-32.0); Mean Corpuscular Hgb Conc. 32.4 g/dL (32.0-36.0); Mean Corpuscular Volume 90.6 fL (80.0-100.0); Monocytes % (auto) 6.2 % (0.0-12.0); Neutrophils # (auto) 10.9 10 ^3/uL (1.6-8.6); Neutrophils % (auto) 85.3 % (37.0-80.0); Red Blood Cells 4.33 10^6/uL (4.5-5.90)
[2021-05-14 15:20] LABS: BUN/Creatinine Ratio 9.4; Potassium 4.3 mmol/L (3.5-5.1)
[2021-05-14 15:25] LABS: INR 1.2 (0.9-1.15); Partial Thromboplastin Time 35.2 sec (23.6-33.0)
== END | disposition home or self-care (01) ==
LOC: Rad HDHVI 11:16
PROVIDERS: ATTEND Internal Medicine Cardiovascular Disease
DX: Z01.812 Encounter for preprocedural laboratory examination (principal); Z01.818 Encounter for other preprocedural examination
CPT/HCPCS: 36415; 71046; 80048; 85025; 85610; 85730; 93005; G0463

== ENCOUNTER 2021-05-15 08:47 | Inpatient (IN) | payer MEDICARE, OTHER ==
[~2021-05-15] VITALS: Ht 177.8 cm; Wt 88.3 kg
[2021-05-15] VITALS (17 sets, daily range): BP systolic 117–143; BP diastolic 53–77
[~2021-05-15 08:47] MED LIST changes: -ALPR0.25 PO; -DILT40TA PO; -FURO20TA3 PO; -IOHEXOL 300 MG/ML 100ML BOTTLE IJ ONE; -METO25TA93 PO; -OMEP-434 PO; -PHEN1TAB38 PO; -UROJET2 MM
[2021-05-15] MEDS ORDERED: IOHEXOL 300 MG/ML 100ML BOTTLE IJ ONE (12:59)
[2021-05-15 14:01] LABS: Hepatitis B Surface Antibody Negative (Negative)
[2021-05-15 14:34] LABS: Hepatitis A Total Antibody Positive (Negative)
[2021-05-15] MEDS ORDERED: NILO150C PO (15:27)
[2021-05-15] MEDS ORDERED: CARISOPRODOL 350 MG TAB PO PRN (16:15)
[2021-05-15] MEDS ORDERED: PAIN RELIEF TOP PRN ×2 (16:15→16:45)
[2021-05-15] MEDS ORDERED: LIDOCAINE 4% TOP PRN ×2 (16:15→16:45)
[2021-05-15 16:20] LABS: Hepatitis C Antibody Negative (Negative)
[2021-05-15] MEDS ORDERED: IOHEXOL 350 MG/ML 100ML IJ ONE (17:19)
[2021-05-15] MEDS: ASCORBIC ACID 500 MG TAB PO SCH (21:56)
[2021-05-15] MEDS: ALPRAZolam 0.5 MG TAB PO PRN (21:56)
[2021-05-15] MEDS: GABAPENTIN 300 MG CAP PO SCH (21:56)
[2021-05-15] MEDS: APIXABAN 5 MG TAB PO SCH (21:56)
[2021-05-15] MEDS: ZINC GLUCONATE 50 MG PO SCH (22:00)
[2021-05-15] MEDS ORDERED: CHOLECALCIFEROL (VITD3) 2,000 UNIT CAP/TAB PO SCH (22:00)
[2021-05-16] MEDS: HYDROcodone-ACET 10/325MG TAB PO PRN ×2 (03:31→20:50)
[2021-05-16 05:00] VITALS: BP 125/72
[2021-05-16] MEDS: GABAPENTIN 300 MG CAP PO SCH ×3 (05:56→20:49)
[2021-05-16] MEDS: COENZYME Q10 300 MG PO SCH (08:37)
[2021-05-16] MEDS: ZINC GLUCONATE 50 MG PO SCH ×2 (08:37→22:00)
[2021-05-16] MEDS: FISH OIL 1400 MG PO SCH (08:37)
[2021-05-16] MEDS: SPIRONOLACTONE 25 MG TAB PO SCH (08:38)
[2021-05-16] MEDS: AMIODARONE HCL 200 MG TAB PO SCH (08:39)
[2021-05-16] MEDS: APIXABAN 5 MG TAB PO SCH ×2 (08:40→20:48)
[2021-05-16] MEDS: POTASSIUM CHL 20 Meq TABLET PO SCH (08:40)
[2021-05-16] MEDS: ATORVASTATIN 20 MG TAB PO SCH (08:41)
[2021-05-16] MEDS: FUROSEMIDE 40 MG TAB PO SCH (08:41)
[2021-05-16] MEDS: LEVOTHYROXINE SODIUM 100 MCG TAB PO SCH (08:42)
[2021-05-16] MEDS: ASCORBIC ACID 500 MG TAB PO SCH ×2 (08:42→20:50)
[2021-05-16] MEDS: CHOLECALCIFEROL (VITD3) 1,000UNIT=25mCg TAB PO SCH (08:43)
[2021-05-16 08:46] VITALS: BP 130/72
[2021-05-16 12:37] VITALS: BP 135/72
[2021-05-16 16:54] VITALS: BP 130/64
[2021-05-16] MEDS: DIGOXIN 0.125 MG TAB PO SCH (20:49)
[2021-05-16 22:00] VITALS: BP 131/69
[2021-05-17 05:00] VITALS: BP 111/69
[2021-05-17 06:28] LABS: Potassium 4.4 mmol/L (3.5-5.1)
[2021-05-17] MEDS: GABAPENTIN 300 MG CAP PO SCH ×3 (06:38→22:44)
[2021-05-17 06:49] LABS: BUN/Creatinine Ratio 14.8; Calcium 7.9 mg/dL (8.5-10.1)
[2021-05-17 09:00] VITALS: BP 124/72
[2021-05-17] MEDS: FISH OIL 1400 MG PO SCH (10:00)
[2021-05-17] MEDS: ZINC GLUCONATE 50 MG PO SCH ×2 (10:00→22:00)
[2021-05-17] MEDS: COENZYME Q10 300 MG PO SCH (10:00)
[2021-05-17] MEDS: APIXABAN 5 MG TAB PO SCH ×2 (10:43→22:41)
[2021-05-17] MEDS: ASCORBIC ACID 500 MG TAB PO SCH ×2 (10:43→22:44)
[2021-05-17] MEDS: CHOLECALCIFEROL (VITD3) 1,000UNIT=25mCg TAB PO SCH (10:45)
[2021-05-17] MEDS: LEVOTHYROXINE SODIUM 100 MCG TAB PO SCH (10:48)
[2021-05-17] MEDS: SPIRONOLACTONE 25 MG TAB PO SCH (10:49)
[2021-05-17] MEDS: POTASSIUM CHL 20 Meq TABLET PO SCH (10:50)
[2021-05-17] MEDS: AMIODARONE HCL 200 MG TAB PO SCH (10:50)
[2021-05-17] MEDS: FUROSEMIDE 40 MG TAB PO SCH (10:51)
[2021-05-17] MEDS: ATORVASTATIN 20 MG TAB PO SCH (10:51)
[2021-05-17 13:00] VITALS: BP 134/76
[2021-05-17 17:00] VITALS: BP 139/70
[2021-05-17 22:00] VITALS: BP 115/63
[2021-05-17] MEDS: DIGOXIN 0.125 MG TAB PO SCH (22:43)
[2021-05-17] MEDS: NEOMYCIN-BACITRACIN-POLYM 15GM TOP OINT TOP SCH (22:44)
[2021-05-17] MEDS: HYDROcodone-ACET 10/325MG TAB PO PRN (22:45)
[2021-05-18 05:00] VITALS: BP 119/67
[2021-05-18] MEDS: GABAPENTIN 300 MG CAP PO SCH ×3 (06:12→21:44)
[2021-05-18 09:12] VITALS: BP 143/61
[2021-05-18 10:46] LABS: INR 1.29 (0.9-1.15)
[2021-05-18 10:54] LABS: Calcium 7.9 mg/dL (8.5-10.1); Potassium 4.5 mmol/L (3.5-5.1)
[2021-05-18 10:57] LABS: BUN/Creatinine Ratio 15.7
[2021-05-18 11:01] LABS: Basophils # (auto) 0.1 10 ^3/uL (0-0.2); Basophils % (auto) 0.4 % (0.0-2.0); Eosinophils # (auto) 0.1 10 ^3/uL (0-0.8); Eosinophils % (auto) 0.6 % (0.0-7.0); Hematocrit 40.9 % (41.0-53.0); Hemoglobin 13.4 g/dL (13.5-17.5); Lymphocytes # (auto) 1.2 10 ^3/uL (0.4-5.4); Lymphocytes % (auto) 9.6 % (10.0-50.0); Mean Corpuscular Hemoglobin 29.7 pg (28.0-32.0); Mean Corpuscular Hgb Conc. 32.7 g/dL (32.0-36.0); Monocytes # (auto) 0.6 10 ^3/uL (0-1.3); Neutrophils # (auto) 10.2 10 ^3/uL (1.6-8.6); Neutrophils % (auto) 84.4 % (37.0-80.0); Red Cell Distribution Width 17.5 % (11.8-14.3); White Blood Cell 12.1 10^3/uL (4.4-10.8)
[2021-05-18] MEDS: SPIRONOLACTONE 25 MG TAB PO SCH (11:05)
[2021-05-18] MEDS: POTASSIUM CHL 20 Meq TABLET PO SCH (11:06)
[2021-05-18] MEDS: AMIODARONE HCL 200 MG TAB PO SCH (11:07)
[2021-05-18] MEDS: FUROSEMIDE 40 MG TAB PO SCH (11:08)
[2021-05-18] MEDS: LEVOTHYROXINE SODIUM 100 MCG TAB PO SCH (11:08)
[2021-05-18] MEDS: ASCORBIC ACID 500 MG TAB PO SCH ×2 (11:09→21:44)
[2021-05-18] MEDS: APIXABAN 5 MG TAB PO SCH (11:09)
[2021-05-18] MEDS: ATORVASTATIN 20 MG TAB PO SCH (11:09)
[2021-05-18] MEDS: CHOLECALCIFEROL (VITD3) 1,000UNIT=25mCg TAB PO SCH (11:09)
[2021-05-18] MEDS: COENZYME Q10 300 MG PO SCH (11:10)
[2021-05-18] MEDS: FISH OIL 1400 MG PO SCH (11:13)
[2021-05-18] MEDS: ZINC GLUCONATE 50 MG PO SCH ×2 (11:14→22:00)
[2021-05-18] MEDS: NEOMYCIN-BACITRACIN-POLYM 15GM TOP OINT TOP SCH ×2 (11:14→21:44)
[2021-05-18 14:34] VITALS: BP 143/75
[2021-05-18 16:56] VITALS: BP 103/56
[2021-05-18 18:32] LABS: INR 1.27 (0.9-1.15); Partial Thromboplastin Time 33.9 sec (23.6-33.0)
[2021-05-18] MEDS: HYDROcodone-ACET 10/325MG TAB PO PRN (21:01)
[2021-05-18] MEDS: DIGOXIN 0.125 MG TAB PO SCH (21:44)
[2021-05-18 22:00] VITALS: BP 106/44
[2021-05-19 05:00] VITALS: BP 101/66
[2021-05-19 05:56] LABS: Basophils # (auto) 0.1 10 ^3/uL (0-0.2); Basophils % (auto) 0.8 % (0.0-2.0); Eosinophils # (auto) 0.1 10 ^3/uL (0-0.8); Hemoglobin 12.5 g/dL (13.5-17.5); Lymphocytes % (auto) 12.1 % (10.0-50.0); Monocytes # (auto) 0.6 10 ^3/uL (0-1.3); Neutrophils % (auto) 79.1 % (37.0-80.0)
[2021-05-19 05:58] LABS: Eosinophils % (auto) 1.1 % (0.0-7.0); Hematocrit 38.4 % (41.0-53.0); Mean Corpuscular Hemoglobin 29.3 pg (28.0-32.0); Mean Corpuscular Hgb Conc. 32.6 g/dL (32.0-36.0); Mean Corpuscular Volume 89.7 fL (80.0-100.0); Monocytes % (auto) 6.9 % (0.0-12.0); Neutrophils # (auto) 6.8 10 ^3/uL (1.6-8.6); Red Blood Cells 4.28 10^6/uL (4.5-5.90); Red Cell Distribution Width 17.1 % (11.8-14.3); White Blood Cell 8.6 10^3/uL (4.4-10.8)
[2021-05-19] MEDS: GABAPENTIN 300 MG CAP PO SCH ×3 (06:13→21:35)
[2021-05-19 06:18] LABS: Albumin 2.4 g/dL (3.4-5.0); Potassium 4.4 mmol/L (3.5-5.1)
[2021-05-19 06:23] LABS: BUN/Creatinine Ratio 14.6; Bilirubin, Total 0.6 mg/dL (0.2-1.0); Total Protein 5.7 g/dL (6.4-8.2)
[2021-05-19] MEDS ORDERED: IOHEXOL 300 MG/ML 100ML BOTTLE IJ ONE ×2 (07:37→17:29)
[2021-05-19 09:00] VITALS: BP 140/72
[2021-05-19] MEDS: ATORVASTATIN 20 MG TAB PO SCH (09:55)
[2021-05-19] MEDS: LEVOTHYROXINE SODIUM 100 MCG TAB PO SCH (09:57)
[2021-05-19] MEDS: AMIODARONE HCL 200 MG TAB PO SCH (09:57)
[2021-05-19] MEDS: SPIRONOLACTONE 25 MG TAB PO SCH (09:58)
[2021-05-19] MEDS: FUROSEMIDE 40 MG TAB PO SCH (09:58)
[2021-05-19] MEDS: POTASSIUM CHL 20 Meq TABLET PO SCH (09:58)
[2021-05-19] MEDS: COENZYME Q10 300 MG PO SCH (09:59)
[2021-05-19] MEDS: FISH OIL 1400 MG PO SCH (09:59)
[2021-05-19] MEDS: CHOLECALCIFEROL (VITD3) 1,000UNIT=25mCg TAB PO SCH (10:00)
[2021-05-19] MEDS: ZINC GLUCONATE 50 MG PO SCH ×2 (10:00→21:45)
[2021-05-19] MEDS: ASCORBIC ACID 500 MG TAB PO SCH ×2 (10:00→21:35)
[2021-05-19] MEDS: NEOMYCIN-BACITRACIN-POLYM 15GM TOP OINT TOP SCH ×2 (10:01→21:35)
[2021-05-19 12:16] LABS: Hepatitis B Surface Antibody Negative (Negative)
[2021-05-19 12:44] LABS: Hepatitis A Total Antibody Positive (Negative)
[2021-05-19 13:00] VITALS: BP 126/71
[2021-05-19 13:49] LABS: Hepatitis C Antibody Negative (Negative)
[2021-05-19 17:00] VITALS: BP 145/78
[2021-05-19] MEDS: HYDROcodone-ACET 10/325MG TAB PO PRN (19:57)
[2021-05-19] MEDS: DIGOXIN 0.125 MG TAB PO SCH (21:35)
[2021-05-19 22:00] VITALS: BP 117/65
[2021-05-20] MEDS: GABAPENTIN 300 MG CAP PO SCH ×3 (06:15→22:14)
[2021-05-20] MEDS ORDERED: IOHEXOL 350 MG/ML 100ML IJ ONE (08:45)
[2021-05-20 09:00] VITALS: BP 109/65
[2021-05-20] MEDS: ZINC GLUCONATE 50 MG PO SCH ×2 (10:00→22:00)
[2021-05-20] MEDS: FUROSEMIDE 40 MG TAB PO SCH (10:00)
[2021-05-20] MEDS: FISH OIL 1400 MG PO SCH (10:00)
[2021-05-20] MEDS: COENZYME Q10 300 MG PO SCH (10:00)
[2021-05-20] MEDS: SPIRONOLACTONE 25 MG TAB PO SCH (11:02)
[2021-05-20] MEDS: AMIODARONE HCL 200 MG TAB PO SCH (11:06)
[2021-05-20] MEDS: POTASSIUM CHL 20 Meq TABLET PO SCH (11:06)
[2021-05-20] MEDS: LEVOTHYROXINE SODIUM 100 MCG TAB PO SCH (11:07)
[2021-05-20] MEDS: NEOMYCIN-BACITRACIN-POLYM 15GM TOP OINT TOP SCH ×2 (11:08→22:14)
[2021-05-20] MEDS: CHOLECALCIFEROL (VITD3) 1,000UNIT=25mCg TAB PO SCH (11:08)
[2021-05-20] MEDS: ASCORBIC ACID 500 MG TAB PO SCH ×2 (11:08→22:14)
[2021-05-20] MEDS: ATORVASTATIN 20 MG TAB PO SCH (11:12)
[2021-05-20 13:00] VITALS: BP 124/98
[2021-05-20] MEDS: HYDROcodone-ACET 10/325MG TAB PO PRN ×2 (15:37→22:18)
[2021-05-20 16:16] VITALS: BP 132/65
[2021-05-20 21:40] VITALS: BP 129/69
[2021-05-20] MEDS: DIGOXIN 0.125 MG TAB PO SCH (22:14)
[2021-05-21] VITALS (9 sets, daily range): BP systolic 111–134; BP diastolic 64–71
[2021-05-21] MEDS: GABAPENTIN 300 MG CAP PO SCH ×3 (06:04→21:16)
[2021-05-21] MEDS: FISH OIL 1400 MG PO SCH (10:00)
[2021-05-21] MEDS: ZINC GLUCONATE 50 MG PO SCH ×2 (10:00→21:24)
[2021-05-21] MEDS: COENZYME Q10 300 MG PO SCH (10:00)
[2021-05-21] MEDS: ASCORBIC ACID 500 MG TAB PO SCH ×2 (10:00→21:17)
[2021-05-21] MEDS: SPIRONOLACTONE 25 MG TAB PO SCH (10:11)
[2021-05-21] MEDS: POTASSIUM CHL 20 Meq TABLET PO SCH (10:11)
[2021-05-21] MEDS: AMIODARONE HCL 200 MG TAB PO SCH (10:11)
[2021-05-21] MEDS: ATORVASTATIN 20 MG TAB PO SCH (10:13)
[2021-05-21] MEDS: FUROSEMIDE 40 MG TAB PO SCH (10:13)
[2021-05-21] MEDS: LEVOTHYROXINE SODIUM 100 MCG TAB PO SCH (10:13)
[2021-05-21] MEDS: CHOLECALCIFEROL (VITD3) 1,000UNIT=25mCg TAB PO SCH (10:14)
[2021-05-21] MEDS: NEOMYCIN-BACITRACIN-POLYM 15GM TOP OINT TOP SCH ×2 (10:14→21:17)
[2021-05-21 15:05] LABS: Basophils # (auto) 0.1 10 ^3/uL (0-0.2); Eosinophils # (auto) 0.1 10 ^3/uL (0-0.8); Eosinophils % (auto) 0.7 % (0.0-7.0); Hemoglobin 13.2 g/dL (13.5-17.5); Monocytes # (auto) 0.6 10 ^3/uL (0-1.3)
[2021-05-21 15:06] LABS: Basophils % (auto) 0.5 % (0.0-2.0); Hematocrit 40.6 % (41.0-53.0); Mean Corpuscular Hemoglobin 29.5 pg (28.0-32.0); Mean Corpuscular Hgb Conc. 32.5 g/dL (32.0-36.0); Mean Corpuscular Volume 90.9 fL (80.0-100.0); Monocytes % (auto) 5.6 % (0.0-12.0); Neutrophils # (auto) 8.3 10 ^3/uL (1.6-8.6); Neutrophils % (auto) 83.2 % (37.0-80.0); Nucleated Red Blood Cells % 0.1 %; Red Blood Cells 4.47 10^6/uL (4.5-5.90); Red Cell Distribution Width 17.9 % (11.8-14.3)
[2021-05-21 15:26] LABS: INR 1.2 (0.9-1.15); Partial Thromboplastin Time 31.7 sec (23.6-33.0)
[2021-05-21] MEDS: DIGOXIN 0.125 MG TAB PO SCH (21:16)
[2021-05-22 01:12] VITALS: BP 116/65
[2021-05-22] MEDS: ALPRAZolam 0.5 MG TAB PO PRN (02:22)
[2021-05-22 05:00] VITALS: BP 107/60
[2021-05-22 05:29] LABS: Basophils # (auto) 0.1 10 ^3/uL (0-0.2); Basophils % (auto) 0.9 % (0.0-2.0); Eosinophils # (auto) 0.1 10 ^3/uL (0-0.8); Eosinophils % (auto) 1.5 % (0.0-7.0); Hematocrit 35.1 % (41.0-53.0); Hemoglobin 11.8 g/dL (13.5-17.5); Lymphocytes # (auto) 1.1 10 ^3/uL (0.4-5.4); Lymphocytes % (auto) 17.1 % (10.0-50.0); Mean Corpuscular Hemoglobin 30.5 pg (28.0-32.0); Mean Corpuscular Hgb Conc. 33.7 g/dL (32.0-36.0); Mean Corpuscular Volume 90.6 fL (80.0-100.0); Monocytes # (auto) 0.5 10 ^3/uL (0-1.3); Monocytes % (auto) 7.3 % (0.0-12.0); Neutrophils # (auto) 4.7 10 ^3/uL (1.6-8.6); Neutrophils % (auto) 73.2 % (37.0-80.0); Nucleated Red Blood Cells % 0.1 %; Red Blood Cells 3.87 10^6/uL (4.5-5.90); Red Cell Distribution Width 17.2 % (11.8-14.3); White Blood Cell 6.5 10^3/uL (4.4-10.8)
[2021-05-22] MEDS: GABAPENTIN 300 MG CAP PO SCH ×2 (06:41→11:40)
[2021-05-22] MEDS: COENZYME Q10 300 MG PO SCH (10:00)
[2021-05-22] MEDS: FISH OIL 1400 MG PO SCH (10:00)
[2021-05-22] MEDS: ZINC GLUCONATE 50 MG PO SCH (10:00)
[2021-05-22] MEDS: ASCORBIC ACID 500 MG TAB PO SCH (11:37)
[2021-05-22] MEDS: ATORVASTATIN 20 MG TAB PO SCH (11:37)
[2021-05-22] MEDS: POTASSIUM CHL 20 Meq TABLET PO SCH (11:38)
[2021-05-22] MEDS: SPIRONOLACTONE 25 MG TAB PO SCH (11:40)
[2021-05-22] MEDS: FUROSEMIDE 40 MG TAB PO SCH (11:40)
[2021-05-22] MEDS: DIGOXIN 0.125 MG TAB PO SCH (11:41)
[2021-05-22] MEDS: CHOLECALCIFEROL (VITD3) 1,000UNIT=25mCg TAB PO SCH (11:42)
[2021-05-22] MEDS: AMIODARONE HCL 200 MG TAB PO SCH (11:42)
[2021-05-22] MEDS: LEVOTHYROXINE SODIUM 100 MCG TAB PO SCH (11:42)
[2021-05-22 16:16] VITALS: BP 105/59
[2021-05-22] MEDS: NEOMYCIN-BACITRACIN-POLYM 15GM TOP OINT TOP SCH (18:35)
== END 2021-05-22 18:36 | disposition home or self-care (01) | DRG 432 ==
LOC: CATH 08:47 → OVERFLOW 11:25 → CENTRAL 17:13
PROVIDERS: ADMIT Internal Medicine Cardiovascular Disease; ATTEND Internal Medicine Cardiovascular Disease
PROC: 0W9G3ZZ Drainage of Peritoneal Cavity, Percutaneous Approach (ICD-10-PCS; principal; 2021-05-15)
PROC: 30233R1 Transfusion of Nonautologous Platelets into Peripheral Vein, Percutaneous Approach (ICD-10-PCS; 2021-05-21)
DX: K74.69 Other cirrhosis of liver (principal); J18.9 Pneumonia, unspecified organism; G93.41 Metabolic encephalopathy; R18.8 Other ascites; I50.22 Chronic systolic (congestive) heart failure; C92.10 Chronic myeloid leukemia, BCR/ABL-positive, not having achieved remission; J98.11 Atelectasis; D61.818 Other pancytopenia; N13.30 Unspecified hydronephrosis; E44.0 Moderate protein-calorie malnutrition; R16.2 Hepatomegaly with splenomegaly, not elsewhere classified; U09.9 Post COVID-19 condition, unspecified; K72.90 Hepatic failure, unspecified without coma; I25.10 Atherosclerotic heart disease of native coronary artery without angina pectoris; I48.91 Unspecified atrial fibrillation; F41.9 Anxiety disorder, unspecified; N13.9 Obstructive and reflux uropathy, unspecified; R33.8 Other retention of urine; I70.0 Atherosclerosis of aorta; Z79.01 Long term (current) use of anticoagulants; Z79.899 Other long term (current) drug therapy; Z80.42 Family history of malignant neoplasm of prostate; Z85.828 Personal history of other malignant neoplasm of skin; Z87.891 Personal history of nicotine dependence; Z95.0 Presence of cardiac pacemaker; Z95.5 Presence of coronary angioplasty implant and graft
CPT/HCPCS: 36415; 49082; 71046; 74177; 76700; 78707; 80048; 80053; 82105; 82728; 85025; 85610; 85730; 86038; 86704; 86706; 86708; 86803; 86850; 86900; 86901; 87205; 87340; 89051; 93005; 99152; G0378; G0463

== ENCOUNTER → 2021-05-26 | Outpatient (CLI) | payer MEDICARE, OTHER ==
[2021-05-26 16:01] LABS: Calcium 8.3 mg/dL (8.5-10.1); Potassium 3.9 mmol/L (3.5-5.1)
[2021-05-26 16:03] LABS: BUN/Creatinine Ratio 16.7
[2021-05-26 16:09] LABS: Basophils # (auto) 0.1 10 ^3/uL (0-0.2); Basophils % (auto) 0.9 % (0.0-2.0); Eosinophils # (auto) 0.1 10 ^3/uL (0-0.8); Hematocrit 39.2 % (41.0-53.0); Hemoglobin 12.5 g/dL (13.5-17.5); Lymphocytes # (auto) 0.9 10 ^3/uL (0.4-5.4); Lymphocytes % (auto) 11.3 % (10.0-50.0); Mean Corpuscular Hemoglobin 29.5 pg (28.0-32.0); Mean Corpuscular Hgb Conc. 31.9 g/dL (32.0-36.0); Mean Corpuscular Volume 92.2 fL (80.0-100.0); Monocytes # (auto) 0.6 10 ^3/uL (0-1.3); Neutrophils # (auto) 6.3 10 ^3/uL (1.6-8.6); Neutrophils % (auto) 78.8 % (37.0-80.0); Nucleated Red Blood Cells % 0.1 %; Red Blood Cells 4.25 10^6/uL (4.5-5.90); Red Cell Distribution Width 18.6 % (11.8-14.3)
== END | disposition home or self-care (01) ==
LOC: LAB 11:41
PROVIDERS: ATTEND Internal Medicine Cardiovascular Disease
DX: D64.9 Anemia, unspecified (principal)
CPT/HCPCS: 36415; 80048; 85025

== ENCOUNTER 2021-06-09 12:05 | Day surgery (SDC) | payer MEDICARE, OTHER ==
[~2021-06-09] VITALS: Ht 177.8 cm; Wt 97.7 kg
[2021-06-09] MEDS ORDERED: LIDOCAINE 2%HCL (LOCAL ANESTH.) INJ 20ML MDV ONE (12:14)
[2021-06-09] MEDS ORDERED: fentaNYL CITRATE 100 MCG/2 ML VL IV ONE (13:15)
[2021-06-09] MEDS ORDERED: MIDAZOLAM HCL 2MG/2ML 2ml VIAL (1mg/ml) IV ONE (13:15)
== END 2021-06-09 15:45 | disposition home or self-care (01) ==
LOC: CATH 12:05
PROVIDERS: ATTEND Internal Medicine Cardiovascular Disease
DX: R18.8 Other ascites (principal); I20.9 Angina pectoris, unspecified; J43.9 Emphysema, unspecified; F41.9 Anxiety disorder, unspecified; F32.9 Major depressive disorder, single episode, unspecified; I50.9 Heart failure, unspecified; I48.91 Unspecified atrial fibrillation; Z81.8 Family history of other mental and behavioral disorders; Z87.891 Personal history of nicotine dependence; Z80.42 Family history of malignant neoplasm of prostate; Z20.822 Contact with and (suspected) exposure to COVID-19
CPT/HCPCS: 36415; 49083; 87426; J2250; J7040; 99152

== ENCOUNTER 2021-06-11 15:10 | Emergency (ER) | payer MEDICARE, OTHER ==
[~2021-06-11] VITALS: Ht 177.8 cm; Wt 95.3 kg
[2021-06-11 16:35] LABS: Basophils # (auto) 0 10 ^3/uL (0-0.2); Basophils % (auto) 0.3 % (0.0-2.0); Eosinophils # (auto) 0 10 ^3/uL (0-0.8); Monocytes # (auto) 0.6 10 ^3/uL (0-1.3)
[2021-06-11 16:37] LABS: Hematocrit 37.3 % (41.0-53.0); Hemoglobin 12.7 g/dL (13.5-17.5); Lymphocytes # (auto) 0.5 10 ^3/uL (0.4-5.4); Lymphocytes % (auto) 4.6 % (10.0-50.0); Mean Corpuscular Hemoglobin 31.1 pg (28.0-32.0); Mean Corpuscular Hgb Conc. 34.1 g/dL (32.0-36.0); Mean Corpuscular Volume 91.3 fL (80.0-100.0); Monocytes % (auto) 6.2 % (0.0-12.0); Neutrophils # (auto) 8.8 10 ^3/uL (1.6-8.6); Neutrophils % (auto) 88.9 % (37.0-80.0); Nucleated Red Blood Cells % 0.1 %; Red Blood Cells 4.09 10^6/uL (4.5-5.90); Red Cell Distribution Width 17.6 % (11.8-14.3); White Blood Cell 9.9 10^3/uL (4.4-10.8)
[2021-06-11 17:04] LABS: Albumin 2.4 g/dL (3.4-5.0); Calcium 7.7 mg/dL (8.5-10.1); Potassium 4.7 mmol/L (3.5-5.1)
[2021-06-11 17:06] LABS: BUN/Creatinine Ratio 16.2
[2021-06-11 17:09] LABS: Total Protein 5.6 g/dL (6.4-8.2)
[2021-06-11 20:17] LABS: Urine Amorphous Crystal FEW /hpf (None Seen); Urine Bacteria MOD /hpf (None Seen); Urine Blood TRACE /uL (Negative); Urine Mucus FEW (None Seen); Urine Specific Gravity 1.017 (1.001-1.035); Urine WBC 35 /hpf (0 - 3)
[2021-06-11 23:00] VITALS: BP 128/71
== END 2021-06-11 23:00 | disposition home or self-care (01) ==
LOC: ER 15:10
DX: N39.0 Urinary tract infection, site not specified (principal); R33.9 Retention of urine, unspecified
CPT/HCPCS: 36415; 51702; 80053; 81001; 83605; 85025; 87040

== ENCOUNTER → 2021-06-16 | Outpatient (CLI) | payer MEDICARE, OTHER ==
[2021-06-16 15:25] LABS: Urine Blood TRACE /uL (Negative); Urine Specific Gravity 1.014 (1.001-1.035)
== END | disposition home or self-care (01) ==
LOC: LAB 13:10
PROVIDERS: ATTEND Internal Medicine Cardiovascular Disease
DX: N39.0 Urinary tract infection, site not specified (principal)
CPT/HCPCS: 81003; 87086

== ENCOUNTER 2021-07-01 14:30 | Emergency (ER) | payer MEDICARE, OTHER ==
[~2021-07-01] VITALS: Ht 177.8 cm; Wt 90.7 kg
[2021-07-01 14:41] VITALS: BP 133/47
[2021-07-01 15:40] LABS: Albumin 2.6 g/dL (3.4-5.0); BUN/Creatinine Ratio 12.7; Calcium 8.3 mg/dL (8.5-10.1); Potassium 3.8 mmol/L (3.5-5.1)
[2021-07-01 15:43] LABS: Bilirubin, Total 0.8 mg/dL (0.2-1.0)
[2021-07-01 15:52] LABS: Basophils # (auto) 0 10 ^3/uL (0-0.2); Basophils % (auto) 0.5 % (0.0-2.0); Eosinophils # (auto) 0.1 10 ^3/uL (0-0.8); Eosinophils % (auto) 0.8 % (0.0-7.0); Hematocrit 35.3 % (41.0-53.0); Hemoglobin 11.7 g/dL (13.5-17.5); Lymphocytes % (auto) 12.3 % (10.0-50.0); Mean Corpuscular Hemoglobin 30.4 pg (28.0-32.0); Mean Corpuscular Hgb Conc. 33.2 g/dL (32.0-36.0); Mean Corpuscular Volume 91.5 fL (80.0-100.0); Monocytes # (auto) 0.6 10 ^3/uL (0-1.3); Monocytes % (auto) 7.7 % (0.0-12.0); Neutrophils # (auto) 6.4 10 ^3/uL (1.6-8.6); Neutrophils % (auto) 78.7 % (37.0-80.0); Red Blood Cells 3.86 10^6/uL (4.5-5.90); Red Cell Distribution Width 17.3 % (11.8-14.3); White Blood Cell 8.1 10^3/uL (4.4-10.8)
[2021-07-01 16:22] LABS: INR 1.16 (0.9-1.15); Partial Thromboplastin Time 33.7 sec (23.6-33.0)
== END 2021-07-01 16:00 | disposition left against medical advice (07) ==
LOC: ER 14:30
DX: R18.8 Other ascites (principal); K75.0 Abscess of liver; I12.9 Hypertensive chronic kidney disease with stage 1 through stage 4 chronic kidney disease, or unspecified chronic kidney disease; N18.9 Chronic kidney disease, unspecified; E78.5 Hyperlipidemia, unspecified; I48.91 Unspecified atrial fibrillation; Z90.89 Acquired absence of other organs; Z95.0 Presence of cardiac pacemaker; Z79.899 Other long term (current) drug therapy
CPT/HCPCS: 36415; 74176; 80053; 83690; 85025; 85610; 85730

== ENCOUNTER → 2021-07-02 | Outpatient (CLI) | payer MEDICARE, OTHER | END | disposition home or self-care (01) | LOC: XYW 08:47 | PROVIDERS: ATTEND Internal Medicine Cardiovascular Disease | DX: R18.8 Other ascites (principal) | CPT/HCPCS: 76700; 76942; C1729 ==

== ENCOUNTER → 2021-07-14 | Outpatient (CLI) | payer MEDICARE, OTHER ==
[2021-07-14 15:12] LABS: Hemoglobin 12.5 g/dL (13.5-17.5); Mean Corpuscular Volume 93.1 fL (80.0-100.0); Nucleated Red Blood Cells % 0.2 %
[2021-07-14 15:14] LABS: Basophils # (auto) 0.3 10 ^3/uL (0-0.2); Eosinophils # (auto) 0.2 10 ^3/uL (0-0.8); Eosinophils % (auto) 1.7 % (0.0-7.0); Hematocrit 38.3 % (41.0-53.0); Lymphocytes # (auto) 1.2 10 ^3/uL (0.4-5.4); Lymphocytes % (auto) 10.6 % (10.0-50.0); Mean Corpuscular Hemoglobin 30.4 pg (28.0-32.0); Mean Corpuscular Hgb Conc. 32.6 g/dL (32.0-36.0); Monocytes # (auto) 0.8 10 ^3/uL (0-1.3); Monocytes % (auto) 6.7 % (0.0-12.0); Red Blood Cells 4.11 10^6/uL (4.5-5.90); Red Cell Distribution Width 17.8 % (11.8-14.3); White Blood Cell 11.6 10^3/uL (4.4-10.8)
[2021-07-14 16:25] LABS: INR 1.16 (0.9-1.15); Partial Thromboplastin Time 32.2 sec (23.6-33.0)
== END | disposition home or self-care (01) ==
LOC: LAB 13:26
PROVIDERS: ATTEND Internal Medicine Cardiovascular Disease
DX: R79.1 Abnormal coagulation profile (principal)
CPT/HCPCS: 36415; 85025; 85610; 85730

== ENCOUNTER → 2021-07-15 | Outpatient (CLI) | payer MEDICARE, OTHER | END | disposition home or self-care (01) | LOC: US 10:27 | PROVIDERS: ATTEND Internal Medicine Cardiovascular Disease | DX: R18.8 Other ascites (principal); I20.9 Angina pectoris, unspecified; F41.9 Anxiety disorder, unspecified; F32.9 Major depressive disorder, single episode, unspecified; J43.9 Emphysema, unspecified; Z80.42 Family history of malignant neoplasm of prostate; Z81.8 Family history of other mental and behavioral disorders | CPT/HCPCS: 49083; 76700; 76942; C1729 ==

== ENCOUNTER 2021-07-24 08:20 | Day surgery (SDC) | payer MEDICARE, OTHER ==
[~2021-07-24] VITALS: Ht 177.8 cm; Wt 88.5 kg
[2021-07-24] VITALS (20 sets, daily range): BP systolic 110–133; BP diastolic 55–71
[2021-07-24] MEDS ORDERED: fentaNYL CITRATE 100 MCG/2 ML VL ONE (11:03)
[2021-07-24] MEDS ORDERED: CEFTRIAXONE SODIUM 2 GM in D5W 5% 50 ML IV ONE (12:00)
== END 2021-07-24 14:30 | disposition home or self-care (01) ==
LOC: CATH 08:20
PROVIDERS: ATTEND Internal Medicine Cardiovascular Disease
DX: R18.8 Other ascites (principal); K76.6 Portal hypertension; I25.119 Atherosclerotic heart disease of native coronary artery with unspecified angina pectoris; F41.9 Anxiety disorder, unspecified; F32.9 Major depressive disorder, single episode, unspecified; J43.9 Emphysema, unspecified; I49.5 Sick sinus syndrome; I48.91 Unspecified atrial fibrillation; Z86.16 Personal history of COVID-19; Z95.5 Presence of coronary angioplasty implant and graft; Z81.8 Family history of other mental and behavioral disorders; Z80.42 Family history of malignant neoplasm of prostate; Z85.6 Personal history of leukemia; Z87.891 Personal history of nicotine dependence
CPT/HCPCS: 49083; J0696; J3010; J7030; J7060; 99152

== ENCOUNTER 2021-07-29 13:00 | Emergency (ER) | payer MEDICARE, OTHER ==
[~2021-07-29] VITALS: Ht 177.8 cm; Wt 87.5 kg
[2021-07-29 15:20] LABS: Albumin 2.4 g/dL (3.4-5.0); Calcium 8.3 mg/dL (8.5-10.1); Potassium 5.1 mmol/L (3.5-5.1)
[2021-07-29 15:25] LABS: BUN/Creatinine Ratio 23.6
[2021-07-29 20:18] VITALS: BP 114/52
[2021-07-30] MEDS ORDERED: POTA1TAB4 PO (11:49)
[2021-07-30] MEDS ORDERED: COEN300C PO (11:49)
== END 2021-07-29 21:16 | disposition home or self-care (01) ==
LOC: ER 13:00
DX: R18.8 Other ascites (principal); I48.91 Unspecified atrial fibrillation; I25.10 Atherosclerotic heart disease of native coronary artery without angina pectoris; E78.5 Hyperlipidemia, unspecified; I12.9 Hypertensive chronic kidney disease with stage 1 through stage 4 chronic kidney disease, or unspecified chronic kidney disease; N18.9 Chronic kidney disease, unspecified; Z95.0 Presence of cardiac pacemaker; Z90.89 Acquired absence of other organs; Z87.891 Personal history of nicotine dependence; Z79.899 Other long term (current) drug therapy
CPT/HCPCS: 36415; 74176; 80053; 93005

== ENCOUNTER → 2021-07-30 | Outpatient (CLI) | payer MEDICARE, OTHER ==
[~2021-07-30] MED LIST changes: +BACITRACIN TOP OINT 1 UD PKG TOP ONE; +COEN300C PO; +POTA1TAB4 PO
[2021-07-30 11:40] VITALS: BP 125/56
[2021-07-30 12:06] VITALS: BP 129/60
[2021-07-30 15:34] LABS: BUN/Creatinine Ratio 23.1; Calcium 7.9 mg/dL (8.5-10.1); Potassium 5.2 mmol/L (3.5-5.1)
[2021-07-30 15:35] LABS: Basophils # (auto) 0.1 10 ^3/uL (0-0.2); Eosinophils # (auto) 0.1 10 ^3/uL (0-0.8); Eosinophils % (auto) 1.2 % (0.0-7.0); Monocytes # (auto) 0.7 10 ^3/uL (0-1.3); Neutrophils % (auto) 78.8 % (37.0-80.0); Nucleated Red Blood Cells % 0.1 %
[2021-07-30 15:38] LABS: Hematocrit 36.7 % (41.0-53.0); Hemoglobin 12.1 g/dL (13.5-17.5); Lymphocytes # (auto) 1.4 10 ^3/uL (0.4-5.4); Lymphocytes % (auto) 12.7 % (10.0-50.0); Mean Corpuscular Hemoglobin 31.5 pg (28.0-32.0); Mean Corpuscular Hgb Conc. 32.9 g/dL (32.0-36.0); Mean Corpuscular Volume 95.6 fL (80.0-100.0); Monocytes % (auto) 6.3 % (0.0-12.0); Neutrophils # (auto) 8.4 10 ^3/uL (1.6-8.6); Red Blood Cells 3.84 10^6/uL (4.5-5.90); Red Cell Distribution Width 18.4 % (11.8-14.3); White Blood Cell 10.7 10^3/uL (4.4-10.8)
[2021-07-30 15:57] LABS: INR 1.14 (0.9-1.15); Partial Thromboplastin Time 31.7 sec (23.6-33.0)
== END | disposition home or self-care (01) ==
LOC: Rad HDHVI 11:13
PROVIDERS: ATTEND Internal Medicine Cardiovascular Disease
DX: Z01.812 Encounter for preprocedural laboratory examination (principal); I70.0 Atherosclerosis of aorta; M47.814 Spondylosis without myelopathy or radiculopathy, thoracic region; Z79.01 Long term (current) use of anticoagulants
CPT/HCPCS: 36415; 71046; 80048; 85025; 85610; 85730; 93005; G0463

== ENCOUNTER → 2021-07-31 | Outpatient (CLI) | payer MEDICARE, OTHER ==
[~2021-07-31] MED LIST changes: -BACITRACIN TOP OINT 1 UD PKG TOP ONE; -COEN100C30 PO; -POTA10TA51 PO
== END | disposition home or self-care (01) ==
LOC: XYW 12:33
PROVIDERS: ATTEND Internal Medicine Cardiovascular Disease
DX: R18.8 Other ascites (principal); J43.9 Emphysema, unspecified; F41.9 Anxiety disorder, unspecified; F32.9 Major depressive disorder, single episode, unspecified; Z80.42 Family history of malignant neoplasm of prostate; Z87.891 Personal history of nicotine dependence; Z81.8 Family history of other mental and behavioral disorders
CPT/HCPCS: 49083; 76705; 76942; C1729

== ENCOUNTER 2021-08-04 06:54 | Inpatient (IN) | payer MEDICARE, OTHER ==
[2021-08-04] VITALS (10 sets, daily range): BP systolic 97–143; BP diastolic 56–81
[~2021-08-04] VITALS: Ht 177.8 cm; Wt 75.9 kg
[2021-08-04 09:48] LABS: BUN/Creatinine Ratio 24.7; Calcium 8.2 mg/dL (8.5-10.1)
[2021-08-04 09:54] LABS: Potassium 6.7 mmol/L (3.5-5.1)
[2021-08-04] MEDS ORDERED: SODIUM CHLORIDE 0.9% 500 ML IV ONE (10:00)
[2021-08-04] MEDS ORDERED: FUROSEMIDE 40 MG/4 ML VIAL IV ONE (10:00)
[2021-08-04] MEDS ORDERED: FUROSEMIDE 20 MG/2 ML VIAL ONE (10:09)
[2021-08-04] MEDS ORDERED: HYDROcodone-ACET 10/325MG TAB PO PRN (10:45)
[2021-08-04] MEDS ORDERED: SODIUM ZIRCONIUM CYCL 10 GM PAK PO ONE (14:15)
[2021-08-04] MEDS ORDERED: NITROGLYCERIN 0.4 MG SL TAB SL PRN ×2 (14:15→23:00)
[2021-08-04] MEDS ORDERED: CARISOPRODOL 350 MG TAB PO PRN ×2 (14:15→23:00)
[2021-08-04] MEDS ORDERED: ALPRAZolam 0.5 MG TAB PO PRN ×2 (14:15→23:00)
[2021-08-04] MEDS ORDERED: MORPHINE SULFATE INJECTION 2 MG/ML SYRG IV PRN ×2 (14:15→23:00)
[2021-08-04] MEDS ORDERED: DIGOXIN 0.125 MG TAB PO SCH (22:00)
[2021-08-04] MEDS ORDERED: GABAPENTIN 300 MG CAP PO SCH (22:00)
[2021-08-05] MEDS: HYDROcodone-ACET 10/325MG TAB PO PRN ×3 (00:30→21:20)
[2021-08-05] MEDS: GABAPENTIN 300 MG CAP PO SCH ×2 (00:30→21:14)
[2021-08-05 05:56] VITALS: BP 138/72
[2021-08-05] MEDS: LEVOTHYROXINE SODIUM 100 MCG TAB PO SCH (06:38)
[2021-08-05] MEDS ORDERED: LEVOTHYROXINE SODIUM 100 MCG TAB PO SCH (07:00)
[2021-08-05] MEDS ORDERED: DIGOXIN 0.125 MG TAB PO SCH (07:00)
[2021-08-05 07:02] LABS: BUN/Creatinine Ratio 33.3; Calcium 8.5 mg/dL (8.5-10.1)
[2021-08-05 08:10] LABS: Potassium 6.3 mmol/L (3.5-5.1)
[2021-08-05 09:00] VITALS: BP 157/64
[2021-08-05] MEDS ORDERED: SODIUM ZIRCONIUM CYCL 10 GM PAK PO ONE ×2 (09:15→14:30)
[2021-08-05] MEDS ORDERED: FUROSEMIDE 40 MG/4 ML VIAL IV ONE ×2 (09:15→14:30)
[2021-08-05] MEDS: AMIODARONE HCL 200 MG TAB PO SCH (09:50)
[2021-08-05] MEDS: ATORVASTATIN 20 MG TAB PO SCH (09:50)
[2021-08-05] MEDS ORDERED: ATORVASTATIN 20 MG TAB PO SCH (10:00)
[2021-08-05] MEDS ORDERED: AMIODARONE HCL 200 MG TAB PO SCH (10:00)
[2021-08-05 13:00] VITALS: BP 132/61
[2021-08-05] MEDS ORDERED: LACTULOSE 20Gm/30ML SOLN PO ONE (14:30)
[2021-08-05] MEDS: SODIUM CHLORIDE 0.9% 1,000 ML IV SCH (16:57)
[2021-08-05 17:00] VITALS: BP 127/61
[2021-08-05] MEDS: DIGOXIN 0.125 MG TAB PO SCH (21:13)
[2021-08-05 22:00] VITALS: BP 130/51
[2021-08-06] VITALS (12 sets, daily range): BP systolic 96–128; BP diastolic 39–74
[2021-08-06 01:56] LABS: Phosphorus 5.4 mg/dL (2.5-4.90)
[2021-08-06] MEDS: SODIUM CHLORIDE 0.9% 1,000 ML IV SCH ×3 (02:30→17:27)
[2021-08-06] MEDS: LEVOTHYROXINE SODIUM 100 MCG TAB PO SCH (06:05)
[2021-08-06] MEDS ORDERED: LIDOCAINE 2%HCL (LOCAL ANESTH.) INJ 20ML MDV ONE (08:30)
[2021-08-06 08:45] LABS: Basophils # (auto) 0.1 10 ^3/uL (0-0.2); Basophils % (auto) 0.7 % (0.0-2.0); Eosinophils # (auto) 0.1 10 ^3/uL (0-0.8); Eosinophils % (auto) 0.8 % (0.0-7.0); Hematocrit 41.7 % (41.0-53.0); Hemoglobin 13.6 g/dL (13.5-17.5); Lymphocytes # (auto) 1.8 10 ^3/uL (0.4-5.4); Lymphocytes % (auto) 10.8 % (10.0-50.0); Mean Corpuscular Hemoglobin 31.4 pg (28.0-32.0); Mean Corpuscular Hgb Conc. 32.6 g/dL (32.0-36.0); Mean Corpuscular Volume 96.1 fL (80.0-100.0); Monocytes # (auto) 1.1 10 ^3/uL (0-1.3); Monocytes % (auto) 6.6 % (0.0-12.0); Neutrophils # (auto) 13.3 10 ^3/uL (1.6-8.6); Neutrophils % (auto) 81.1 % (37.0-80.0); Nucleated Red Blood Cells % 0.2 %; Red Blood Cells 4.33 10^6/uL (4.5-5.90); White Blood Cell 16.4 10^3/uL (4.4-10.8)
[2021-08-06 09:28] LABS: INR 1.13 (0.9-1.15); Partial Thromboplastin Time 29.3 sec (23.6-33.0)
[2021-08-06] MEDS ORDERED: MIDAZOLAM HCL 2MG/2ML 2ml VIAL (1mg/ml) ONE ×2 (09:40→13:09)
[2021-08-06] MEDS ORDERED: fentaNYL CITRATE 100 MCG/2 ML VL ONE ×2 (09:40→11:35)
[2021-08-06] MEDS ORDERED: IODIXANOL 320MG/ML 100ML BTL IV ONE ×3 (10:53→13:01)
[2021-08-06] MEDS ORDERED: cefTRIAXone 1GM/50ML D5W 50 ML IV ONE (11:39)
[2021-08-06] MEDS: AMIODARONE HCL 200 MG TAB PO SCH (12:10)
[2021-08-06] MEDS: ATORVASTATIN 20 MG TAB PO SCH (12:10)
[2021-08-06] MEDS ORDERED: diphenhdrAMINE HCL 50 MG/1 ML VL ONE ×2 (12:12→13:34)
[2021-08-06] MEDS ORDERED: HYDROmorphone HCL 2 MG/ML VL ONE (12:52)
[2021-08-06] MEDS ORDERED: GELATIN 1 SPONGE SIZE 50 TOP ONE (12:56)
[2021-08-06] MEDS: DIGOXIN 0.125 MG TAB PO SCH (21:04)
[2021-08-06] MEDS: GABAPENTIN 300 MG CAP PO SCH (21:05)
[2021-08-07] VITALS (14 sets, daily range): BP systolic 95–117; BP diastolic 26–51
[2021-08-07] MEDS: HYDROcodone-ACET 10/325MG TAB PO PRN ×3 (03:05→18:47)
[2021-08-07] MEDS: SODIUM CHLORIDE 0.9% 1,000 ML IV SCH ×3 (03:05→21:59)
[2021-08-07] MEDS: LEVOTHYROXINE SODIUM 100 MCG TAB PO SCH (06:00)
[2021-08-07 08:29] LABS: Albumin 1.6 g/dL (3.4-5.0); Calcium 7.7 mg/dL (8.5-10.1)
[2021-08-07 08:32] LABS: BUN/Creatinine Ratio 34.7; Bilirubin, Total 2.4 mg/dL (0.2-1.0); Total Protein 5.2 g/dL (6.4-8.2)
[2021-08-07 08:38] LABS: Potassium 5.5 mmol/L (3.5-5.1)
[2021-08-07] MEDS ORDERED: FUROSEMIDE 40 MG/4 ML VIAL IV ONE (09:30)
[2021-08-07] MEDS ORDERED: SODIUM CHLORIDE 0.9% 500 ML IV ONE (09:30)
[2021-08-07] MEDS ORDERED: FUROSEMIDE 40 MG/4 ML VIAL ONE (09:33)
[2021-08-07] MEDS: ATORVASTATIN 20 MG TAB PO SCH (10:08)
[2021-08-07] MEDS: AMIODARONE HCL 200 MG TAB PO SCH (10:08)
[2021-08-07 11:15] LABS: Eosinophils # (auto) 0.1 10 ^3/uL (0-0.8); Hematocrit 39.4 % (41.0-53.0); Nucleated Red Blood Cells % 0.2 %
[2021-08-07 11:32] LABS: Basophils # (auto) 0.2 10 ^3/uL (0-0.2); Basophils % (auto) 1.5 % (0.0-2.0); Eosinophils % (auto) 0.7 % (0.0-7.0); Hemoglobin 13.1 g/dL (13.5-17.5); Lymphocytes # (auto) 0.6 10 ^3/uL (0.4-5.4); Lymphocytes % (auto) 4.2 % (10.0-50.0); Mean Corpuscular Hemoglobin 31.1 pg (28.0-32.0); Mean Corpuscular Hgb Conc. 33.3 g/dL (32.0-36.0); Mean Corpuscular Volume 93.5 fL (80.0-100.0); Monocytes # (auto) 0.8 10 ^3/uL (0-1.3); Monocytes % (auto) 5.9 % (0.0-12.0); Neutrophils # (auto) 11.6 10 ^3/uL (1.6-8.6); Neutrophils % (auto) 87.7 % (37.0-80.0); Red Blood Cells 4.22 10^6/uL (4.5-5.90); White Blood Cell 13.3 10^3/uL (4.4-10.8)
[2021-08-07 13:24] LABS: INR 1.25 (0.9-1.15); Partial Thromboplastin Time 33.3 sec (23.6-33.0)
[2021-08-07] MEDS: DIGOXIN 0.125 MG TAB PO SCH (21:49)
[2021-08-07] MEDS: GABAPENTIN 300 MG CAP PO SCH (21:49)
[2021-08-08 05:00] VITALS: BP 106/62
[2021-08-08] MEDS: LEVOTHYROXINE SODIUM 100 MCG TAB PO SCH (06:31)
[2021-08-08] MEDS: HYDROcodone-ACET 10/325MG TAB PO PRN ×2 (07:12→12:54)
[2021-08-08 09:00] VITALS: BP 96/29
[2021-08-08] MEDS: AMIODARONE HCL 200 MG TAB PO SCH (09:47)
[2021-08-08] MEDS: ATORVASTATIN 20 MG TAB PO SCH (09:47)
[2021-08-08 13:00] VITALS: BP 98/43
[2021-08-08 17:00] VITALS: BP 111/42
== END 2021-08-08 20:04 | disposition home or self-care (01) | DRG 405 ==
LOC: CATH 06:54 → TELE 14:12 → TELE-CENTR 19:20 → ICU WEST 08-06 17:01 → TELE-WESTW 08-07 10:36
PROVIDERS: ADMIT Internal Medicine Cardiovascular Disease; ATTEND Internal Medicine Cardiovascular Disease
PROC: 06183J4 Bypass Portal Vein to Hepatic Vein with Synthetic Substitute, Percutaneous Approach (ICD-10-PCS; principal; 2021-08-06)
PROC: 0W9G3ZZ Drainage of Peritoneal Cavity, Percutaneous Approach (ICD-10-PCS; 2021-08-06)
DX: K74.60 Unspecified cirrhosis of liver (principal); E43 Unspecified severe protein-calorie malnutrition; C92.10 Chronic myeloid leukemia, BCR/ABL-positive, not having achieved remission; I50.22 Chronic systolic (congestive) heart failure; E87.1 Hypo-osmolality and hyponatremia; K76.6 Portal hypertension; R64 Cachexia; R18.8 Other ascites; E87.5 Hyperkalemia; N13.9 Obstructive and reflux uropathy, unspecified; I48.91 Unspecified atrial fibrillation; D64.9 Anemia, unspecified; Z20.822 Contact with and (suspected) exposure to COVID-19; I25.10 Atherosclerotic heart disease of native coronary artery without angina pectoris; Z68.21 Body mass index [BMI] 21.0-21.9, adult; Z95.0 Presence of cardiac pacemaker; N18.2 Chronic kidney disease, stage 2 (mild)
CPT/HCPCS: 37182; 49083; U0003; 36415; 76942; 80048; 80053; 80162; 84100; 84132; 85025; 85610; 85730; 94003; 99152; 99153; A4565; C1889; G0378; J0696; J2250; Q9967

== ENCOUNTER → 2021-08-20 | Outpatient (CLI) | payer MEDICARE, OTHER ==
[2021-08-20 15:04] LABS: Hematocrit 33.5 % (41.0-53.0)
[2021-08-20 15:06] LABS: Basophils # (auto) 0.1 10 ^3/uL (0-0.2); Basophils % (auto) 0.5 % (0.0-2.0); Eosinophils # (auto) 0.1 10 ^3/uL (0-0.8); Eosinophils % (auto) 0.5 % (0.0-7.0); Hemoglobin 11.2 g/dL (13.5-17.5); Lymphocytes # (auto) 2.1 10 ^3/uL (0.4-5.4); Lymphocytes % (auto) 9.2 % (10.0-50.0); Mean Corpuscular Hemoglobin 31.5 pg (28.0-32.0); Mean Corpuscular Hgb Conc. 33.4 g/dL (32.0-36.0); Mean Corpuscular Volume 94.4 fL (80.0-100.0); Monocytes # (auto) 1.8 10 ^3/uL (0-1.3); Monocytes % (auto) 8.1 % (0.0-12.0); Neutrophils # (auto) 18.4 10 ^3/uL (1.6-8.6); Neutrophils % (auto) 81.7 % (37.0-80.0); Red Blood Cells 3.55 10^6/uL (4.5-5.90); Red Cell Distribution Width 18.6 % (11.8-14.3); White Blood Cell 22.5 10^3/uL (4.4-10.8)
[2021-08-20 15:11] LABS: Calcium 7.9 mg/dL (8.5-10.1); Potassium 4.2 mmol/L (3.5-5.1)
[2021-08-20 15:15] LABS: BUN/Creatinine Ratio 19.8
== END | disposition home or self-care (01) ==
LOC: LAB 14:10
PROVIDERS: ATTEND Internal Medicine Cardiovascular Disease
DX: Z01.812 Encounter for preprocedural laboratory examination (principal)
CPT/HCPCS: 80048

== ENCOUNTER → 2021-08-22 | Outpatient (CLI) | payer MEDICARE, OTHER ==
[~2021-08-22] MED LIST changes: +LIDOCAINE 2%HCL (LOCAL ANESTH.) INJ 20ML MDV ONE
[2021-08-22 10:52] LABS: INR 1.19 (0.9-1.15); Partial Thromboplastin Time 34.1 sec (23.6-33.0)
== END | disposition home or self-care (01) ==
LOC: US 08:53
PROVIDERS: ATTEND Internal Medicine Cardiovascular Disease
DX: R18.8 Other ascites (principal); J43.9 Emphysema, unspecified; F41.9 Anxiety disorder, unspecified; F32.A Depression, unspecified; Z80.42 Family history of malignant neoplasm of prostate; Z81.8 Family history of other mental and behavioral disorders
CPT/HCPCS: 36415; 49083; 76705; 85610; 85730; C1729; 76942

== ENCOUNTER → 2021-09-09 | Outpatient (CLI) | payer MEDICARE, OTHER ==
[~2021-09-09] MED LIST changes: -APIX5TAB PO; +IOHEXOL 350 MG/ML 100ML IJ ONE; -LIDOCAINE 2%HCL (LOCAL ANESTH.) INJ 20ML MDV ONE; -OMEG120017 PO
[2021-09-09 10:04] VITALS: BP 117/48
[2021-09-09 12:11] VITALS: BP 131/50
== END | disposition home or self-care (01) ==
LOC: Rad HDHVI 09:52
PROVIDERS: ATTEND Internal Medicine Cardiovascular Disease
DX: R16.1 Splenomegaly, not elsewhere classified (principal); R91.1 Solitary pulmonary nodule; J44.9 Chronic obstructive pulmonary disease, unspecified; I70.0 Atherosclerosis of aorta; Q25.46 Tortuous aortic arch; M47.9 Spondylosis, unspecified; Z95.0 Presence of cardiac pacemaker
CPT/HCPCS: 36415; 74177; 82565; 84520; Q9967

== ENCOUNTER → 2021-10-13 | Outpatient (CLI) | payer MEDICARE, OTHER ==
[~2021-10-13] VITALS: Ht 30.5 cm; Wt 0.5 kg
[~2021-10-13] MED LIST changes: +BUMETANIDE 1mg/4ml VIAL (0.25mg/ml) ONE; +BUMETANIDE 2.5mg/10ml (0.25 mg/ml) INJ IV ONE; -IOHEXOL 350 MG/ML 100ML IJ ONE
[2021-10-13 11:17] VITALS: BP 131/52
[2021-10-13 11:40] VITALS: BP 121/53
== END | disposition home or self-care (01) ==
LOC: CHF HDHVI 11:21
PROVIDERS: ATTEND Internal Medicine Cardiovascular Disease
DX: R60.9 Edema, unspecified (principal)
CPT/HCPCS: 96374; G0463; J3490